=== PATIENT | male | born 1960 | race Caucasian/White ===

== ENCOUNTER → 2019-11-01 | Outpatient (REF) | payer BC ==
[2019-11-01 17:20] LABS: BLOOD UREA NITROGEN 23 MG/DL (7-18); CALCIUM LEVEL 8.6 MG/DL (8.5-10.1); CARBON DIOXIDE LEVEL 30 MEQ/L (21-32); CHLORIDE LEVEL 100 MEQ/L (98-107); CREATININE FOR GFR 1.07 MG/DL (0.70-1.30); GLOMERULAR FILTRATION RATE > 60.0 (>56); GLUCOSE, FASTING 103 MG/DL (70-100); POTASSIUM SERUM 4.4 MEQ/L (3.5-5.1); SODIUM LEVEL 137 MEQ/L (136-145)
== END ==
LOC: M SFHCCLAY 10:23
PROVIDERS: ATTEND Family Medicine
DX: N17.9 Acute kidney failure, unspecified (principal)

== ENCOUNTER → 2019-12-14 | Outpatient (CLI) | payer BC ==
--- NOTE | 2019-12-21 18:07 | SLEEPCENT ---
DATE OF PROCEDURE: 12/14/2019 ORDERED BY: Dr. Alec Franklin Nocturnal polysomnography was performed for evaluation of sleep physiology in this patient with a history of snoring and nonrestorative sleep who has comorbidities of coronary artery disease and cardiac dysrhythmia. 8 hours and 4 minutes of data were reviewed. There were 281.5 minutes of sleep identified. Sleep latency was prolonged at 72 minutes. Rapid eye movement (REM) latency was prolonged at greater than 100 minutes. Sleep architecture showed poor progression and improvement was seen later in the study. Overall sleep efficiency was 58.9%. The patient's electrocardiogram showed sinus rhythm with occasional PACs. Average heart rate 60 beats per minute. EEG showed normal waveforms for awake and sleep. There were 49 respiratory events identified of 10 seconds in duration or greater for an apnea-hypopnea index of 10.4. The events were associated with significant oxygen desaturation into the 70s triggering a cessation of testing for the application of pressure therapy. Shortly after 1:00 a.m. testing was stopped, and the patient was fit with a ResMed AirFit F20 full face mask of medium size. Throughout the remaining hours of testing, pressure titration was performed to an optimal pressure of +18. There was some limb activity. Limb movement arousal index, however, was only 1.5. IMPRESSION: Obstructive sleep apnea syndrome (G47.33). Apnea-hypopnea index 10.4. RECOMMENDATIONS: Nightly use of pressure therapy 18 of water. MTDD
== END ==
LOC: M SLEEP 20:00
PROVIDERS: ATTEND Internal Medicine Pulmonary Disease
DX: G47.33 Obstructive sleep apnea (adult) (pediatric) (principal)

== ENCOUNTER → 2020-02-19 | Outpatient (REF) | payer BC, OTHER | LOC: M SFHCCLAY 18:57 | PROVIDERS: ATTEND Family Medicine | DX: L02.01 Cutaneous abscess of face (principal) ==

== ENCOUNTER 2021-05-08 17:25 | Inpatient (IN) | payer OTHER, MEDICAID ==
[~2021-05-08] VITALS: Ht 182.9 cm; Wt 129.6 kg
[2021-05-08 18:40] LABS: CALCIUM LEVEL 9.1 MG/DL (8.5-10.1); CREATININE FOR GFR 2.06 MG/DL (0.70-1.30); GLOMERULAR FILTRATION RATE 35.4 (>56); POTASSIUM SERUM 5.5 MEQ/L (3.5-5.1)
[2021-05-08] MEDS ORDERED: NS 1,000 ML IV ONE (23:40)
[2021-05-09 00:20] LABS: BASO # 0.1 10^3/uL (0.0-0.2); BASO % 0.7 % (0.0-1.0); EOS # 0.6 10^3/uL (0.0-0.5); EOS % 7.5 % (0.0-3.0); HEMATOCRIT 34.1 % (42.0-52.0); HEMOGLOBIN 10.7 g/dl (13.5-17.5); LYMPH # 2.6 10^3/uL (1.5-5.0); LYMPH % 30.9 % (24.0-44.0); MEAN CORPUSCULAR HEMOGLOBIN 31.6 pg (27.0-33.0); MEAN CORPUSCULAR HGB CONC 31.4 g/dl (32.0-36.5); MEAN CORPUSCULAR VOLUME 100.6 fl (80.0-96.0); MONO # 0.4 10^3/uL (0.0-0.8); MONO % 5.1 % (2.0-8.0); NEUTROPHILS # 4.6 10^3/uL (1.5-8.5); NEUTROPHILS % 55.4 % (36.0-66.0); PLATELET COUNT, AUTOMATED 253 10^3/uL (150-450); RED BLOOD COUNT 3.39 10^6/uL (4.30-6.10); WHITE BLOOD COUNT 8.4 10^3/uL (4.0-10.0)
[2021-05-09 00:48] LABS: HEMOGLOBIN A1c 5.8 %
[2021-05-09 00:49] LABS: CK-MB VALUE MASS 1.1 NG/ML (<3.6); CPK CREATINE PHOSPHOKINASE 76 U/L (39-308); MB/CK RELATIVE INDEX 1.45 (< OR =4)
[2021-05-09 00:58] LABS: BILIRUBIN,DIRECT 0.1 MG/DL (0.0-0.2); BILIRUBIN,TOTAL 0.4 MG/DL (0.2-1.0); FREE T4 1.45 NG/DL (0.76-1.46); THYROID STIMULATING HORMONE 0.685 uIU/ML (0.358-3.740); TOTAL PROTEIN 8.2 GM/DL (6.4-8.2)
--- OUTSIDE RECORDS SUMMARY | 2021-05-09 01:41 | CCD ---
Author Author [facility] Organization [facility] Address Unknown Phone Unavailable Care Team Providers Care Learning Disabilities Resource Teacher Name Role Phone Jenny Rosario Unavailable PROBLEMS Type Condition ICD9-CM Code [id number] Code Onset Dates Condition S tatus W/U Status Risk SNOMED Code Notes Problem Bilateral tinnitus H93.13 Active confirmed 4 592077152260 Problem Arteriosclerotic heart disease I25.10 Active confir med 70006248 Problem Muscular deconditioning R29.898 Active confirmed 24763308 Problem Cigarette nicotine dependence in remission F17.211 Active confirmed 726573737 Problem Low back pain M54.5 Active confirmed 972398 009 Problem Chronic systolic (congestive) heart failure I50.22 Active confirmed 624244090 Problem Paroxysmal atrial fibrillation I48.0 Active confir med 869144345 Problem Non-seasonal allergic rhinitis, unspecified trigger J30.89 Active confirmed 64361757 Problem Chronic obstructive pulmonary disease, unspecified COPD ty pe J44.9 Active confirmed 78968690 Problem 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 Active confirmed 363350770 Problem Pulmonary nodule R91.1 Active confirmed 786 166097 Problem Other chronic pain G89.29 Active confirmed 8 3880193 Problem Obstructive sleep apnea (adult) (pediatric) G47.33 Active confirmed 39705455 Problem Nicotine dependence, cigarettes, uncomplicated F17 .210 Active confirmed 65892664 Problem Decreased appetite R63.0 Active confirmed 6 [id number] ALLERGIES No Known Allergies ENCOUNTERS from 1960 to 2021-05-06 Encounter Location Date Provider Diagnosis [facility] [place] [address] [phone] [place] [address] Apr, Jenny Rosario Low back pain M54.5 IMMUNIZATIONS No Information SOCIAL HISTORY Tobacco Use: Social History Observation Description Date Details (start date - stop date) Current Smoker Sex Assigned At : Social History Observation Description Sex Assigned At Unknown Education: Question Answer Notes Level of Education: Finished High School Audit Question Answer Notes Total Score: 5 Interpretation: Alcohol Education Sexual Hx: Question Answer Notes Had sex in the last 12 months (vaginal, oral, or anal)? No Have you ever had an STD? No Drug and Alcohol Question Answer Notes Total Score: 1 Interpretation: Low level Alcohol Screening: Question Answer Notes Did you have a drink containing alcohol in the past year? Ye s Points 3 Interpretation Negative How often did you have six or more drinks on one occas ion in the past year? Never (0 points) How many drinks did you have on a typica l day when you were drinking in the past year? 1 or 2 (0 points) How often did you have a drink containing alcohol in t he past year? Two to three times per week (3 points) Tobacco Use: Question Answer Notes Are you a: current smoker Smoking 0-5 cigarett es per day REASON FOR REFERRAL No Information VITAL SIGNS No information MEDICATIONS Medication SIG (Take, Route, Frequency, Duration) Notes Start Da te End Date Status ProAir HFA 108 (90 Base) mcg/act 2 puffs as needed Inh alation qid prn for 90 day(s) Active Lisinopril 40 MG TAKE ONE TABLET BY MOUTH EVERY DAY for 90 Active Metoprolol Tartrate 25 MG 1 tablet with food Orally Twice a day for 90 days Active Fluticasone Propionate 50 MCG/ACT 1 spray in each nostril Nasally bid Active Amiodarone HCl 200 MG 1/2 tablet Orally TUE,TUE,TUE everyother day Active Atorvastatin Calcium 40 MG TAKE ONE TABLET BY MOUTH EVERY DAY for 90 Active Umeclidinium-Vilanterol 62.5-25 MCG/INH 1 puff Inhalation Once a day Active Acetaminophen 325 MG 1 capsule as needed Orally every 6 hrs Active Furosemide 40 MG TAKE ONE TABLET BY MOUTH EVERY DAY for 90 Active Apixaban 5 MG as directed Orally bid Active Spironolactone 50 MG TAKE ONE TABLET BY MOUTH EVERY DAY for 90 Active Albuterol 90 MCG/ACT 1-2 puff Inhalation every 4 hours as needed for 30 days Active Levalbuterol HCl 1.25 MG/3ML 3 ml Inhalation every 8 hrs Active traMADol HCl 50 MG 1 tablet as needed Orally bid for 30 Days Apr, Active PROCEDURES No Information RESULTS No Results REASON FOR VISIT Refill - Tramadol MEDICAL (GENERAL) HISTORY Type Description Date Medical History Pulmonary embolism Medical History AFIB Medical History Infarctions x3 Medical History hypertension Medical History oxygen-dependent COPD: 3 L Medical History COVID-19 Surgical History No know Surgical history Hospitalization History [facility] 2019 Hospitalization History Heart attacks Goals Section No Information Health Concerns No Information MEDICAL EQUIPMENT No Information MENTAL STATUS No Information FUNCTIONAL STATUS No Information ASSESSMENTS Encounter Date Diagnosis Assessment Notes Treatment Notes Treatm ent Clinical Notes Apr, Low back pain (ICD-10 - M54.5) PLAN OF TREATMENT Medication Medication Name Sig Start Date Stop Date Atorvastatin Calcium 40 MG TAKE ONE TABLET BY MOUTH EVERY DAY fo r 90 Lisinopril 40 MG TAKE ONE TABLET BY MOUTH EVERY DAY for 90 Furosemide 40 MG TAKE ONE TABLET BY MOUTH EVERY DAY for 90 Spironolactone 50 MG TAKE ONE TABLET BY MOUTH EVERY DAY for 90 traMADol HCl 50 MG 1 tablet as needed Orally bid for 30 Days Apr, Next Appt Details Provider Name:Jenny Rosario, 2021-05 01:00:00 PM, [address] , , [place], [address], Insurance Providers Payer Name Payer Address Payer Phone Insured Name Patient Relati onship to Insured Coverage Start Date Coverage End Date [facility] [address] [facility] [address] [phone] DAYCHRISTIANO self MEDICAID [employer] [address] [facility] [address] [phone] DAY,CHRISTIANO Lr self
--- OUTSIDE RECORDS SUMMARY | 2021-05-09 01:41 | CCD ---
Author Author [facility] Organization [facility] Address Unknown Phone Unavailable Care Team Providers Care Manager Privacy Name Role Phone Jenny Rosario Unavailable PROBLEMS Type Condition ICD9-CM Code YQJ85-VA Code Onset Dates Condition S tatus W/U Status Risk SNOMED Code Notes Problem Bilateral tinnitus H93.13 Active confirmed 4 [id number] Problem Arteriosclerotic heart disease I25.10 Active confir med 25335686 Problem Muscular deconditioning R29.898 Active confirmed 89679458 Problem Cigarette nicotine dependence in remission F17.211 Active confirmed 959147178 Problem Low back pain M54.5 Active confirmed 835444 009 Problem Chronic systolic (congestive) heart failure I50.22 Active confirmed 394225735 Problem Paroxysmal atrial fibrillation I48.0 Active confir med 371009871 Problem Non-seasonal allergic rhinitis, unspecified trigger J30.89 Active confirmed 65532839 Problem Chronic obstructive pulmonary disease, unspecified COPD ty pe J44.9 Active confirmed 35478078 Problem 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 [place] [address] [phone] [place] [address] Feb, Jenny Rosario Low back pain M54.5 IMMUNIZATIONS [...] 1/2 tablet Orally TUE,TUE,TUE everyother day Active traMADol HCl 50 MG 1 tablet as needed Orally bid for 30 Days Feb, Active Umeclidinium-Vilanterol 62.5-25 MCG/INH 1 puff Inhalation Once a day Active Acetaminophen 325 MG 1 capsule as needed Orally every 6 hrs Active Spironolactone 50 MG TAKE ONE TABLET BY MOUTH EVERY DAY for 90 Active Apixaban 5 MG as directed Orally bid Active Atorvastatin Calcium 40 MG TAKE ONE TABLET BY MOUTH EVERY DAY for 90 Active Albuterol 90 MCG/ACT 1-2 puff Inhalation every 4 hours as needed for 30 days Active Levalbuterol HCl 1.25 MG/3ML 3 ml Inhalation every 8 hrs Active Furosemide 40 MG TAKE ONE TABLET BY MOUTH EVERY DAY for 90 Active PROCEDURES No Information RESULTS No Results REASON FOR VISIT Refill - Tramadol MEDICAL (GENERAL) HISTORY Type Description Date Medical History Pulmonary embolism Medical History AFIB Medical History Infarctions x3 Medical History hypertension Medical History oxygen-dependent COPD: 3 L Medical History COVID-19 Surgical History No know Surgical history Hospitalization History [facility] for [facility] 2019 Hospitalization History Heart attacks Goals Section No Information Health Concerns No Information MEDICAL EQUIPMENT No Information MENTAL STATUS No Information FUNCTIONAL STATUS No Information ASSESSMENTS Encounter Date Diagnosis Assessment Notes Treatment Notes Treatm ent Clinical Notes Feb, Low back pain (ICD-10 - M54.5) PLAN OF TREATMENT Medication Medication Name Sig Start Date Stop Date traMADol HCl 50 MG 1 tablet as needed Orally bid for 30 Days Feb, Lisinopril 40 MG TAKE ONE TABLET BY MOUTH EVERY DAY for 90 Spironolactone 50 MG TAKE ONE TABLET BY MOUTH EVERY DAY for 90 Atorvastatin Calcium 40 MG TAKE ONE TABLET BY MOUTH EVERY DAY fo r 90 Furosemide 40 MG TAKE ONE TABLET BY MOUTH EVERY DAY for 90 Next Appt Details Provider Name:Jenny Rosario, 2021-05 01:00:00 PM, [address] , , [place], [address], Insurance Providers Payer Name Payer Address Payer Phone Insured Name Patient Relati onship to Insured Coverage Start Date Coverage End Date MEDICAID [employer] [address] [facility] [id number] [place] [facility] [address] [facility] [address] CHRISTIANO BEASLEY self
--- OUTSIDE RECORDS SUMMARY | 2021-05-09 01:41 | CCD ---
Author Author [facility] Organization [facility] Address Unknown Phone Unavailable Care Team Providers Care Industrial Maintenance Instructor Name Role Phone Jenny Rosario Unavailable PROBLEMS Type Condition ICD9-CM Code SHU59-FA Code Onset Dates Condition S tatus W/U Status Risk SNOMED Code Notes Problem Bilateral tinnitus H93.13 Active confirmed 4 [id number] Problem Arteriosclerotic heart disease I25.10 Active confir med 48696028 Problem Muscular deconditioning R29.898 Active confirmed 37013327 Problem Cigarette nicotine dependence in remission F17.211 Active confirmed 361563999 Problem Low back pain M54.5 Active confirmed 082844 009 Problem Chronic systolic (congestive) heart failure I50.22 Active confirmed 770782326 Problem Paroxysmal atrial fibrillation I48.0 Active confir med 609929899 Problem Non-seasonal allergic rhinitis, unspecified trigger J30.89 Active confirmed 61742363 Problem Chronic obstructive pulmonary disease, unspecified COPD ty pe J44.9 Active confirmed 82723558 Problem 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 Active confirmed 819083751 Problem Pulmonary nodule R91.1 Active confirmed 786 175964 Problem Other chronic pain G89.29 Active confirmed 8 4561336 Problem Obstructive sleep apnea (adult) (pediatric) G47.33 Active confirmed 88318114 Problem Nicotine dependence, cigarettes, uncomplicated F17 .210 Active confirmed 56292183 Problem Decreased appetite R63.0 Active confirmed 6 3836446 ALLERGIES No Known Allergies ENCOUNTERS from 1960 to 2021-04-02 Encounter Location Date Provider Diagnosis [facility] [place] [address] [phone] [place] [address] Mar, Jenny Rosario Low back pain M54.5 IMMUNIZATIONS [...] Notes Start Da te End Date Status Apixaban 5 MG as directed Orally bid Active traMADol HCl 50 MG 1 tablet as needed Orally bid for 30 Days Mar, Active Metoprolol Tartrate 25 MG 1 tablet with food Orally Twice a day for 90 days Active Fluticasone Propionate 50 MCG/ACT 1 spray in each nostril Nasally bid Active Amiodarone HCl 200 MG 1/2 tablet Orally WED,FRI,SUN everyother day Active Umeclidinium-Vilanterol 62.5-25 MCG/INH 1 puff Inhalation Once a day Active ProAir HFA 108 (90 Base) mcg/act 2 puffs as needed Inh alation qid prn for 90 day(s) Active Lisinopril 40 MG TAKE ONE TABLET BY MOUTH EVERY DAY for 90 Active Spironolactone 50 MG TAKE ONE TABLET BY MOUTH EVERY DAY for 90 Active Levalbuterol HCl 1.25 MG/3ML 3 ml Inhalation every 8 hrs Active Atorvastatin Calcium 40 MG TAKE ONE TABLET BY MOUTH EVERY DAY for 90 Active Albuterol 90 MCG/ACT 1-2 puff Inhalation every 4 hours as needed for 30 days Active Acetaminophen 325 MG 1 capsule as [...] History No know Surgical history Hospitalization History [facility] [place] Hospitalization History Heart attacks Goals Section No Information Health Concerns No Information MEDICAL EQUIPMENT No Information MENTAL STATUS No Information FUNCTIONAL STATUS No Information ASSESSMENTS Encounter Date Diagnosis Assessment Notes Treatment Notes Treatm ent Clinical Notes Mar, Low back pain (ICD-10 - M54.5) PLAN OF TREATMENT Medication Medication Name Sig Start Date Stop Date Lisinopril 40 MG TAKE ONE TABLET BY MOUTH EVERY DAY for 90 traMADol HCl 50 MG 1 tablet as needed Orally bid for 30 Days Mar, Spironolactone 50 MG TAKE ONE TABLET BY MOUTH EVERY DAY for 90 Atorvastatin Calcium 40 MG TAKE ONE TABLET BY MOUTH EVERY DAY fo r 90 Furosemide 40 MG TAKE ONE TABLET BY MOUTH EVERY DAY for 90 Next Appt Details Provider Name:Jenny Rosario, 2021-05 01:00:00 PM, [address] , , [place], [address], Insurance Providers Payer Name Payer Address Payer Phone Insured Name Patient Relati onship to Insured Coverage Start Date Coverage End Date MEDICAID App[employer] [address] [facility] [id number] [place]RIST[place] [facility] [address] [facility] [phone] CHRISTIANO BEASLEY self
--- OUTSIDE RECORDS SUMMARY | 2021-05-09 01:42 | CCD ---
Author Author [facility] Organization [facility] Address Unknown Phone Unavailable Care Team Providers Care Terrazzo Polisher Name Role Phone Kocan, J Siomara CHAIN HOIST OPERATOR Unavailable Unavailable Kocan, J Siomara CHAIN HOIST OPERATOR Unavailable Unavailable Kocan, J Siomara CHAIN HOIST OPERATOR Unavailable Unavailable Kocan, J Siomara CHAIN HOIST OPERATOR Unavailable Unavailable Kocan, J Siomara CHAIN HOIST OPERATOR Unavailable Unavailable Kocan, J Siomara CHAIN HOIST OPERATOR Unavailable Unavailable Kocan, J Siomara CHAIN HOIST OPERATOR Unavailable Unavailable Kocan, J Siomara CHAIN HOIST OPERATOR Unavailable Unavailable Kocan, J Siomara CHAIN HOIST OPERATOR Unavailable Unavailable Kocan, J Siomara CHAIN HOIST OPERATOR Unavailable Unavailable Kocan, J Siomara CHAIN HOIST OPERATOR Unavailable Unavailable Kocan, J Siomara CHAIN HOIST OPERATOR Unavailable Unavailable Kocan, J Siomara CHAIN HOIST OPERATOR Unavailable Unavailable Sloane Neumann MD Unavailable Unavailable Sloane Neumann MD Unavailable Unavailable Sloane Neumann MD Unavailable Unavailable Sloane Neumann MD Unavailable Unavailable Sloane Neumann MD Unavailable Unavailable Sloane Neumann MD Unavailable Unavailable Sloane Neumann MD Unavailable Unavailable Sloane Neumann MD Unavailable Unavailable Sloane Neumann MD Unavailable Unavailable Sloane Neumann MD Unavailable Unavailable Sloane Neumann MD Unavailable Unavailable Sloane Neumann MD Unavailable Unavailable Sloane Neumann MD Unavailable Unavailable Sloane Neumann MD Unavailable Unavailable Sloane Neumann MD Unavailable Unavailable Sloane Neumann MD Unavailable Unavailable Sloane Neumann MD Unavailable Unavailable Sloane Neumann MD Unavailable Unavailable Sloane Neumann MD Unavailable Unavailable Sloane Neumann MD Unavailable Unavailable Sloane Neumann MD Unavailable Unavailable Sloane Neumann MD Unavailable Unavailable Sloane Neumann MD Unavailable Unavailable Sloane Neumann MD Unavailable Unavailable Sloane Neumann MD Unavailable Unavailable Sloane Neumann MD Unavailable Unavailable Sloane Neumann MD Unavailable Unavailable Sloane Neumann MD Unavailable Unavailable Sloane Neumann MD Unavailable Unavailable Sloane Neumann MD Unavailable Unavailable Sloane Neumann MD Unavailable Unavailable Sloane Neumann MD Unavailable Unavailable Sloane Neumann MD Unavailable Unavailable Sloane Neumann MD Unavailable Unavailable Sloane Neumann MD Unavailable Unavailable Sloane Neumann MD Unavailable Unavailable Sloane Neumann MD Unavailable Unavailable Sloane Neumann MD Unavailable Unavailable Sloane Neumann MD Unavailable Unavailable Sloane Neumann MD Unavailable Unavailable Sloane Neumann MD Unavailable Unavailable Sloane Neumann MD Unavailable Unavailable Sloane Neumann MD Unavailable Unavailable Sloane Neumann MD Unavailable Unavailable Sloane Neumann MD Unavailable Unavailable Sloane Neumann MD Unavailable Unavailable Sloane Neumann MD Unavailable Unavailable Sloane Neumann MD Unavailable Unavailable Sloane Neumann MD Unavailable Unavailable Sloane Neumann MD Unavailable Unavailable Sloane Neumann MD Unavailable Unavailable Sloane Neumann MD Unavailable Unavailable Sloane Neumann MD Unavailable Unavailable Sloane Neumann MD Unavailable Unavailable Sloane Neumann MD Unavailable Unavailable Sloane Neumann MD Unavailable Unavailable Sloane Neumann MD Unavailable Unavailable Sloane Neumann MD Unavailable Unavailable Sloane Neumann MD Unavailable Unavailable Sloane Neumann MD Unavailable Unavailable Sloane Neumann MD Unavailable Unavailable Sloane Neumann MD Unavailable Unavailable Sloane Neumann MD Unavailable Unavailable Sloane Neumann MD Unavailable Unavailable Sloane Neumann MD Unavailable Unavailable Sloane Neumann MD Unavailable Unavailable Sloane Neumann MD Unavailable Unavailable Sloane Neumann MD Unavailable Unavailable Sloane Neumann MD Unavailable Unavailable Sloane Neumann MD Unavailable Unavailable Sloane Neumann MD Unavailable Unavailable Sloane Neumann MD Unavailable Unavailable Sloane Neumann MD Unavailable Unavailable Sloane Neumann MD Unavailable Unavailable JULIA COFFMAN MD Unavailable Unavailable JULIA COFFMAN MD Unavailable Unavailable JULIA COFFMAN MD Unavailable Unavailable JULIA COFFMAN MD Unavailable Unavailable AUGUSTUS, DUMONT MD Unavailable Unavailable AUGUSTUS, DUMONT MD Unavailable Unavailable AUGUSTUS, DUMONT MD Unavailable Unavailable AUGUSTUS, DUMONT MD Unavailable Unavailable AUGUSTUS, DUMONT MD Unavailable Unavailable AUGUSTUS, DUMONT MD Unavailable Unavailable AUGUSTUS, DUMONT MD Unavailable Unavailable AUGUSTUS, DUMONT MD Unavailable Unavailable AUGUSTUS, DUMONT MD Unavailable Unavailable AUGUSTUS, DUMONT MD Unavailable Unavailable AUGUSTUS, DUMONT MD Unavailable Unavailable AUGUSTUS, DUMONT MD Unavailable Unavailable AUGUSTUS, DUMONT MD Unavailable Unavailable AUGUSTUS, DUMONT MD Unavailable Unavailable AUGUSTUS, DUMONT MD Unavailable Unavailable AUGUSTUS, DUMONT MD Unavailable Unavailable AUGUSTUS, DUMONT MD Unavailable Unavailable AUGUSTUS, DUMONT MD Unavailable Unavailable AUGUSTUS, DUMONT MD Unavailable Unavailable AUGUSTUS, DUMONT MD Unavailable Unavailable AUGUSTUS, DUMONT MD Unavailable Unavailable AUGUSTUS, DUMONT MD Unavailable Unavailable AUGUSTUS, DUMONT MD Unavailable Unavailable AUGUSTUS, DUMONT MD Unavailable Unavailable AUGUSTUS, DUMONT MD Unavailable Unavailable AUGUSTUS, DUMONT MD Unavailable Unavailable AUGUSTUS, DUMONT MD Unavailable Unavailable AUGUSTUS, DUMONT MD Unavailable Unavailable AUGUSTUS, DUMONT MD Unavailable Unavailable AUGUSTUS, DUMONT MD Unavailable Unavailable AUGUSTUS, DUMONT MD Unavailable Unavailable AUGUSTUS, DUMONT MD Unavailable Unavailable AUGUSTUS, DUMONT MD Unavailable Unavailable AUGSUTUS, DUMONT MD Unavailable Unavailable AUGUSTUS, DUMONT MD Unavailable Unavailable AUGUSTUS, DUMONT MD Unavailable Unavailable AUGUSTUS, DUMONT MD Unavailable Unavailable AUGUSTUS, DUMONT MD Unavailable Unavailable AUGUSTUS, DUMONT MD Unavailable Unavailable AUGUSTUS, DUMONT MD Unavailable Unavailable AUGUSTUS, DUMONT MD Unavailable Unavailable AUGUSTUS, DUMONT MD Unavailable Unavailable AUGUSTUS, DUMONT MD Unavailable Unavailable AUGUSTUS, DUMONT MD Unavailable Unavailable AUGUSTUS, JULIA BLOCK Unavailable Unavailable AUGUSTUS, DUMONT MD Unavailable Unavailable AUGUSTUS, DUMONT MD Unavailable Unavailable AUGUSTUS, DUMONT MD Unavailable Unavailable AUGUSTUS, DUMONT MD Unavailable Unavailable AUGUSTUS, DUMONT MD Unavailable Unavailable AUGUSTUS, DUMONT MD Unavailable Unavailable SEARS, A SANDIP DO Unavailable Unavailable SEARS, A SANDIP DO Unavailable Unavailable SEARS, A SANDIP DO Unavailable Unavailable SEARS, A SANDIP DO Unavailable Unavailable SEARS, A SANDIP DO Unavailable Unavailable SEARS, A SANDIP DO Unavailable Unavailable SEARS, A SANDIP DO Unavailable Unavailable SEARS, A SANDIP DO Unavailable Unavailable SEARS, A SANDIP DO Unavailable Unavailable SEARS, A SANDIP DO Unavailable Unavailable SEARS, A SANDIP DO Unavailable Unavailable SEARS, A SANDIP DO Unavailable Unavailable SEARS, A SANDIP DO Unavailable Unavailable SEARS, A SANDIP DO Unavailable Unavailable SEARS, A SANDIP DO Unavailable Unavailable SEARS, A SANDIP DO Unavailable Unavailable SEARS, A SANDIP DO Unavailable Unavailable SEARS, A SANDIP DO Unavailable Unavailable SEARS, A SANDIP DO Unavailable Unavailable SEARS, A SANDIP DO Unavailable Unavailable SEARS, A SANDIP DO Unavailable Unavailable SEARS, A SANDIP DO Unavailable Unavailable SEARS, A SANDIP DO Unavailable Unavailable SEARS, A SANDIP DO Unavailable Unavailable SEARS, A SANDIP DO Unavailable Unavailable SEARS, A SANDIP DO Unavailable Unavailable SEARS, A SANDIP DO Unavailable Unavailable SEARS, A SANDIP DO Unavailable Unavailable SEARS, A SANDIP DO Unavailable Unavailable SEARS, A SANDIP DO Unavailable Unavailable SEARS, A SANDIP DO Unavailable Unavailable SEARS, A SANDIP DO Unavailable Unavailable SEARS, A SANDIP DO Unavailable Unavailable SEARS, A SANDIP DO Unavailable Unavailable SEARS, A SANDIP DO Unavailable Unavailable SEARS, A SANDIP DO Unavailable Unavailable SEARS, A SANDIP DO Unavailable Unavailable SEARS, A SANDIP DO Unavailable Unavailable SEARS, A SANDIP DO Unavailable Unavailable SEARS, A SANDIP DO Unavailable Unavailable SEARS, A SANDIP DO Unavailable Unavailable SEARS, A SANDIP DO Unavailable Unavailable SEARS, A SANDIP DO Unavailable Unavailable SEARS, A SANDIP DO Unavailable Unavailable SEARS, A SANDIP DO Unavailable Unavailable SEARS, A SANDIP DO Unavailable Unavailable SEARS, A SANDIP DO Unavailable Unavailable SEARS, A SANDIP DO Unavailable Unavailable Re-disclosure Warning The records that you are about to access may contain information from federally-assisted alcohol or drug abuse programs. If such information is present, then the following federally mandated warning applies: This information has been disclosed to you from records protected by federal confidentiality rules (42 CFR part 2). The federal rules prohibit you from making any further disclosure of this information unless further disclosure is expressly permitted by the written consent of the person to whom it pertains or as otherwise permitted by 42 CFR part 2. A general authorization for the release of medical or other information is NOT sufficient for this purpose. The Federal rules restrict any use of the information to criminally investigate or prosecute any alcohol or drug abuse patient.The records that you are about to access may contain highly sensitive health information, the redisclosure of which is protected by Article 27-F of the [facility] Public Health law. If you continue you may have access to information: Regarding HIV / AIDS; Provided by facilities licensed or operated by the [facility] Office of Mental Health; or Provided by the [facility] Office for People With Developmental Disabilities. If such information is present, then the following [facility] mandated warning applies: This information has been disclosed to you from confidential records which are protected by state law. State law prohibits you from making any further disclosure of this information without the specific written consent of the person to whom it pertains, or as otherwise permitted by law. Any unauthorized further disclosure in violation of state law may result in a fine or residential sentence or both. A general authorization for the release of medical or other information is NOT sufficient authorization for further disc losure. Encounters Encounter Providers Location Date Indications Data Source(s ) Outpatient Attender: Siomara Teran RNPReferrer: Jayme [email or web address] 05/06/2021 12:00:00 AM EST - 05/06/2021 03:10:18 PM EST [facility] Unknown [address] [facility] [id number] 05/06/2021 12:00:00 AM EST eCW1 ([facility]) Unknown [address] [facility] [address] 04/01/2021 12:00:00 AM EDT eCW1 ([facility]) Outpatient Attender: Siomara Teran RNPReferrer: Siomara [email or web address] 03/20/2021 02:59:47 PM EDT - 03/20/2021 03:29:32 PM EDT [facility] Unknown [address] [facility] [place] [address] 03/03/2021 12:00:00 AM EDT eCW1 ([facility]) Unknown [address] [facility] [place] [address] 01/14/2021 12:00:00 AM EDT eCW1 ([facility]) Outpatient [address] [facility] [place] [address] 01/14/2021 12:00:00 AM EDT eCW1 ([facility]) Outpatient Attender: Siomara Teran RNPReferrer: Jayme [email or web address] 12/31/2020 12:00:00 AM EDT - 01/01/2021 08:39:50 AM EDT [facility] Outpatient Attender: SANDIP Quan/Macy/Garry/Rubin 12/02/2020 02:00:00 PM EDT [facility] ([facility]) [place] [address] [facility] [place] [address] 09/17/2020 12:00:00 AM EDT eCW1 ([facility]) [place] [address] [facility] [place] [address] 09/08/2020 12:00:00 AM EDT eCW1 ([facility]) [place] [address] [facility] [place] [address] 08/21/2020 12:00:00 AM EST eCW1 ([facility]) Outpatient Attender: JULIA COFFMAN MD [email or web address] 12:00:00 AM EST - 06/06/2020 02:46:59 PM EST [facility] [place] [address] [facility] [place] [address] 04/23/2020 12:00:00 AM EST eCW1 ([facility]) Immunizations Vaccine Date Status Description Data Source(s) COVID-19 VACCINE Mark Forged 02/05/2021 12:00:00 AM EDT completed [facility] Vaccine Series Complete: YESThis Data wa s Submitted to [facility] Via [email or web address]. COVID-19 VACCINE Mark Forged 01/15/2021 12:00:00 AM EDT completed [facility] Vaccine Series Complete: NOThis Data was Submitted to [facility] [email or web address] Medications Medication Brand Name Start Date Product Form Dose Route Admi nistrative Instructions Pharmacy Instructions Status Indications Reaction Description Data Source(s) tramadol hydrochloride 50 MG Oral Tablet traMADol HCl 50 MG traMADol HCl 50 MG 05/06/2021 12:00:00 AM EST 1.0 {tablet_as_needed} active traMADol HCl 50 MG eCW1 ([facility]) tramadol hydrochloride 50 MG Oral Tablet traMADol HCl 50 MG traMADol HCl 50 MG 04/02/2021 12:00:00 AM EDT 1.0 {tablet_as_needed} active traMADol HCl 50 MG eCW1 ([facility]) tramadol hydrochloride 50 MG Oral Tablet traMADol HCl 50 MG traMADol HCl 50 MG 03/03/2021 12:00:00 AM EDT 1.0 {tablet_as_needed} active traMADol HCl 50 MG eCW1 ([facility]) tramadol hydrochloride 50 MG Oral Tablet traMADol HCl 50 MG traMADol HCl 50 MG 01/27/2021 12:00:00 AM EDT 1.0 {tablet_as_needed} active traMADol HCl 50 MG eCW1 ([facility]) Amiodarone hydrochloride 200 MG Oral Tablet amiodarone (PACERONE) 200 MG tablet amiodarone (PACERONE) 200 MG tablet 12/31/2020 12:00:00 AM EDT active Cardiomyopathy, unspecified typeParoxysmal atrial fibrillation Take 1/2 tablet 3 times a week by mouth. [facility] Cardiomyopathy, unspecified type Paroxysmal atrial fibrillation Furosemide 40 MG Oral Tablet furosemide (LASIX) 40 MG tablet furosemide (LASIX) 40 MG tablet 12/31/2020 12:00:00 AM EDT 40 mg Oral active Cardiomyopathy, unspecified type Take 1 tablet (40 mg total) by mouth bridger ly [facility] Cardiomyopathy, unspecified type albuterol (PROVENTIL HFA;VENTOLIN HFA) 108 (90 Base) M CG/ACT inhaler 8118-3113-77 12/17/2020 12:00:00 AM EDT activ e INHALE TWO PUFFS BY MOUTH EVERY 4 HOURS NEEDED [facility] Fluticasone-Salmeterol 232-14 MCG/ACT AEPB 0477-0526-70 12/06/2020 12:00:00 AM EDT active INHALE ONE PUFF B Y MOUTH TWICE A DAY [facility] Metoprolol Tartrate 25 MG Oral Tablet me toprolol tartrate (LOPRESSOR) 25 MG tablet metoprolol tartrate (LOPRESSOR) 25 MG tablet 11/06/2020 12:0 0:00 AM EDT active TAKE ONE TABLET BY MOUTH TWICE A DAY [facility] apixaban 5 MG Oral Tablet Apixaban (ELIQUIS) 5 MG TABS tablet Apixaban (ELIQUIS) 5 MG TABS tablet 09/08/2020 12:00:00 AM EDT 5 mg Oral a ctive Take 1 tablet (5 mg total) by mouth 2 (two) times a day [facility] Spironolactone 50 MG Oral Tablet spironolactone (ALDAC TONE) 50 MG tablet spironolactone (ALDACTONE) 50 MG tablet 06/06/2020 12:00:00 AM EST 25 mg Oral active Take 0.5 tablets (25 mg t otal) by mouth daily [facility] Lisinopril 40 MG Oral Tablet lisinopril (PRINIVIL,ZEST RIL) 40 MG tablet lisinopril (PRINIVIL,ZESTRIL) 40 MG tablet 06/06/2020 12:00:00 AM EST 40 mg Oral active Take 1 tablet (40 mg total) by mouth daily [facility] Lisinopril 40 MG Oral Tablet lisinopril (PRINIVIL,ZEST RIL) 40 MG tablet lisinopril (PRINIVIL,ZESTRIL) 40 MG tablet 06/06/2020 12:00:00 AM EST 20 mg Oral aborted Take 0.5 tablets (20 mg total) by mouth daily [facility] 90 mcg/actuation 05/13/2020 12:00:00 AM EST HFA aerosol inha ler 8 INHALE TWO PUFFS BY MOUTH EVERY 4 HOURS NEEDED INHALE TWO PUFFS BY MOUTH EVERY 4 HOURS NEEDED SOLD: 06/24/2020 [facility] 90 mcg/actuation 05/13/2020 12:00:00 AM EST HFA aerosol inha ler 8 INHALE TWO PUFFS BY MOUTH EVERY 4 HOURS NEEDED INHALE TWO PUFFS BY MOUTH EVERY 4 HOURS NEEDED SOLD: 05/16/2020 [facility] 232-14 mcg/actuation 04/26/2020 12:00:00 AM EST aerosol powdr breath activated 1 INHALE ONE PUFF BY MOUTH TWICE A DAY INHA LE ONE PUFF BY MOUTH TWICE A DAY SOLD: 04/29/2020 [facility] 62.5 mcg/actuation 04/26/2020 12:00:00 AM EST blister with d evice 30 INHALE ONE PUFF BY MOUTH EVERY DAY INHALE ONE PUFF BY MOUTH EVERY DAY SOLD: 06/24/2020 [facility] 62.5 mcg/actuation 04/26/2020 12:00:00 AM EST blister with d evice 30 INHALE ONE PUFF BY MOUTH EVERY DAY INHALE ONE PUFF BY MOUTH EVERY DAY SOLD: 04/29/2020 [facility] 232-14 mcg/actuation 04/26/2020 12:00:00 AM EST aerosol powdr breath activated 1 INHALE ONE PUFF BY MOUTH TWICE A DAY INHA LE ONE PUFF BY MOUTH TWICE A DAY SOLD: 06/24/2020 [facility] 7 ACTUAT umeclidinium 0.0625 MG/ACTUAT D ry Powder Inhaler [Incruse] INCRUSE ELLIPTA 62.5 MCG/INH AEPB INCRUSE ELLIPTA 62.5 MCG/INH AEPB 04/26/2020 12:00:00 AM EST active INHALE ONE PUFF B Y MOUTH EVERY DAY [facility] 7 ACTUAT umeclidinium 0.0625 MG/ACTUAT Dry Powder Inha ler [Incruse] Incruse Ellipta 04/25/2020 12:00:00 AM EST RESPIRATORY active [facility] ([facility]) Airduo Respiclick 232/14 Airduo Respiclick 232/14 04/25/2020 12:00: 00 AM EST RESPIRATORY active MEDENT ([facility] 60 ACTUAT Fluticasone propionate 0.5 MG/ ACTUAT / salmeterol 0.05 MG/ACTUAT Dry Powder Inhaler [Advair] ADVAIR DISKUS 500-50 MCG/DOSE DISKUS ADVAIR DISKUS 500- 50 MCG/DOSE DISKUS 03/17/2020 12:00:00 AM EDT active INHALE ONE PUFF BY MOUTH TWICE A DAY [facility] 2.5 mcg/actuation 02/18/2020 12:00:00 AM EDT mist 4 INHALE TWO PUFFS BY MOUTH EVERY DAY INHALE TWO PUFFS BY MOUTH EVERY DAY SOLD: 03/10/2020 [facility] 500-50 mcg/dose 02/18/2020 12:00:00 AM EDT blister with minoo ce 60 INHALE ONE PUFF BY MOUTH TWICE A DAY INHALE ONE PUFF BY MOUTH TWICE A DAY SOLD: 03/19/2020 [facility] 2.5 mcg/actuation 02/18/2020 12:00:00 AM EDT mist 4 INHALE TWO PUFFS BY MOUTH EVERY DAY INHALE TWO PUFFS BY MOUTH EVERY DAY SOLD: 03/19/2020 [facility] 2.5 mg /3 mL (0.083 %) 02/14/2020 12:00:00 AM EDT solu tion for nebulization 300 USE 1 VIAL VIA NEBULIZER FOUR TIMES A DA Y AND NEEDED USE 1 VIAL VIA NEBULIZER FOUR TIMES A DAY AND NEEDED SOLD: 06/24/2020 [facility] 40 mg 02/14/2020 12:00:00 AM EDT tablet 180 TAKE ONE TABLET BY MOUTH TWICE A DAY TAKE ONE TABLET BY MOUTH TWICE A DAY SOLD: 05/16/2020 [facility] 40 mg 02/14/2020 12:00:00 AM EDT tablet 90 TAKE ONE TABLET BY MOUTH EVERY DAY TAKE ONE TABLET BY MOUTH EVERY DAY SOLD: 05/16/2020 [facility] atorvastatin 40 MG Oral Tablet ATORVASTATIN CALCIUM 02/14/2020 1 2:00:00 AM EDT tablet 90 TAKE ONE TABLET BY MOUTH EVERY D AY TAKE ONE TABLET BY MOUTH EVERY DAY SOLD: 05/16/2020 [facility] 25 mg 02/14/2020 12:00:00 AM EDT tablet 180 TAKE ONE TABLET BY MOUTH TWICE A DAY TAKE ONE TABLET BY MOUTH TWICE A DAY SOLD: 05/16/2020 [facility] 50 mg 02/14/2020 12:00:00 AM EDT tablet 90 TAKE ONE TABLET BY MOUTH EVERY DAY TAKE ONE TABLET BY MOUTH EVERY DAY SOLD: 05/16/2020 [facility] Amiodarone hydrochloride 200 MG Oral Tablet amiodarone (PACERONE) 200 MG tablet amiodarone (PACERONE) 200 MG tablet 02/13/2020 12:00:00 AM EDT 200 mg Oral aborted Take 1 tablet (200 mg total) by mouth daily [facility] Furosemide 40 MG Oral Tablet furosemide (LASIX) 40 MG tablet furosemide (LASIX) 40 MG tablet 02/13/2020 12:00:00 AM EDT 40 mg Oral abort ed Take 1 tablet (40 mg total) by mouth 2 (two) times a day [facility] Lisinopril 40 MG Oral Tablet lisinopril (PRINIVIL,ZEST RIL) 40 MG tablet lisinopril (PRINIVIL,ZESTRIL) 40 MG tablet 02/13/2020 12:00:00 AM EDT 40 mg Oral aborted Take 1 tablet (40 mg total) by mouth daily [facility] 90 mcg/actuation 02/13/2020 12:00:00 AM EDT HFA aerosol inha ler 8 INHALE TWO PUFFS BY MOUTH EVERY 4 HOURS NEEDED INHALE TWO PUFFS BY MOUTH EVERY 4 HOURS NEEDED SOLD: 04/17/2020 [facility] Spironolactone 50 MG Oral Tablet spironolactone (ALDAC TONE) 50 MG tablet spironolactone (ALDACTONE) 50 MG tablet 02/13/2020 12:00:00 AM EDT 50 mg Oral aborted Take 1 tablet (50 mg tota l) by mouth daily [facility] 90 mcg/actuation 02/13/2020 12:00:00 AM EDT HFA aerosol inha ler 8 INHALE TWO PUFFS BY MOUTH EVERY 4 HOURS NEEDED INHALE TWO PUFFS BY MOUTH EVERY 4 HOURS NEEDED SOLD: 03/19/2020 [facility] Spiriva Respimat Spiriva Respimat 02/13/2020 12:00:00 AM EDT RESPIRATORY completed [facility]ENT ([facility]) 60 ACTUAT Fluticasone propionate 0.5 MG/ ACTUAT / salmeterol 0.05 MG/ACTUAT Dry Powder Inhaler [Advair] Advair Diskus 02/13/2020 12:00:00 AM EDT RESPIRATORY completed [facility] ([facility]) 5 mg 01/03/2020 12:00:00 AM EDT tablet 180 TAKE ONE TABLET BY MOUTH TWICE A DAY TAKE ONE TABLET BY MOUTH TWICE A DAY SOLD: 04/03/2020 [facility] 5 mg 01/03/2020 12:00:00 AM EDT tablet 180 TAKE ONE TABLET BY MOUTH TWICE A DAY TAKE ONE TABLET BY MOUTH TWICE A DAY SOLD: 07/02/2020 [facility] 24 HR Bupropion Hydrochloride 150 MG Ext ended Release Oral Tablet buPROPion (WELLBUTRIN XL) 150 MG 24 hr tablet buPROPion (WELLBUTRIN XL) 150 MG 24 hr tablet 150 mg Oral aborted Take 150 mg by m outh daily [facility] fluticasone (FLONASE) 50 MCG/ACT nasal spray 5258-3116-34 1 {spray} Nasal aborted 1 spray into each nostril get sharp [facility] Insurance Providers Payer name Policy type / Coverage type Policy ID Covered constitution party ID Covered constitution party's relationship to nur Policy Nur Plan Information [employer] [id number] Spo [id number] [employer] [id number] Spo [id number] [id number] MEDICAID [id number] [place] [id number] MED[place]ID [id number] [id number] [facility] MED[facility]ID [id number] xxxxxxxxx [id number] [facility] MEDICAID [id number] [place] [id number] [facility] MEDICAID [id number] [place] [id number] SELF PAY ONLY [id number] SP QVM [id number] BC BS TRIGON [id number] SP [id number] [facility] [id number] SP [id number] [facility] MEDICAID [id number] SP [id number] D MEDICAID M [id number] MEDICAID M [id number] EMEDNY [id number] SP [id number] Problems, Conditions, and Diagnoses Code Display Name Description Problem Type Effective Dates Data Source(s) I42.9 Cardiomyopathy, unspecified Cardiomyopathy, unspecifie d Diagnosis 05/06/2021 01:46:27 PM EST [facility] I48.0 Paroxysmal atrial fibrillation Paroxysmal atrial fibri llation Diagnosis 05/06/2021 01:46:27 PM EST [facility] R06.02 Shortness of breath Shortness of breath Diagnosis 1 02:59:47 PM EDT [facility] G47.33 Obstructive sleep apnea (adult) (pediatr ic) Obstructive sleep apnea (adult) (pediatr Diagnosis 12/31/2020 02:54:33 PM EDT [facility] I25.2 Old myocardial infarction Old myocardial infarction Di agnosis 12/31/2020 02:54:33 PM EDT [facility] Z86.711 Personal history of pulmonary embolism P ersonal history of pulmonary embolism Diagnosis 12/31/2020 02:54:33 PM EDT [facility] F32.9 Major depressive disorder, single episod e, unspecified Major depressive disorder, single episod Diagnosis 12/31/2020 02:54:33 PM EDT [facility] F41.9 Anxiety disorder, unspecified Anxiety disorder, unspec ified Diagnosis 12/31/2020 02:54:33 PM EDT [facility] J44.9 Chronic obstructive pulmonary disease, u nspecified Chronic obstructive pulmonary disease, u Diagnosis 12/31/2020 02:54:33 PM EDT [facility] Z68.39 Body mass index (BMI) 39.0-39.9, adult B corie mass index (BMI) 39.0-39.9, adult Diagnosis 06/06/2020 02:21:02 PM EST [facility] E66.9 Obesity, unspecified Obesity, unspecified Diagnosis 06/06/2020 02:21:02 PM EST [facility] M89.49 [id number] Primary osteoarthritis involving multiple joints Problem 09/17/2020 12:00:00 AM EDT eCW1 ([facility]) R63.0 [id number] Decreased appetite Problem 04/23/2020 12:00: 00 AM EST eCW1 ([facility]) F17.210 [id number] Nicotine dependence, cigarettes, uncompli cated Problem 04/23/2020 12:00:00 AM EST eCW1 ([facility]) J30.89 [id number] Non-seasonal allergic rhinitis, unspecifi ed trigger Problem 04/23/2020 12:00:00 AM EST eCW1 ([facility]) Surgeries/Procedures Procedure Description Date Indications Data Source(s) Spirometry 12/02/2020 12:00:00 AM EDT Kali KNUTSON ([facility], ) Results ID Date Data Source [id number] 05/08/2021 12:16:00 PM EST [facility] FASTING: UNKNOWNReceived: 05/08/2021 at 12:15:00 QPT: [facility], [address], [address] [place], [phone], Maximo Hernandes MD Received: 05/08/2021 at 12:15:00 QPT : [facility], [address], [address] [place], [phone], Maximo Hernandes MD Received: 05/08/2021 at 12:15:00 QPT : [facility], [address], [address] [place], [phone], Maximo Hernandes MD Name Value Range Interpretation Code Description Data Mary rce(s) Supporting Document(s) Glucose [Mass/volume] in Serum or Plasma 125 mg/dL 65-99 Above high normal [facility] Fasting reference intervalFor someone without known diabetes, a glucose valuebetween 100 and 125 mg/dL is consistent withprediabetes and should be confirmed with afollow-up test. Urea nitrogen [Mass/volume] in Serum or Plasma 47 mg/dL 7-25 Above high normal [facility] Creatinine [Mass/volume] in Serum or Plasma 2.37 mg/dL 0.70 -1.33 Above high normal [facility] For patients >49 years of age, the refer ence limitfor Creatinine is approximately 13% higher for peopleidentified as -Canadian. eGFR NON-AFR. ANGOLAN 29 mL/min/1.73m2 > OR = 60 Below low normal [facility] eGFR 33 mL/min/1.73m2 > OR = 60 Below low normal [facility] Urea nitrogen/Creatinine [Mass Ratio] in Serum or Plasma 20 (xochitl c) 6-22 Normal (applies to non-numeric results) [facility] Sodium [Moles/volume] in Serum or Plasma 137 mmol/L 135-146 Normal (applies to non-numeric results) [facility] Potassium [Moles/volume] in Serum or Plasma 6.1 mmol/L 3.5- 5.3 Above high normal [facility] Chloride [Moles/volume] in Serum or Plasma 105 mmol/L 98-11 0 Normal (applies to non-numeric results) [facility] Carbon dioxide, total [Moles/volume] in Serum or Plasma 25 mmol/ L 20-32 Normal (applies to non-numeric results) [facility] Calcium [Mass/volume] in Serum or Plasma 9.0 mg/dL 8.6-10. 3 Normal (applies to non-numeric results) [facility] Protein [Mass/volume] in Serum or Plasma 7.3 g/dL 6.1-8.1 Normal (applies to non-numeric results) [facility] Albumin [Mass/volume] in Serum or Plasma 4.2 g/dL 3.6-5.1 Normal (applies to non-numeric results) [facility] Globulin [Mass/volume] in Serum by calculation 3.1 g/dL (calc) 1 .9-3.7 Normal (applies to non-numeric results) [facility] Albumin/Globulin [Mass Ratio] in Serum or Plasma 1.4 (calc) 1.0-2.5 Normal (applies to non-numeric results) [facility] Bilirubin.total [Mass/volume] in Serum or Plasma 0.5 mg/dL 0.2-1.2 Normal (applies to non-numeric results) [facility] Alkaline phosphatase [Enzymatic activity/volume] in Serum or Plasma 99 U/L 35-144 Normal (applies to non-numeric results) [facility] Aspartate aminotransferase [Enzymatic activity/volume] in Serum or Plasma 10 U/L 10-35 Normal (applies to non-numeric results) [facility] Alanine aminotransferase [Enzymatic activity/volume] in Seru m or Plasma 5 U/L 9-46 Below low normal [facility] ID Date Data Source [id number] 05/08/2021 12:16:00 PM EST [facility] FASTING: UNKNOWNReceived: 05/08/2021 at 12:15:00 QPT: [facility], [address], [address] [place] [address], [phone], Maximo Hernandes MD Received: 05/08/2021 at 12:15:00 QPT : [facility], [address], [address] [place] [address], [phone], Maximo Hernandes MD Received: 05/08/2021 at 12:15:00 QPT : [facility], [address], [address] [place] [address], [phone], Maximo Hernandes MD Name Value Range Interpretation Code Description Data Mary rce(s) Supporting Document(s) Leukocytes [#/volume] in Blood by Automated count 7.7 Thousand/u L 3.8-10.8 Normal (applies to non-numeric results) [facility] Erythrocytes [#/volume] in Blood by Automated count 3.04 Million /uL 4.20-5.80 Below low normal [facility] Hemoglobin [Mass/volume] in Blood 9.5 g/dL 13.2-17.1 Below low nor mal [facility] Hematocrit [Volume Fraction] of Blood by Automated count 29.5 % 38.5-50.0 Below low normal [facility] Erythrocyte mean corpuscular volume [Entitic volume] by Auto mated count 97.0 fL 80.0-100.0 Normal (applies to non-numeric results) [facility] Erythrocyte mean corpuscular hemoglobin [Entitic mass] by Automated count 31.3 pg 27.0-33.0 Normal (applies to non-numeric results) [facility] Erythrocyte mean corpuscular hemoglobin concentration [Mass/volume] by Automated count 32.2 g/dL 32.0-36.0 Normal (applies to non-numeric results) [facility] Erythrocyte distribution width [Ratio] by Automated count 11.7 % 11.0-15.0 Normal (applies to non-numeric results) [facility] Platelets [#/volume] in Blood by Automated count 230 Thousand/uL 140-400 Normal (applies to non-numeric results) [facility] Platelet mean volume [Entitic volume] in Blood by Kai-Shyann 9.8 fL 7.5-12.5 Normal (applies to non-numeric results) [facility] ID Date Data Source [id number] 05/08/2021 12:16:00 PM EST [facility] FASTING: UNKNOWNReceived: 05/08/2021 at 12:15:00 QPT: [facility], [address], [address] [place] [address], [phone], Maximo Hernandes MD Received: 05/08/2021 at 12:15:00 QPT : [facility], [address], [address] [place] [address], [phone], Maximo Hernandes MD Received: 05/08/2021 at 12:15:00 QPT : [facility], [address], [address] [facility], [place], [phone], Maximo Hernandes MD Name Value Range Interpretation Code Description Data Mary rce(s) Supporting Document(s) Thyrotropin [Units/volume] in Serum or Plasma 0.43 mIU/L 0. 40-4.50 Normal (applies to non-numeric results) [facility] Your request to have a duplicate copy faxed has been acknowledged. Queued to: [id number] ID Date Data Source [id number] 03/22/2021 03:03:01 PM EDT [facility] Name Value Range Interpretation Code Description Data Mary rce(s) Supporting Document(s) &PDF [facility] HNJPRv3oAuYVVcWj42/MXLvaOVQgv8NhWMhfAUu0LNqvTIVzF4BqvYjjMRMNHDtYNW3XZKOlLZMyDhBt gU3 [file] AgICAgICAgICAgICAgICAgICAgICAgICAgICAgICAgICAgICAgICAgICAgICANCiAgICAgICAgICAgIC AgICAgICAgICAgICAgICAgICAgICAgICAgICAgICAg ICAgICAgICAgICAgICAgICAgICAgICAgICAgICAgICAgICAgICAgICAgICAgICAgICAgICAgICANCiAg ICAgICAgICAgICAgICAgICAgICAgICAgICAgICAgICAgICAgICAgICAgICAgICAgICAgICAgICAgICAg ICAgICAgICAgICAgICAgICAgICAgICAgICAgICAgIC AgICAgICANCiAgICAgICAgICAgICAgICAgICAgICAgICAgICAgICAgICAgICAgICAgICAgICAgICAgIC AgICAgICAgICAgICAgICAgICAgICAgICAgICAgICAgICAgICAgICAgICAgICAgICANCiAgICAgICAgIC AgICAgICAgICAgICAgICAgICAgICAgICAgICAgICAg ICAgICAgICAgICAgICAgICAgICAgICAgICAgICAgICAgICAgICAgICAgICAgICAgICAgICAgICAgICAN CiAgICAgICAgICAgICAgICAgICAgICAgICAgICAgICAgICAgICAgICAgICAgICAgICAgICAgICAgICAg ICAgICAgICAgICAgICAgICAgICAgICAgICAgICAgIC AgICAgICAgICANCiAgICAgICAgICAgICAgICAgICAgICAgICAgICAgICAgICAgICAgICAgICAgICAgIC AgICAgICAgICAgICAgICAgICAgICAgICAgICAgICAgICAgICAgICAgICAgICAgICAgICANCiAgICAgIC AgICAgICAgICAgICAgICAgICAgICAgICAgICAgICAg ICAgICAgICAgICAgICAgICAgICAgICAgICAgICAgICAgICAgICAgICAgICAgICAgICAgICAgICAgICAg ICANCiAgICAgICAgICAgICAgICAgICAgICAgICAgICAgICAgICAgICAgICAgICAgICAgICAgICAgICAg ICAgICAgICAgICAgICAgICAgICAgICAgICAgICAgIC AgICAgICAgICAgICANCiAgICAgICAgICAgICAgICAgICAgICAgICAgICAgICAgICAgICAgICAgICAgIC AgICAgICAgICAgICAgICAgICAgICAgICAgICAgICAgICAgICAgICAgICAgICAgICAgICAgICANCjw/eH IhK7cfpCFgdkV2I7moTa0LTw7FMV9hr8BxWADyZQei apMfHhrXLdTyTBRiLakOVqr5TXqjLW8JlKQpX3WkG4MzMIpyIL4XQFViHEXhbSDsUBZdBUHwOlC8DPYv KUnjMG8QaDDhEZxoBILyTJWnNxNhTQLcAA0QTWDvT385soPaIa1ECk9MQaNcJQ8bft3LDxCzIBTsCvoX Eww1BRvoXR5NqXTwA7PhiTDcp4nCXhIuU3HNQXPnWV KkHt0CFNIwTcTsTOAuXXrmKC1sSGGsFWZRlQcwziL8RU9PCY0muiUmMN7ENkFuZb9pLj6ZFoXaM3BxK4 PeSYWzRVCOHZjiCZ2VUUPzMTL6EVWaOfLwLCESTgAiJ37nKS0KY2Eww16mKvF5UEVwQjIfYRuiPN56yI uzsfMqaOTrcJafGG2QIa8+DQplbmRvYmoNCnhyZWYN SdJfIsDSWxIdUHZaADLyPOCbOzU4XjEkUh4FRERvSYLoZCDlUiUkOKZuPWAlILuySAOhDKT3ZMqoNUQb UPQiBY8MJkArLRCwCkA1KfQxXZOtVKQtkf5XTMInATQyKBT6UlPpQMYxQDFpSMmnOZRvHBPsVVN2CYEu KLCoLN8PLjMqVFFlQBPgBnWjKXJtRGRyqa9BNEHwLW NeOna1ICPgBXUlPUIkLFunLKMkRDK7MAO3GXZvBJCzWU9EYlBiBWHlQAfaPPhfIOOkNNSmfg4XCFIlVH EuTSHjMbJjZCCiYRLvYHplJMAgTDE7JVa6ZXQjKJWuUG8PVvRsXIDfQIv5QZMkSTEsGVSmek4TDUUiCZ QlKVY0ZCXoJWOmVWRhCKeoYTEiESB7OCVmVXJbHIIs NJ8HNqNlDLHlZOO5NAmqVYGlIDQmdb3FDAUeYPDhKRLsAqMnCERoFJKxJZpqZUQfDBC5BzC0WHMhNKNc TK9XWqEfLZPnGAS4FUtrBOSrDWObik7LJMXrYBBcHAEqVDYkWUOtSDHaRSsjSQLuXDR4MOT6OAYuDHCg BX5FTlDuEJXzDHW8HeWtOCYrYUOxch6LREXsGYVeIg mcQXQxMMZmLAMfJQvcIGOnBNT1BBY8FNIzENBcFW3NHdHvZHHkFUsdLdGbOUEmLGEwxm3CSOJeKFCvQU FuJDDbICKtHSVmHZqgTIEbZUQ7SRM5KOFqQEViVN7GFgTbTVMuZZu5FYsjXLLaLBJcli8XNXPbRHLlHO ZwOnSlQMUnNCSsTSnlWMXrRTP8TZD1EMIqMCFmDK3D DfBnLDGkMIf5PFNtMKBpBVYnrg5KAAQyBJWcTTs5JXGmAYReIOUlKDujTHUaTLFsSCjoLSLwTIXoEE4D RaAsRQAmTgA2OjviEVIhCGMesr1VdSUnzDblra8QZLmPJi7IcAewZRN3JShlRz7ilOWaOtQxYQMWDb9J rtXtYRDlHKOCMUmjLDKvVYY1EVZ2SCquIPCmFWOcOP AhQkmyYWCfAAMvUTF5IpacYcG6HRE7LRlmJYW0MqW4MGMqCGJ7UXS7TRO0HLD1JpMqRrL+YM9tKXd+Pg 8Ir6ScxtK2nxNeWSpxUvVpRK2QPYENS1FFZk== ID Date Data Source [id number] 12/02/2020 01:46:00 PM EDT MEDENT ([facility], ) Name Value Range Interpretation Code Description Data Mary rce(s) Supporting Document(s) PDFReport Laboratory test result MEDENT ([facility], ) FVC-Pre 2.99 L MEDENT ([facility], ) FVC-Pred 4.83 L MEDENT ([facility], ) FVC-%Pred-Pre 61 L MEDENT ([facility], ) Fev1-Pred 3.68 L MEDENT ([facility], ) FVC-LLN 3.90 L MEDENT ([facility]) Fev1-%Pred-Pre 36 L MEDENT ([facility], ) Fev1-Pre 1.34 L MEDENT ([facility], ) Fev6-Pre 2.99 L MEDENT ([facility]) Fev6-Pred 4.62 L MEDENT ([facility]) Fev1-LLN 2.89 L MEDENT ([facility]) Fev6-LLN 3.71 L MEDENT ([facility]) Fev6-%Pred-Pre 64 L MEDENT ([facility], ) Mim5syq-Oxxm 76 % MEDENT ([facility]) Pil8mwb-Htb 45 % MEDENT ([facility]) Fqj5hox-%Pred-Pre 59 % MEDENT ([facility]) Rzm3glj-GUP 66 % MEDENT ([facility]) Ise0saj-Mfbl 96 % MEDENT ([facility]) Kgq9yqw-%Pred-Pre 104 % MEDENT ([facility]) Frz5nch-Uxv 100 % MEDENT ([facility]) FEFMax-Pre 3.62 L/E/sec MEDENT ([facility]) FEFMax-%Pred-Pre 38 L/E/sec MEDENT ([facility]) FEFMax-Pred 9.36 L/E/sec MEDENT ([facility]) FEFMax-LLN 7.04 L/E/sec MEDENT ([facility]) Pgd4908-Xtwi 3.07 L/E/sec MEDENT ([facility]) Tjv0717-Wtx 0.64 L/E/sec MEDENT ([facility]) Kkw8970-XXB 1.47 L/E/sec MEDENT ([facility]) Rpf4308-%Pred-Pre 20 L/E/sec MEDENT ([facility]) Gup9rmi5-Ohy 45 % MEDENT ([facility]) Eso1eew6-Xwxq 79 % MEDENT ([facility]) ExpTime-Pre 6.01 sec MEDENT ([facility]) Bhz3lsx8-%Pred-Pre 56 % MEDENT ([facility]) Ouy7eeh5-WXY 70 % MEDENT ([facility]) ID Date Data Source [id number] 06/03/2020 01:02:00 PM EST MEDENT ([facility]) Name Value Range Interpretation Code Description Data Mary rce(s) Supporting Document(s) PDFReport Laboratory test result MEDENT ([facility]) FVC-%Pred-Pre 66 L MEDENT ([facility]) FVC-Pre 3.23 L MEDENT ([facility]) FVC-Pred 4.83 L MEDENT ([facility]) Fev1-Pred 3.68 L MEDENT ([facility]) FVC-LLN 3.90 L MEDENT ([facility]) Fev1-Pre 1.55 L MEDENT ([facility]) Fev1-%Pred-Pre 42 L MEDENT ([facility]) Fev1-LLN 2.89 L MEDENT ([facility]) Fev6-Pred 4.62 L MEDENT ([facility]) Fev6-%Pred-Pre 69 L MEDENT ([facility]) Fev6-LLN 3.71 L MEDENT ([facility]) Fev6-Pre 3.23 L MEDENT ([facility]) Eqa7mxr-Digd 76 % MEDENT ([facility]) Mob2kol-%Pred-Pre 63 % MEDENT ([facility]) Avo0ahk-Xps 48 % MEDENT ([facility]) Crt5gjy-XHI 66 % MED[facility] ([facility]) Xmc5qkw-Udxw 96 % MED[facility] ([facility]) Aix0ars-Wxi 100 % MEDENT ([facility]) FEFMax-Pred 9.36 L/E/sec MEDENT ([facility]) Mcb1zdr-%Pred-Pre 104 % MEDENT ([facility]) FEFMax-Pre 4.38 L/E/sec MEDENT ([facility]) FEFMax-%Pred-Pre 46 L/E/sec MEDENT ([facility]) FEFMax-LLN 7.04 L/E/sec MEDENT ([facility]) Fwj3518-Nfft 3.07 L/E/sec MED[facility] ([facility]) Qpq5682-Uyt 0.71 L/E/sec [facility] ([facility]) Fqq5194-%Pred-Pre 23 L/E/sec MEDENT ([facility]) Zki6836-VWJ 1.47 L/E/sec MED[facility] ([facility]) ExpTime-Pre 6.03 sec MEDENT ([facility]) Kft7pra4-Mcxn 79 % [facility] ([facility]) Rfi0xuu0-Tmw 48 % [facility] ([facility]) Yie6llx6-%Pred-Pre 60 % MEDENT ([facility]) Bkx8fng2-RBM 70 % MEDENT ([facility]) Procedure Social History Code Duration Value Status Description Data Source(s ) Smoking 01/14/2021 12:00:00 AM EDT Current Smoker completed Curre nt Smoker eCW1 ([facility]) Smoking 01/14/2021 12:00:00 AM EDT Current Smoker completed Curre nt Smoker eCW1 ([facility]) Smoking 01/14/2021 12:00:00 AM EDT Current Smoker completed Curre nt Smoker eCW1 ([facility]) Smoking 01/14/2021 12:00:00 AM EDT Current Smoker completed Curre nt Smoker eCW1 ([facility]) Smoking 01/14/2021 12:00:00 AM EDT Current Smoker completed Curre nt Smoker eCW1 ([facility]) Alcohol intake 01/12/2021 12:00:00 AM EDT Current drinker of al cohol (finding) completed Current drinker of alcohol (finding) [facility] Tobacco use and exposure 01/12/2021 12:00:00 AM EDT Never used co mpleted Never used [facility] Smoking 01/12/2021 12:00:00 AM EDT Current every day smoker co mpleted Current every day smoker [facility] Smoking 09/17/2020 12:00:00 AM EDT Current Smoker completed Curre nt Smoker eCW1 ([facility]) Alcohol intake 06/06/2020 12:00:00 AM EST Yes completed [facility] Smoking 06/06/2020 12:00:00 AM EST Light tobacco smoker comple farnaz Light tobacco smoker [facility] Smoking 04/23/2020 12:00:00 AM EST Current Smoker completed Curre nt Smoker eCW1 ([facility]) Smoking 04/23/2020 12:00:00 AM EST Current Smoker completed Curre nt Smoker eCW1 ([facility]) Smoking 04/23/2020 12:00:00 AM EST Current Smoker completed Curre nt Smoker eCW1 ([facility]) Vital Signs ID Date Data Source [id number] Name Value Range Interpretation Code Description Data Source(s) Heart rate 62 /min 62 /min eCW1 ([facility]) Respiratory rate 22 /min 22 /min eCW1 ([facility]) Body temperature 99.1 [degF] 99.1 [degF] eCW1 ( [facility]) Systolic blood pressure 153 mm[Hg] 153 mm[Hg] e CW1 ([facility]) Diastolic blood pressure 89 mm[Hg] 89 mm[Hg] eCW1 ([facility]) Body weight 297 [lb_av] 297 [lb_av] eCW1 ([facility]) Body height 72 [in_i] 72 [in_i] eCW1 ([facility]) Body mass index (BMI) [Ratio] 40.28 kg/m2 40.28 kg/m2 eCW1 ([facility]) Systolic blood pressure 118 mm[Hg] 118 mm[Hg] [facility] Diastolic blood pressure 64 mm[Hg] 64 mm[Hg] [facility] Heart rate 76 /min 76 /min [facility] Body height 182.9 cm 182.9 cm [facility] Body weight 134.265 kg 134.265 kg [facility] Body mass index (BMI) [Ratio] 40.14 kg/m2 40.14 kg/m2 [facility] Oxygen saturation in Arterial blood by Pulse oximetry 95 % 95 % [facility] Systolic blood pressure 132 mm[Hg] 132 mm[Hg] M EDENT ([facility], ) Diastolic blood pressure 82 mm[Hg] 82 mm[Hg] MEDENT ([facility], ) Heart rate 64 /min 64 /min [facility] ([facility], ) Oxygen saturation in Arterial blood by Pulse oximetry 94 % 94 % [facility] ([facility], ) Body temperature 97.1 [degF] 97.1 [degF] [facility] Body height 70 [in_i] 70 [in_i] MEDENT ([facility], ) 5'10" Body weight 301.00 [lb_av] 301.00 [lb_av] MEDEN T ([facility], ) Body mass index (BMI) [Ratio] 43.2 kg/m2 43.2 k g/m2 MED[facility] ([facility], ) Boaz body weight 166 [lb_av] 166 [lb_av] MEDEN T ([facility], ) Body weight 136.534 kg 136.534 kg [facility] ([facility], ) Body surface area Derived from formula 2.48 m2 2.48 m2 [facility] ([facility], ) Body weight 286 [lb_av] 286 [lb_av] eCW1 ([facility]) Body height 72 [in_i] 72 [in_i] eCW1 ([facility]) Body mass index (BMI) [Ratio] 38.78 kg/m2 38.78 kg/m2 eCW1 ([facility]) Heart rate 64 /min 64 /min eCW1 ([facility]) Respiratory rate 22 /min 22 /min eCW1 ([facility]) Body temperature 97.4 [degF] 97.4 [degF] eCW1 ( [facility]) Systolic blood pressure 134 mm[Hg] 134 mm[Hg] e CW1 ([facility]) Diastolic blood pressure 80 mm[Hg] 80 mm[Hg] eCW1 ([facility]) Systolic blood pressure 110 mm[Hg] 110 mm[Hg] [facility] Diastolic blood pressure 70 mm[Hg] 70 mm[Hg] [facility] Body mass index (BMI) [Ratio] 36.48 kg/m2 36.48 kg/m2 [facility] Oxygen saturation in Arterial blood by Pulse oximetry 98 % 98 % [facility] Heart rate 78 /min 78 /min [facility] Body height 182.9 cm 182.9 cm [facility] Body weight 122.018 kg 122.018 kg [facility] Diastolic blood pressure 72 mm[Hg] 72 mm[Hg] MED[facility] ([facility], ) Body mass index (BMI) [Ratio] 38.7 kg/m2 38.7 k g/m2 [facility] ([facility]) Body temperature 96.8 [degF] 96.8 [degF] [facility] ([facility], ) Body height 70 [in_i] 70 [in_i] [facility] ([facility], ) 5'10" Body weight 270.00 [lb_av] 270.00 [lb_av] MEDEN T ([facility]) Boaz body weight 166 [lb_av] 166 [lb_av] MEDEN T ([facility]) Body weight 122.472 kg 122.472 kg MEDENT ([facility]) Body surface area Derived from formula 2.37 m2 2.37 m2 [facility] ([facility]) Systolic blood pressure 110 mm[Hg] 110 mm[Hg] M EDENT ([facility]) Heart rate 69 /min 69 /min [facility] ([facility]) Oxygen saturation in Arterial blood by Pulse oximetry 933 % 933 % [facility] ([facility]) Body weight [lb_av] eCW1 ([facility]) Body height 72 [in_i] 72 [in_i] eCW1 ([facility]) Body mass index (BMI) [Ratio] 36.89 kg/m2 36.89 kg/m2 eCW1 ([facility]) Heart rate 69 /min 69 /min eCW1 ([facility]) Respiratory rate 22 /min 22 /min eCW1 ([facility]) Body temperature 98.1 [degF] 98.1 [degF] eCW1 ( [facility]) Systolic blood pressure 127 mm[Hg] 127 mm[Hg] e CW1 ([facility]) Diastolic blood pressure 65 mm[Hg] 65 mm[Hg] eCW1 ([facility]) Patient Treatment Plan of Care Planned Activity Planned Date Details Description Data Source (s) tramadol hydrochloride 50 MG Oral Tablet 05/06/2021 12:00:00 AM EST eCW1 ([facility]) tramadol hydrochloride 50 MG Oral Tablet 04/02/2021 12:00:00 AM EDT eCW1 ([facility]) tramadol hydrochloride 50 MG Oral Tablet 03/03/2021 12:00:00 AM EDT eCW1 ([facility]) tramadol hydrochloride 50 MG Oral Tablet 01/27/2021 12:00:00 AM EDT eCW1 ([facility]) Furosemide 40 MG Oral Tablet 12/31/2020 12:00:00 AM EDT [facility] Amiodarone hydrochloride 200 MG Oral Tablet 12/31/2020 12:00:00 AM EDT [facility] albuterol (PROVENTIL HFA;VENTOLIN HFA) 108 (90 Base) M CG/ACT inhaler 12/17/2020 12:00:00 AM EDT [facility] Fluticasone-Salmeterol 232-14 MCG/ACT AEPB 12/06/2020 12:00:00 AM E DT [facility] Metoprolol Tartrate 25 MG Oral Tablet 11/06/2020 12:00:00 AM EDT [facility] apixaban 5 MG Oral Tablet 09/08/2020 12:00:00 AM EDT [facility] Spironolactone 50 MG Oral Tablet 06/06/2020 12:00:00 AM EST [facility] Lisinopril 40 MG Oral Tablet 06/06/2020 12:00:00 AM EST [facility] Lisinopril 40 MG Oral Tablet 06/06/2020 12:00:00 AM EST [facility] 7 ACTUAT umeclidinium 0.0625 MG/ACTUAT Dry Powder Inha ler [Incruse] 04/26/2020 12:00:00 AM EST [facility] 60 ACTUAT Fluticasone propionate 0.5 MG/ ACTUAT / salmeterol 0.05 MG/ACTUAT Dry Powder Inhaler [Advair] 03/17/2020 12:00:00 AM EDT [facility] Furosemide 40 MG Oral Tablet 02/13/2020 12:00:00 AM EDT [facility] Amiodarone hydrochloride 200 MG Oral Tablet 02/13/2020 12:00:00 AM EDT [facility] Spironolactone 50 MG Oral Tablet 02/13/2020 12:00:00 AM EDT [facility] Lisinopril 40 MG Oral Tablet 02/13/2020 12:00:00 AM EDT [facility] fluticasone (FLONASE) 50 MCG/ACT nasal spray [facility] 24 HR Bupropion Hydrochloride 150 MG Extended Release Oral Tablet [facility]
[2021-05-09 02:15] LABS: TROPONIN I < 0.02 NG/ML (< 0.10)
--- OUTSIDE RECORDS SUMMARY | 2021-05-09 02:22 | CCD ---
Author Author [facility] Organization [facility] Address Unknown Phone Unavailable Care Team Providers Care Blindstitch Lapel Padder Name Role Phone Kocan, J Siomara PODIATRIC AIDE Unavailable Unavailable Kocan, J Siomara PODIATRIC AIDE Unavailable Unavailable Kocan, J Siomara PODIATRIC AIDE Unavailable Unavailable Kocan, J Siomara PODIATRIC AIDE Unavailable Unavailable Kocan, J Siomara PODIATRIC AIDE Unavailable Unavailable Kocan, J Siomara PODIATRIC AIDE Unavailable Unavailable Kocan, J Siomara PODIATRIC AIDE Unavailable Unavailable Kocan, J Siomara PODIATRIC AIDE Unavailable Unavailable Kocan, J Siomara PODIATRIC AIDE Unavailable Unavailable Kocan, J Siomara PODIATRIC AIDE Unavailable Unavailable Kocan, J Siomara PODIATRIC AIDE Unavailable Unavailable Kocan, J Siomara PODIATRIC AIDE Unavailable Unavailable Kocan, J Siomara PODIATRIC AIDE Unavailable Unavailable Sloane Neumann MD Unavailable Unavailable [...] Unavailable Sloane Neumann MD Unavailable Unavailable Sloane Nemuann MD Unavailable Unavailable Sloane Neumann MD Unavailable [...] is protected by Article 27-F of the [facility] Public Health law. If you continue you may have access to information: Regarding HIV / AIDS; Provided by facilities licensed or operated by the [facility] Office of Mental Health; or Provided by the [facility] Office for People With Developmental Disabilities. If such information is present, then the following [facility] mandated warning applies: This information has been [...] law may result in a fine or mcc sentence or both. A general authorization for the release of medical or other information is NOT sufficient authorization for further disc losure. Encounters Encounter Providers Location Date Indications Data Source(s ) Outpatient Attender: Siomara Teran RNPReferrer: Jayme YUSUF-SJP.LEDY 05/06/2021 12:00:00 AM EST - 05/06/2021 03:10:18 PM EST [facility] Unknown [address] [facility] [address] 05/06/2021 12:00:00 AM EST eCW1 ([facility]) Unknown [address] [facility] [address] 04/01/2021 12:00:00 AM EDT eCW1 ([facility]) Outpatient Attender: Siomara Teran RNPReferrer: Siomara LEELEDY-SJP.LEDY 03/20/2021 02:59:47 PM EDT - 03/20/2021 03:29:32 PM EDT [facility] Unknown [address] [facility] [place] [address] 03/03/2021 12:00:00 AM EDT eCW1 ([facility]) Unknown [address] [facility] [place] [address] 01/14/2021 12:00:00 AM EDT eCW1 ([facility]) Outpatient [address] [facility] [place] [address] 01/14/2021 12:00:00 AM EDT eCW1 ([facility]) Outpatient Attender: Siomara Teran RNPReferrer: Jayme YUSUF-SJP.LEDY 12/31/2020 12:00:00 AM EDT - 01/01/2021 08:39:50 AM EDT [facility] Outpatient Attender: SANDIP Quan/Macy/Garry/Rubin 12/02/2020 02:00:00 PM EDT [facility] ([facility] [place] [address] [facility] [address] 09/17/2020 12:00:00 AM EDT eCW1 ([facility]) [place] [address] [facility] [place] [address] 09/08/2020 12:00:00 AM EDT eCW1 ([facility]) [place] [address] [facility] [address] 08/21/2020 12:00:00 AM EST eCW1 ([facility]) Outpatient Attender: JULIA COFFMAN MD SJP.LEDY-[email or web address] 12:00:00 AM EST - 06/06/2020 02:46:59 PM EST [facility] [place] [address] [facility] [address] 04/23/2020 12:00:00 AM EST eCW1 ([facility]) Immunizations Vaccine Date Status Description Data Source(s) COVID-19 VACCINE [facility] 28 02/05/2021 12:00:00 AM EDT completed [facility] Vaccine Series Complete: YESThis Data wa s Submitted to [facility] Via [employer]. COVID-19 VACCINE [employer] 28 01/15/2021 12:00:00 AM EDT completed [facility] Vaccine Series Complete: NOThis Data was Submitted to [facility] Via [employer]. Medications Medication Brand Name Start Date Product Form Dose Route Admi nistrative Instructions Pharmacy Instructions Status Indications Reaction Description Data Source(s) tramadol hydrochloride 50 MG Oral Tablet traMADol HCl 50 MG traMADol HCl 50 MG 05/06/2021 12:00:00 AM EST 1.0 {tablet_as_needed} active traMADol HCl 50 MG eCW1 ([facility]) tramadol hydrochloride 50 MG Oral Tablet traMADol HCl 50 MG traMADol HCl 50 MG 04/02/2021 12:00:00 AM EDT 1.0 {tablet_as_needed} active traMADol HCl 50 MG eCW1 ([facility]) tramadol hydrochloride 50 MG Oral Tablet traMADol HCl 50 MG traMADol HCl 50 MG 03/03/2021 12:00:00 AM EDT 1.0 {tablet_as_needed} active traMADol HCl 50 MG eCW1 ([facility]) tramadol hydrochloride 50 MG Oral Tablet traMADol HCl 50 MG traMADol HCl 50 MG 01/27/2021 12:00:00 AM EDT 1.0 {tablet_as_needed} active traMADol HCl 50 MG eCW1 ([facility]) Amiodarone hydrochloride 200 MG Oral Tablet amiodarone (PACERONE) 200 MG tablet amiodarone (PACERONE) 200 MG tablet 12/31/2020 12:00:00 AM EDT active Cardiomyopathy, unspecified typeParoxysmal atrial fibrillation Take 1/2 tablet 3 times a week by mouth. [facility] Cardiomyopathy, unspecified type Paroxysmal atrial fibrillation Furosemide 40 MG Oral Tablet furosemide (LASIX) 40 MG tablet furosemide (LASIX) 40 MG tablet 12/31/2020 12:00:00 AM EDT 40 mg Oral active Cardiomyopathy, unspecified type Take 1 tablet (40 mg total) by mouth bridger ly [facility] Cardiomyopathy, unspecified type albuterol (PROVENTIL HFA;VENTOLIN HFA) 108 (90 Base) M CG/ACT inhaler 9696-4478-21 12/17/2020 12:00:00 AM EDT activ e INHALE TWO PUFFS BY MOUTH EVERY 4 HOURS NEEDED [facility] Fluticasone-Salmeterol 232-14 MCG/ACT AEPB 6550-7838-85 12/06/2020 12:00:00 AM EDT active INHALE ONE PUFF B Y MOUTH TWICE A DAY [facility] Metoprolol Tartrate 25 MG Oral Tablet me toprolol tartrate (LOPRESSOR) 25 MG tablet metoprolol tartrate (LOPRESSOR) 25 MG tablet 11/06/2020 12:0 0:00 AM EDT active TAKE ONE TABLET BY MOUTH TWICE A DAY [facility] apixaban 5 MG Oral Tablet Apixaban (ELIQUIS) 5 MG TABS tablet Apixaban (ELIQUIS) 5 MG TABS tablet 09/08/2020 12:00:00 AM EDT 5 mg Oral a ctive Take 1 tablet (5 mg total) by mouth 2 (two) times a day [facility] Spironolactone 50 MG Oral Tablet spironolactone (ALDAC TONE) 50 MG tablet spironolactone (ALDACTONE) 50 MG tablet 06/06/2020 12:00:00 AM EST 25 mg Oral active Take 0.5 tablets (25 mg t otal) by mouth daily [facility] Lisinopril 40 MG Oral Tablet lisinopril (PRINIVIL,ZEST RIL) 40 MG tablet lisinopril (PRINIVIL,ZESTRIL) 40 MG tablet 06/06/2020 12:00:00 AM EST 40 mg Oral active Take 1 tablet (40 mg total) by mouth daily [facility] Lisinopril 40 MG Oral Tablet lisinopril (PRINIVIL,ZEST RIL) 40 MG tablet lisinopril (PRINIVIL,ZESTRIL) 40 MG tablet 06/06/2020 12:00:00 AM EST 20 mg Oral aborted Take 0.5 tablets (20 mg total) by mouth daily [facility] 90 mcg/actuation 05/13/2020 12:00:00 AM EST [...] ONE PUFF B Y MOUTH EVERY DAY [facility] 7 ACTUAT umeclidinium 0.0625 MG/ACTUAT Dry Powder Inha ler [Incruse] Incruse Ellipta 04/25/2020 12:00:00 AM EST RESPIRATORY active MEDENT ([facility]) Airduo Respiclick 232/14 Airduo Respiclick 232/14 04/25/2020 12:00: 00 AM EST RESPIRATORY active MEDENT ([facility] ) 60 ACTUAT Fluticasone propionate 0.5 MG/ ACTUAT / salmeterol 0.05 MG/ACTUAT Dry Powder Inhaler [Advair] ADVAIR DISKUS 500-50 MCG/DOSE DISKUS ADVAIR DISKUS 500- 50 MCG/DOSE DISKUS 03/17/2020 12:00:00 AM EDT active INHALE ONE PUFF BY MOUTH TWICE A DAY [facility] 2.5 mcg/actuation 02/18/2020 12:00:00 AM EDT [...] tablet (200 mg total) by mouth daily [facility] Furosemide 40 MG Oral Tablet furosemide (LASIX) 40 MG tablet furosemide (LASIX) 40 MG tablet 02/13/2020 12:00:00 AM EDT 40 mg Oral abort ed Take 1 tablet (40 mg total) by mouth 2 (two) times a day [facility] Lisinopril 40 MG Oral Tablet lisinopril (PRINIVIL,ZEST RIL) 40 MG tablet lisinopril (PRINIVIL,ZESTRIL) 40 MG tablet 02/13/2020 12:00:00 AM EDT 40 mg Oral aborted Take 1 tablet (40 mg total) by mouth daily [facility] 90 mcg/actuation 02/13/2020 12:00:00 AM EDT [...] (50 mg tota l) by mouth daily [facility] 90 mcg/actuation 02/13/2020 12:00:00 AM EDT HFA aerosol inha ler 8 INHALE TWO PUFFS BY MOUTH EVERY 4 HOURS NEEDED INHALE TWO PUFFS BY MOUTH EVERY 4 HOURS NEEDED SOLD: 03/19/2020 [facility] Spiriva Respimat Spiriva Respimat 02/13/2020 12:00:00 AM EDT RESPIRATORY completed MEDENT ([facility]) 60 ACTUAT Fluticasone propionate 0.5 MG/ ACTUAT / salmeterol 0.05 MG/ACTUAT Dry Powder Inhaler [Advair] Advair Diskus 02/13/2020 12:00:00 AM EDT RESPIRATORY completed MEDENT ([facility]) 5 mg 01/03/2020 12:00:00 [...] Take 150 mg by m outh daily [facility] fluticasone (FLONASE) 50 MCG/ACT nasal spray 7404-5787-30 1 {spray} Nasal aborted 1 spray into each nostril get sharp [facility] Insurance Providers Payer name Policy type / Coverage type Policy ID Covered alliance party ID Covered alliance party's relationship to nur Policy Nur Plan Information [employer] [id number] Spo QVM [id number] [employer] [id number] Spo QVM [id number] MEDICAID [id number] [place] [id number] MEDICAID [id number] xxxxxxxx [id number] [facility] MEDICAID [id number] xxxxxxxxx [id number] [facility] MEDICAID [id number] Imani [id number] [facility] MEDICAID [id number] [place]mani [id number] SELF PAY ONLY [id number] SP QVM [id number] BC BS TRIGON [id number] SP [id number] [facility] [place] [id number] SP [id number] [facility] MEDICAID [id number] SP [id number] D MEDICAID M [id number] S [id number] MEDICAID M [id number] EMEDNY [id number] SP [id number] Problems, Conditions, and Diagnoses Code Display Name Description Problem Type Effective Dates Data Source(s) I42.9 Cardiomyopathy, unspecified Cardiomyopathy, unspecifie d Diagnosis 05/06/2021 01:46:27 PM EST [facility] I48.0 Paroxysmal atrial fibrillation Paroxysmal atrial fibri llation Diagnosis 05/06/2021 01:46:27 PM EST [facility] R06.02 Shortness of breath Shortness of breath Diagnosis 1 02:59:47 PM EDT [facility] G47.33 Obstructive sleep apnea (adult) (pediatr ic) Obstructive sleep apnea (adult) (pediatr Diagnosis 12/31/2020 02:54:33 PM EDT [facility] I25.2 Old myocardial infarction Old myocardial infarction Di agnosis 12/31/2020 02:54:33 PM EDT [facility] Z86.711 Personal history of pulmonary embolism P ersonal history of pulmonary embolism Diagnosis 12/31/2020 02:54:33 PM EDT [facility] F32.9 Major depressive disorder, single episod e, unspecified Major depressive disorder, single episod Diagnosis 12/31/2020 02:54:33 PM EDT [facility] F41.9 Anxiety disorder, unspecified Anxiety disorder, unspec ified Diagnosis 12/31/2020 02:54:33 PM EDT [facility] J44.9 Chronic obstructive pulmonary disease, u nspecified Chronic obstructive pulmonary disease, u Diagnosis 12/31/2020 02:54:33 PM EDT [facility] Z68.39 Body mass index (BMI) 39.0-39.9, adult B corie mass index (BMI) 39.0-39.9, adult Diagnosis 06/06/2020 02:21:02 PM EST [facility] E66.9 Obesity, unspecified Obesity, unspecified Diagnosis 06/06/2020 02:21:02 PM EST [facility] M89.49 [id number] Primary osteoarthritis involving multiple joints Problem 09/17/2020 12:00:00 AM EDT eCW1 ([facility]) R63.0 [id number] Decreased appetite Problem 04/23/2020 12:00: 00 AM EST eCW1 ([facility]) F17.210 [id number] Nicotine dependence, cigarettes, uncompli cated Problem 04/23/2020 12:00:00 AM EST eCW1 ([facility]) J30.89 [id number] Non-seasonal allergic rhinitis, unspecifi ed trigger Problem 04/23/2020 12:00:00 AM EST eCW1 ([facility]) Surgeries/Procedures Procedure Description Date Indications Data Source(s) Spirometry 12/02/2020 12:00:00 AM EDT Kali KNUTSON ([facility] ) Results ID Date Data Source [id number] 05/08/2021 12:16:00 PM EST [facility] FASTING: UNKNOWNReceived: 05/08/2021 at 12:15:00 QPT: [facility], [address], [address] [place], [address], Maximo Hernandes MD Received: 05/08/2021 at 12:15:00 QPT : [facility], [address], [address] [place], [address], Maximo Hernandes MD Received: 05/08/2021 at 12:15:00 QPT : [facility], [address], [address] [place], [address], Maximo Hernandes MD Name Value Range Interpretation [...] is approximately 13% higher for peopleidentified as -[place]izen [place]. eGFR NON-AFR. [place] 29 mL/min/1.73m2 > OR = 60 Below [...] normal [facility] ID Date Data Source [id number] 05/08/2021 12:16:00 PM EST [facility] FASTING: UNKNOWNReceived: 05/08/2021 at 12:15:00 QPT: [facility], [address], [address] [place] [address], [phone], Maximo Hernandes MD Received: 05/08/2021 at 12:15:00 QPT : [facility], [address], [address] [place] [address], [phone], Maximo Hernandes MD Received: 05/08/2021 at 12:15:00 QPT : [facility], [address], [address] [place] [address], [phone], Maximo Hernandes MD Name Value Range Interpretation [...] results) [facility] ID Date Data Source [id number] 05/08/2021 12:16:00 PM EST [facility] FASTING: UNKNOWNReceived: 05/08/2021 at 12:15:00 QPT: [facility], [address], [address] [place] [address], [phone], Maximo Hernandes MD Received: 05/08/2021 at 12:15:00 QPT : [facility], [address], [address] [place] [address], [phone], Maximo Hernandes MD Received: 05/08/2021 at 12:15:00 QPT : [facility], [address], [address] [facility], [place], [address], Maximo Hernandes MD Name Value Range Interpretation Code Description Data Mary rce(s) Supporting Document(s) Thyrotropin [Units/volume] in Serum or Plasma 0.43 mIU/L 0. 40-4.50 Normal (applies to non-numeric results) [facility] Your request to have a duplicate copy faxed has been acknowledged. Queued to: [id number] ID Date Data Source [id number] 03/22/2021 03:03:01 PM EDT [facility] Name Value Range Interpretation Code Description Data Mary rce(s) Supporting Document(s) &PDF [facility] KYSEPc6zTnXCLwDv37/OUWnwXZLzi5HfPJseOOm2LVwnMBQlQ6JnlEuiCTEYJQpUBO6UPKEpJSKbNaAx gU3 [file] AgICAgICAgICAgICAgICAgICAgICAgICAgICAgICAgICAgICAgICAgICAgICANCiAgICAgICAgICAgIC AgICAgICAgICAgICAgICAgICAgICAgICAgICAgICAg ICAgICAgICAgICAgICAgICAgICAgICAgICAgICAgICAgICAgICAgICAgICAgICAgICAgICAgICANCiAg ICAgICAgICAgICAgICAgICAgICAgICAgICAgICAgICAgICAgICAgICAgICAgICAgICAgICAgICAgICAg ICAgICAgICAgICAgICAgICAgICAgICAgICAgICAgIC AgICAgICANCiAgICAgICAgICAgICAgICAgICAgICAgICAgICAgICAgICAgICAgICAgICAgICAgICAgIC AgICAgICAgICAgICAgICAgICAgICAgICAgICAgICAgICAgICAgICAgICAgICAgICANCiAgICAgICAgIC AgICAgICAgICAgICAgICAgICAgICAgICAgICAgICAg ICAgICAgICAgICAgICAgICAgICAgICAgICAgICAgICAgICAgICAgICAgICAgICAgICAgICAgICAgICAN CiAgICAgICAgICAgICAgICAgICAgICAgICAgICAgICAgICAgICAgICAgICAgICAgICAgICAgICAgICAg ICAgICAgICAgICAgICAgICAgICAgICAgICAgICAgIC AgICAgICAgICANCiAgICAgICAgICAgICAgICAgICAgICAgICAgICAgICAgICAgICAgICAgICAgICAgIC AgICAgICAgICAgICAgICAgICAgICAgICAgICAgICAgICAgICAgICAgICAgICAgICAgICANCiAgICAgIC AgICAgICAgICAgICAgICAgICAgICAgICAgICAgICAg ICAgICAgICAgICAgICAgICAgICAgICAgICAgICAgICAgICAgICAgICAgICAgICAgICAgICAgICAgICAg ICANCiAgICAgICAgICAgICAgICAgICAgICAgICAgICAgICAgICAgICAgICAgICAgICAgICAgICAgICAg ICAgICAgICAgICAgICAgICAgICAgICAgICAgICAgIC AgICAgICAgICAgICANCiAgICAgICAgICAgICAgICAgICAgICAgICAgICAgICAgICAgICAgICAgICAgIC AgICAgICAgICAgICAgICAgICAgICAgICAgICAgICAgICAgICAgICAgICAgICAgICAgICAgICANCjw/eH XsU7ymoQBhciM4R8leKl6OTg9UNV8ls6FvQHIdIXer bsQwRwiXTsRyKMXcIdxCRoy9MJkzVU3SjSJhF4EjC8IaABycTO2AFLPdOKSkeOGqOZHzEZWpYkB3KIIo TRefSV8SgTNrBDzlXKYiGMZaArKqLDQjKO0OVJDoW836afMeDm3IMo2ZFwEuRK6duc7ODbTmXBEfUqaM Tuk9QSgbRU6LoUNjD4EkpRGsm2yJLbWpU9OJNWUpTU YsHo3KGOVrLfHtWDEvOHriUL6yWHWvLSOHiBnqkaL5IW2PZE4ownPaNP2PMeInTa2wEu8DUmReZ3LdX0 VbKHAjIYSMPGppIC1ZIQRoGXS6SNXuLhFoKKSKEjFzV80nHV9JQ7Ooz22yBiF3LFDuAwLdKIjtVT79mQ chyzYjhTQekDgeDO6RIf4+DQplbmRvYmoNCnhyZWYN RfEsWwZTAoVbVFDdJEVgBJPaXzO0ViQwXk5GKFPeCVXeBCDqJrZfYVDnZFJvIVvfOQSwESK0JZuoWLOv VUOsKY5YQfSgOGCvYpV2SwYtHBNoBVUznn9YMQQmOJNzYVB8BkEhSNXrZRJaCPrjPUHxJFTnSOM4UQFw OYZpGK1DLyGbDBQyGYSeNxCcPKKpSSJjkq2JCGKpLM MzEms3TXJwVXXwEEPrXRerTCBrYIS5NWM3JHAtSHGkXA1VBkZwFDSvEFhkMXutKUYpJNKvnx4JFKNyFQ WoOHNmQoDzKXNwJIDvCKvcYOByRLO1NDh6CGZmLFXmZT6PMvRqQSBnJZc1GGJvMNPcYOGoit6YUQVdYM SzKNV0NTRnNLZcRQXjAWoxKFWdRDI2JCFlFNJdUEIm VT8MZkHdEIRoMDP2CLmaYRYcMKDidm5EBXJvWZXtBXQyRqFkEOXuBXTfQTrlAVMsYVI3GfM6XGInNECo BQ5YNjTtKBOmTDN2CDfpLLYkJZNmqv6BWCCqYTIaVYYcQYTwAWMvRRAtNCxcSUChCWO8KCQ5REHjJFHr XP8IYvDgDRKbZSP2EbTtKVVvONKeaf5LVOUwNOQjDf mrTCSwFKOlGVOrCMveRMRwNNK1CIM4EDJyUCCnKJ8TDpQnLLOuWXkzEgDlNMFnYYLxiq8VLSRtTHGhFU IsIFDhLMNpFSPwSVmrVJUqDIT7IGQ1ORPaZZIaRT5XPzLwUFPjVOf0PQusJDQeKLNsos6MXWDbILJlNE CtDiNwCFFaFHGiPVbmUFYmTEP0XRQ7XWEiSTWxZQ2E DeItSQVkSAw8GSIwXTQrUZYzew3HXJLxUDSbFLq1SWPyFLBxDGCeYRrnWBXcAPDaWBbuEAGfMYMvXE0P EwMzNTXpCaC1RdjoMKGcNUDmwl6UfJYreKgtca7KBGbIWh5ScWghVBP3ZRasJl2rlGDhRbQkJKIIVv1C bdZcZBLfGROKDUxwDCKbIUB4AMX2TRacTDRzRAHsNF NrPjftZHUjCECbYLX8RoyjEwR8LVQ5XGplTPE2HmR0BQMmDLN5CAT2FJC9PRL2LoFtGwI+YN5pTRs+Pg 1Lq8FexcG2qaNfIIayKkQfOM1PBNKQV5RCGe== ID Date Data Source [id number] 12/02/2020 01:46:00 PM EDT MEDENT ([facility], ) Name Value Range Interpretation Code Description Data Mary rce(s) Supporting Document(s) PDFReport Laboratory test result MEDENT ([facility], ) FVC-Pre 2.99 L MEDENT ([facility], ) FVC-Pred 4.83 L [facility]ENT ([facility], ) FVC-%Pred-Pre 61 L MEDENT ([facility], ) Fev1-Pred 3.68 L MEDENT ([facility], ) FVC-LLN 3.90 L MEDENT ([facility]) Fev1-%Pred-Pre 36 L MEDENT ([facility], ) Fev1-Pre 1.34 L MEDENT ([facility], ) Fev6-Pre 2.99 L MEDENT ([facility]) Fev6-Pred 4.62 L [facility] ([facility]) Fev1-LLN 2.89 L [facility] ([facility]) Fev6-LLN 3.71 L [facility] ([facility]) Fev6-%Pred-Pre 64 L MEDENT ([facility], ) Pxc9zmg-Hmmz 76 % [facility] ([facility]) Mvp1sff-Obj 45 % [facility] ([facility]) Rxy5bji-%Pred-Pre 59 % [facility] ([facility]) Eol5fin-LFD 66 % [facility] ([facility]) Lhj3mrq-Oeiy 96 % [facility] ([facility]) Ugy4rna-%Pred-Pre 104 % [facility] ([facility]) Nra1qea-Bnj 100 % [facility] ([facility]) FEFMax-Pre 3.62 L/E/sec MEDENT ([facility]) FEFMax-%Pred-Pre 38 L/E/sec MED[facility] ([facility]) FEFMax-Pred 9.36 L/E/sec MEDENT ([facility]) FEFMax-LLN 7.04 L/E/sec MED[facility] ([facility]) Iys5475-Eowh 3.07 L/E/sec MEDENT ([facility]) Lqu6365-Wpw 0.64 L/E/sec [facility] ([facility]) Cil3521-HGD 1.47 L/E/sec [facility] ([facility]) Bls7652-%Pred-Pre 20 L/E/sec MEDENT ([facility]) Cyo0cik0-Wgq 45 % [facility] ([facility]) Vly1blf1-Vgzk 79 % [facility] ([facility]) ExpTime-Pre 6.01 sec [facility] ([facility]) Wdy3ygf4-%Pred-Pre 56 % [facility] ([facility]) Khh9tjj8-SGT 70 % [facility] ([facility]) ID Date Data Source [id number] 06/03/2020 01:02:00 PM EST MED[facility] ([facility]) Name Value Range Interpretation Code Description Data Mary rce(s) Supporting Document(s) PDFReport Laboratory test result MEDENT ([facility]) FVC-%Pred-Pre 66 L [facility] ([facility]) FVC-Pre 3.23 L [facility] ([facility]) FVC-Pred 4.83 L [facility] ([facility]) Fev1-Pred 3.68 L [facility] ([facility]) FVC-LLN 3.90 L [facility] ([facility]) Fev1-Pre 1.55 L [facility] ([facility]) Fev1-%Pred-Pre 42 L [facility] ([facility]) Fev1-LLN 2.89 L [facility] ([facility]) Fev6-Pred 4.62 L [facility] ([facility]) Fev6-%Pred-Pre 69 L [facility] ([facility]) Fev6-LLN 3.71 L [facility] ([facility]) Fev6-Pre 3.23 L [facility] ([facility]) Mep7oqj-Ybfh 76 % [facility] ([facility]) Wig3bon-%Pred-Pre 63 % [facility] ([facility]) Nef1jnr-Mzv 48 % [facility] ([facility]) Auz6cin-MAJ 66 % [facility] ([facility]) Gwz9equ-Ujzm 96 % [facility] ([facility]) Bae7zzp-Onv 100 % [facility] ([facility]) FEFMax-Pred 9.36 L/E/sec MED[facility] ([facility]) Tyn4nue-%Pred-Pre 104 % [facility] ([facility]) FEFMax-Pre 4.38 L/E/sec [facility] ([facility]) FEFMax-%Pred-Pre 46 L/E/sec [facility] ([facility]) FEFMax-LLN 7.04 L/E/sec [facility] ([facility]) Qbi3212-Wfef 3.07 L/E/sec [facility] ([facility]) Twx9872-Zxi 0.71 L/E/sec [facility] ([facility]) Utt7319-%Pred-Pre 23 L/E/sec [facility] ([facility]) Jyi5188-FGA 1.47 L/E/sec [facility] ([facility]) ExpTime-Pre 6.03 sec [facility] ([facility]) Gue7sev4-Vpkg 79 % [facility] ([facility]) Yfx9yjp0-Tzi 48 % [facility] ([facility]) Gus0dpc7-%Pred-Pre 60 % [facility] ([facility]) Bwu5max1-QDI 70 % [facility] ([facility]) Procedure Social History Code Duration Value Status Description Data Source(s ) Smoking 01/14/2021 12:00:00 AM EDT Current Smoker completed Curre nt Smoker eCW1 ([facility]) Smoking 01/14/2021 12:00:00 AM EDT Current Smoker completed Curre nt Smoker eCW1 ([facility]) Smoking 01/14/2021 12:00:00 AM EDT Current Smoker completed Curre nt Smoker eCW1 ([facility]) Smoking 01/14/2021 12:00:00 AM EDT Current Smoker completed Curre nt Smoker eCW1 ([facility]) Smoking 01/14/2021 12:00:00 AM EDT Current Smoker completed Curre nt Smoker eCW1 ([facility]) Alcohol intake 01/12/2021 12:00:00 AM EDT Current drinker of al cohol (finding) completed Current drinker of alcohol (finding) [facility] Tobacco use and exposure 01/12/2021 12:00:00 AM EDT Never used co mpleted Never used [facility] Smoking 01/12/2021 12:00:00 AM EDT Current every day smoker co mpleted Current every day smoker [facility] Smoking 09/17/2020 12:00:00 AM EDT Current Smoker completed Curre nt Smoker eCW1 ([facility]) Alcohol intake 06/06/2020 12:00:00 AM EST Yes completed [facility] Smoking 06/06/2020 12:00:00 AM EST Light tobacco smoker comple farnaz Light tobacco smoker [facility] Smoking 04/23/2020 12:00:00 AM EST Current Smoker completed Curre nt Smoker eCW1 ([facility]) Smoking 04/23/2020 12:00:00 AM EST Current Smoker completed Curre nt Smoker eCW1 ([facility]) Smoking 04/23/2020 12:00:00 AM EST Current Smoker completed Curre nt Smoker eCW1 ([facility]) Vital Signs ID Date Data Source UNK Name Value Range Interpretation Code Description Data Source(s) Heart rate 62 /min 62 /min eCW1 ([facility]) Body weight 297 [lb_av] 297 [lb_av] eCW1 ([facility]) Body height 72 [in_i] 72 [in_i] eCW1 ([facility]) Body mass index (BMI) [Ratio] 40.28 kg/m2 40.28 kg/m2 W1 ([facility]) Respiratory rate 22 /min 22 /min eCW1 ([facility]) Body temperature 99.1 [degF] 99.1 [degF] eCW1 ( [facility]) Systolic blood pressure 153 mm[Hg] 153 mm[Hg] e CW1 ([facility]) Diastolic blood pressure 89 mm[Hg] 89 mm[Hg] eCW1 ([facility]) Systolic blood pressure 118 mm[Hg] 118 mm[Hg] [facility] Diastolic blood pressure 64 mm[Hg] 64 mm[Hg] [facility] Heart rate 76 /min 76 /min [facility] Body height 182.9 cm 182.9 cm [facility] Body weight 134.265 kg 134.265 kg [facility] Body mass index (BMI) [Ratio] 40.14 kg/m2 40.14 kg/m2 [facility] Oxygen saturation in Arterial blood by Pulse oximetry 95 % 95 % [facility] Systolic blood pressure 132 mm[Hg] 132 mm[Hg] M EDENT ([facility], ) Diastolic blood pressure 82 mm[Hg] 82 mm[Hg] MEDENT ([facility], ) Heart rate 64 /min 64 /min [facility], ) Oxygen saturation in Arterial blood by Pulse oximetry 94 % 94 % [facility] ([facility], ) Body temperature 97.1 [degF] 97.1 [degF] MEDENT ([facility], ) Body height 70 [in_i] 70 [in_i] MEDENT ([facility], ) 5'10" Body weight 301.00 [lb_av] 301.00 [lb_av] MEDEN T ([facility], ) Body mass index (BMI) [Ratio] 43.2 kg/m2 43.2 k g/m[facility] [place] body weight 166 [lb_av] 166 [lb_av] MEDEN T ([facility], ) Body weight 136.534 kg 136.534 kg MEDENT ([facility], ) Body surface area Derived from formula 2.48 m2 2.48 m2 MEDENT ([facility], ) Body weight 286 [lb_av] 286 [lb_av] eCW1 ([facility]) Body height 72 [in_i] 72 [in_i] eCW1 ([facility]) Body mass index (BMI) [Ratio] 38.78 kg/m2 38.78 kg/m2 eCW1 ([facility]) Heart rate 64 /min 64 /min eCW1 ([facility]) Respiratory rate 22 /min 22 /min eCW1 ([facility]) Body temperature 97.4 [degF] 97.4 [degF] eCW1 ( [facility]) Systolic blood pressure 134 mm[Hg] 134 mm[Hg] e CW1 ([facility]) Diastolic blood pressure 80 mm[Hg] 80 mm[Hg] eCW1 ([facility]) Systolic blood pressure 110 mm[Hg] 110 mm[Hg] [facility] Diastolic blood pressure 70 mm[Hg] 70 mm[Hg] [facility] Body mass index (BMI) [Ratio] 36.48 kg/m2 36.48 kg/m2 [facility] Oxygen saturation in Arterial blood by Pulse oximetry 98 % 98 % [facility] Heart rate 78 /min 78 /min [facility] Body height 182.9 cm 182.9 cm [facility] Body weight 122.018 kg 122.018 kg [facility] Body mass index (BMI) [Ratio] 38.7 kg/m2 38.7 k g/m2 MEDENT ([facility], ) Diastolic blood pressure 72 mm[Hg] 72 mm[Hg] MEDENT ([facility], ) Systolic blood pressure 110 mm[Hg] 110 mm[Hg] M EDENT ([facility], ) Heart rate 69 /min 69 /min MEDENT ([facility], ) Oxygen saturation in Arterial blood by Pulse oximetry 933 % 933 % MEDENT ([facility]) Body temperature 96.8 [degF] 96.8 [degF] [facility] ([facility]) Body height 70 [in_i] 70 [in_i] [facility] ([facility]) 5'10" Body weight 270.00 [lb_av] 270.00 [lb_av] MEDEN T ([facility]) [place] body weight 166 [lb_av] 166 [lb_av] MEDEN T ([facility]) Body weight 122.472 kg 122.472 kg [facility] ([facility]) Body surface area Derived from formula 2.37 m2 2.37 m2 [facility] ([facility]) Body weight [lb_av] eCW1 ([facility]) Body height 72 [in_i] 72 [in_i] eCW1 ([facility]) Body mass index (BMI) [Ratio] 36.89 kg/m2 36.89 kg/m2 eCW1 ([facility]) Heart rate 69 /min 69 /min eCW1 ([facility]) Respiratory rate 22 /min 22 /min eCW1 ([facility]) Body temperature 98.1 [degF] 98.1 [degF] eCW1 ( [facility]) Systolic blood pressure 127 mm[Hg] 127 mm[Hg] e CW1 ([facility]) Diastolic blood pressure 65 mm[Hg] 65 mm[Hg] eCW1 ([facility]) Patient Treatment Plan of Care Planned Activity Planned Date Details Description Data Source (s) tramadol hydrochloride 50 MG Oral Tablet 05/06/2021 12:00:00 AM EST eCW1 ([facility]) tramadol hydrochloride 50 MG Oral Tablet 04/02/2021 12:00:00 AM EDT eCW1 ([facility]) tramadol hydrochloride 50 MG Oral Tablet 03/03/2021 12:00:00 AM EDT eCW1 ([facility]) tramadol hydrochloride 50 MG Oral Tablet 01/27/2021 12:00:00 AM EDT eCW1 ([facility]) Furosemide 40 MG Oral Tablet 12/31/2020 12:00:00 AM EDT [facility] Amiodarone hydrochloride 200 MG Oral Tablet 12/31/2020 12:00:00 AM EDT [facility] albuterol (PROVENTIL HFA;VENTOLIN HFA) 108 (90 Base) M CG/ACT inhaler 12/17/2020 12:00:00 AM EDT [facility] Fluticasone-Salmeterol 232-14 MCG/ACT AEPB 12/06/2020 12:00:00 AM E DT [facility] Metoprolol Tartrate 25 MG Oral Tablet 11/06/2020 12:00:00 AM EDT [facility] apixaban 5 MG Oral Tablet 09/08/2020 12:00:00 AM EDT [facility] Spironolactone 50 MG Oral Tablet 06/06/2020 12:00:00 AM EST [facility] Lisinopril 40 MG Oral Tablet 06/06/2020 12:00:00 AM EST [facility] Lisinopril 40 MG Oral Tablet 06/06/2020 12:00:00 AM EST [facility] 7 ACTUAT umeclidinium 0.0625 MG/ACTUAT Dry Powder Inha ler [Incruse] 04/26/2020 12:00:00 AM EST [facility] 60 ACTUAT Fluticasone propionate 0.5 MG/ ACTUAT / salmeterol 0.05 MG/ACTUAT Dry Powder Inhaler [Advair] 03/17/2020 12:00:00 AM EDT [facility] Furosemide 40 MG Oral Tablet 02/13/2020 12:00:00 AM EDT [facility] Amiodarone hydrochloride 200 MG Oral Tablet 02/13/2020 12:00:00 AM EDT [facility] Spironolactone 50 MG Oral Tablet 02/13/2020 12:00:00 AM EDT [facility] Lisinopril 40 MG Oral Tablet 02/13/2020 12:00:00 AM EDT [facility] fluticasone (FLONASE) 50 MCG/ACT nasal spray [facility] 24 HR Bupropion Hydrochloride 150 MG Extended Release Oral Tablet [facility]
[2021-05-09] MEDS ORDERED: INCR1INH INH (02:26)
[2021-05-09] MEDS ORDERED: ATOR40TA75 PO (02:26)
[2021-05-09] MEDS ORDERED: LISI40TA4 PO (02:26)
[2021-05-09] MEDS ORDERED: ELIQ5TAB PO (02:26)
[2021-05-09] MEDS ORDERED: METO1TAB87 PO (02:26)
[2021-05-09] MEDS ORDERED: ALBU8.5H INH (02:26)
[2021-05-09] MEDS ORDERED: SPIR50TA4 PO (02:26)
[2021-05-09] MEDS ORDERED: FURO40TA2 PO ×2 (02:26→16:39)
--- NOTE | 2021-05-09 02:29 | REPVR ---
PROCEDURE INFORMATION: Exam: US Retroperitoneal Limited, Kidneys Exam date and time: 05/09/21 (1:06am) Age: 61 years old Clinical indication: WILSON. Abnormal lab tests. TECHNIQUE: Imaging protocol: Real-time ultrasound of the retroperitoneum with image documentation. Examination was focused on the kidneys. COMPARISON: CT CHEST of 11/21/18 FINDINGS: Right kidney: No stones. No hydronephrosis. Measures 11.4 cm in length. Left kidney: No stones. No hydronephrosis. Measures 13.1 cm in length. Left lower pole cyst (2.3 x 2.4 x 2.2 cm size). Urinary bladder: Not optimally distended. No obvious pathology. IMPRESSION: No acute findings. Each kidney is normal in size. No hydronephrosis. Left lower renal pole cyst (2.3 cm size). Electronically signed by: Lori Oscar On 05/09/2021 02:28:58 AM
[2021-05-09] MEDS ORDERED: TRAM50TA2 PO (02:30)
[2021-05-09] MEDS ORDERED: FLUT1INH3 PO (02:30)
[2021-05-09] MEDS ORDERED: ALBU83IN NEB (02:30)
[2021-05-09] MEDS ORDERED: HOME MED LIST COMPLETE! XX SCH (02:35)
[2021-05-09] MEDS ORDERED: ACETAMINOPHEN TAB 650MG DOSE (2X325MG) PO PRN (02:50)
[2021-05-09 02:57] LABS: PHOSPHORUS LEVEL 3.3 MG/DL (2.5-4.9)
[2021-05-09] MEDS ORDERED: ALBUTEROL 90 MCG/ACT 8GM HFA INHALER INH PRN (03:15)
[2021-05-09] MEDS ORDERED: ALBUTEROL SULFATE 2.5 MG/0.5 ML INH NEB SOLN NEB PRN (03:15)
[2021-05-09] MEDS ORDERED: NS 1,000 ML IV SCH ×2 (03:50→10:50)
--- NOTE | 2021-05-09 03:50 | HPEPDOC ---
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 Patient reports that he is doing well at this time. He denies any fevers, chills, night sweats. Patient reports that he has myalgias at baseline from "normal wear and tear." Patient reports that he has been having trouble initiating urine stream for the past year. He associates the beginning of this symptom since his COVID-19 hospitalization. He reports that he was given an experimental drug during his COVID-19 hospitalization that broke up multiple clots. He reported that he went into renal failure during that hospitalization which was attributed to the use of the experimental drug. Patient cannot recall what drug was administered, however, he does report that he was hospitalized at the [facility] in [facility]. Patient reports that his renal function returned to baseline after hospitalization. Patient denies any sick contacts at this time. However, he does report that approximately 3 weeks ago he and everyone in his family developed flulike symptoms including cough and runny nose. Patient reports some heart palpitations after he took medication for his cough. Patient denies any runny nose at this time. Patient states that he has a little bit of a cough but no fevers, nausea, vomiting, diarrhea, constipation at this time. REVIEW OF SYSTEMS: General: Patient denies fevers, chills, night sweats. Reports unintentional 15 pound weight loss in the past couple months. HEENT: Patient denies headaches Cardiovascular: Patient denies chest pain Respiratory: Patient denies shortness of breath, reports slight cough GI: Patient denies abdominal pain, nausea, vomiting, diarrhea. Denies melena/hematochezia. : Patient denies increased frequency or pain with urination. Denies hematuria Extremities: Patient denies swelling or pain in extremities Neurological: Patient denies numbness or tingling in legs Skin: Patient denies any new rashes or lesions. Hematologic: Patient denies any easy bruising. Lymphatic: Patient denies any lumps or bumps in neck, axilla, or groin PAST MEDICAL/SURGICAL HISTORY: Atrial fibrillation History of PE History of 4 MIs, catheterization done, but no stent or CABG placement needed COPD dependent on 3 L oxygen at home VIOLET compliant with CPAP History of severe hospitalization secondary to COVID-19 SOCIAL HISTORY:He is & resides with , ganesh, ganesh's fianc, and grandson. Tobacco use: Current smoker: 5 to 7 cigarettes/day for the past year, 45-pack- year history ETOH: Occasionally, last drink January 2021 Drug use: Patient reports marijuana use daily in the form of edibles. Patient reports he eats 1-2 cookies per day that he makes himself. His Marie is his healthcare proxy.[phone]. He would not like to be resuscitated and/or intubated. FAMILY HISTORY: Patient reports that heart disease runs in his family. Fatherdeceased at 70 years, diagnosed with unspecified heart disease. Mother: , in her 72shypertension diagnosed with unspecified heart disease ALLERGIES: Please see below. HOME MEDICATIONS: Please see below. PHYSICAL EXAMINATION: Vital Signs Date Time Temp Pulse Resp B/P (MAP) Pulse Ox O2 Delivery O2 Flow Rate FiO2 05/08/21 17:27 98.2 80 18 126/67 (86) 96 Room Air 05/09/21 02:31 3.0 GENERAL APPEARANCE: Patient is sitting up in his gurney with his legs off the bed. Patient is in no acute distress. Patient is alert and oriented x4. HEENT: Normocephalic atraumatic, PERRLA, EOMI, no rhinorrhea, no tonsillar erythema, mucous membranes moist. CARDIOVASCULAR: Distant heart sounds, no murmurs rubs or gallops appreciated. LUNGS: Clear to auscultation bilaterally. ABDOMEN: Soft, nontender, nondistended, no hepatosplenomegaly appreciated. MUSCULOSKELETAL: Upper and lower extremity strength plus 5 out of 5. EXTREMITIES: No clubbing, no edema, radial and pedal pulses intact +2. NEUROLOGICAL: No focal deficits, cranial nerves II to XII intact. PSYCHIATRIC: Affect full and open, alert and oriented x4. LABORATORY DATA: 05/08/21 17:57 05/08/21 23:55 IMAGING: Renal ultrasound, 05/09/2021No acute findings. Each kidney is normal in size. No hydronephrosis. Left lower renal pole cyst (2.3 cm size). MICROBIOLOGY: Please see below. ASSESSMENT/PLAN: #Acute Renal Failure, likely due to dehydration Patient's baseline creatinine is approximately one, creatinine on presentation was approximately 2.07, creatinine is thus more than 1.5 times baseline 1 L saline bolus was administered in the ED Continue maintenance fluid with normal saline Continue to monitor daily BMP for creatinine level No acute findings on renal ultrasound Squamous epithelial cells and hyaline casts present in urine Hold renally toxic medications, including patient's home furosemide, spironolactone, tramadol, and lisinopril at this time #Hyperkalemia Patient had potassium level of 5.5 on presentation to ED Patient's EKG shows no acute abnormalities and patient denies any heart palpitations, shortness of breath, chest pain at this time Continue to monitor BMP for K level #Anemia Patient's hemoglobin level is 10.7 in the ED Patient denies a history of anemia, and there is currently no source of bleed Occult stool specimen has been ordered In setting of dehydration, hematocrit should be elevated, patient's new onset anemia needs to be investigated further, so please follow-up on occult stool #History of COPD Continue home albuterol inhaler 2 puffs as needed every 4 hours Continue home albuterol nebulizer 4 times daily as needed for shortness of breath Patient uses Incruse Ellipta at home, this has been substituted by Spiriva in the hospital Continue patient on oxygen therapy 3 L (patient's home oxygen therapy) #Coronary artery disease Continue home atorvastatin 40 mg every night Hold home furosemide 40 mg due to WILSON Hold lisinopril 40 mg due to WILSON Stop home spironolactone daily #Atrial fibrillation Continue home metoprolol 25 mg daily Continue home apixaban 5 mg twice daily #Hypertension Hold home spironolactone 50 mg daily Continue home metoprolol 25 mg daily If patient becomes hypertensive, consider amlodipine administration. #VIOLET compliant on CPAP Patient may use own CPAP machine, please call in the a.m. so she can bring it in. #Chronic pain Hold home tramadol Administer acetaminophen for pain as needed VTE prophylaxis: Continue home apixaban 5 mg twice daily. Teds and sequentials. Consider holding apixaban if patient's hemoglobin level continues to drop and/or in the setting of finding source of bleed. Disposition: Admit patient to [facility], expect at least 2 midnight stay. Home Medications Scheduled Apixaban (Eliquis) 5 Mg Tablet, 5 MG PO BID Atorvastatin Calcium (Atorvastatin Calcium) 40 Mg Tablet, 40 MG PO QHS Fluticasone Propion/Salmeterol (Fluticasone-Salmeterol 232-14) 1 Each Ae r.pow.ba, 1 PUFF PO BID Furosemide (Furosemide) 40 Mg Tablet, 40 MG PO DAILY Lisinopril (Lisinopril) 40 Mg Tablet, 40 MG PO QHS Metoprolol Tartrate (Metoprolol Tartrate) 25 Mg Tablet, 25 MG PO BID Spironolactone (Spironolactone) 50 Mg Tablet, 50 MG PO DAILY Umeclidinium [place] (Incruse Ellipta) 62.5 Mcg Blst.w.dev, 1 PUFF INH DAILY Scheduled PRN Albuterol Sulf (Albuterol Sulfate) 2.5 Mg/3 Ml Vial.neb, 1 VIAL NEB QID PRN for SHORTNESS OF BREATH Albuterol Sulfate (Albuterol Sulfate Hfa) 8.5 Gm Hfa.aer.ad, 2 PUFFS INH Q4H PRN for SHORTNESS OF BREATH Tramadol HCl (Tramadol HCl) 50 Mg Tablet, 50 MG PO BID PRN for MODERATE-SEVERE PAIN Allergies Coded Allergies: No Known Drug Allergies (Verified Allergy, Unknown, 05/08/21) A-FIB/CHADSVASC A-FIB History Current/History of A-Fib/PAF?: Yes Current PO Anticoag Therapy: Yes GME ATTESTATION GME ATTESTATION My faculty preceptor for this patient encounter was physically present during the encounter and was fully available. All aspects of the patient interview, examination, medical decision making process, and medical care plan development were reviewed and approved by the faculty preceptor. The faculty preceptor is aware and concurs with the plan as stated in the body of this note and will attest to such by his/her cosignature. ATTENDING NOTE Time of service 445AM I examined the patient, discussed the case with and agree with the findings as documented. Chinmay Salomon DO May 09, 2021 03:50 JAVAD DE LOS SANTOS MD May 09, 2021 06:52
[2021-05-09 04:46] LABS: CALCIUM LEVEL 8.2 MG/DL (8.5-10.1); CREATININE FOR GFR 1.65 MG/DL (0.70-1.30); GLOMERULAR FILTRATION RATE 45.7 (>56); POTASSIUM SERUM 5.4 MEQ/L (3.5-5.1)
[2021-05-09 04:56] LABS: RSV AMPLIFICATION NEGATIVE (NEGATIVE)
[2021-05-09] MEDS ORDERED: PATIROMER SORBITEX CALCIUM 8.4 GM POWDER PACKET (VELTASSA) PO ONE (07:10)
[2021-05-09 07:18] LABS: BASO % 0.6 % (0.0-1.0); EOS # 0.4 10^3/uL (0.0-0.5); EOS % 7.1 % (0.0-3.0); HEMATOCRIT 28.7 % (42.0-52.0); HEMOGLOBIN 8.8 g/dl (13.5-17.5); LYMPH # 1.8 10^3/uL (1.5-5.0); LYMPH % 28.9 % (24.0-44.0); MEAN CORPUSCULAR HEMOGLOBIN 31.2 pg (27.0-33.0); MEAN CORPUSCULAR HGB CONC 30.7 g/dl (32.0-36.5); MEAN CORPUSCULAR VOLUME 101.8 fl (80.0-96.0); MONO # 0.4 10^3/uL (0.0-0.8); NEUTROPHILS # 3.5 10^3/uL (1.5-8.5); NEUTROPHILS % 56.9 % (36.0-66.0); PLATELET COUNT, AUTOMATED 186 10^3/uL (150-450); RED BLOOD COUNT 2.82 10^6/uL (4.30-6.10); WHITE BLOOD COUNT 6.2 10^3/uL (4.0-10.0)
[2021-05-09 07:38] LABS: CALCIUM LEVEL 8.3 MG/DL (8.5-10.1); CREATININE FOR GFR 1.54 MG/DL (0.70-1.30); GLOMERULAR FILTRATION RATE 49.5 (>56); POTASSIUM SERUM 5.4 MEQ/L (3.5-5.1)
[2021-05-09 07:42] LABS: PERCENT SATURATION 22.9 % (19.7-50.0)
[2021-05-09 08:00] VITALS: BP 127/77
[2021-05-09] MEDS ORDERED: TIOTROPIUM INHALER/CAPSULE (SPIRIVA) INH SCH (08:00)
[2021-05-09] MEDS ORDERED: ADVAIR HFA 230/21MCG INHALER INH SCH (08:00)
--- NOTE | 2021-05-09 08:12 | ECGEPIP ---
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
[2021-05-09] MEDS ORDERED: SPIRONOLACTONE 50 MG TAB PO SCH (09:00)
[2021-05-09] MEDS ORDERED: FUROSEMIDE 40 MG TAB PO SCH (09:00)
[2021-05-09] MEDS ORDERED: APIXABAN 5 MG TAB (ELIQUIS) PO SCH (09:00)
[2021-05-09] MEDS ORDERED: ENTER DRUG NAME HERE (PATIENT'S OWN MED) INH SCH (09:00)
[2021-05-09] MEDS ORDERED: METOPROLOL TART 25 MG TABLET PO SCH (09:00)
[2021-05-09 09:12] VITALS: BP 127/77
--- NOTE | 2021-05-09 10:29 | IPNPDOC ---
Text Note Date of Service The patient was seen on 05/09/21. VS,Mahsa, I+O VS, Kvngbone, I+O Laboratory Tests 05/08/21 17:57 05/08/21 23:55 05/09/21 03:28 05/09/21 07:01 Vital Signs Date Time Temp Pulse Resp B/P (MAP) Pulse Ox O2 Delivery O2 Flow Rate FiO2 05/09/21 09:12 72 127/77 05/09/21 08:00 98.1 18 95 Room Air 05/09/21 07:37 3.0 RAMY HOLBROOK M.D. May 09, 2021 10:29
[2021-05-09] MEDS ORDERED: FUROSEMIDE 40MG/4ML VIAL (J1940) IV ONE (10:45)
[2021-05-09 14:58] LABS: HEMATOCRIT 30.8 % (42.0-52.0); HEMOGLOBIN 9.7 g/dl (13.5-17.5); MEAN CORPUSCULAR HEMOGLOBIN 31.7 pg (27.0-33.0); MEAN CORPUSCULAR HGB CONC 31.5 g/dl (32.0-36.5); MEAN CORPUSCULAR VOLUME 100.7 fl (80.0-96.0); PLATELET COUNT, AUTOMATED 215 10^3/uL (150-450); RED BLOOD COUNT 3.06 10^6/uL (4.30-6.10); WHITE BLOOD COUNT 7.5 10^3/uL (4.0-10.0)
[2021-05-09 15:33] LABS: CALCIUM LEVEL 8.9 MG/DL (8.5-10.1); CREATININE FOR GFR 1.65 MG/DL (0.70-1.30); GLOMERULAR FILTRATION RATE 45.7 (>56); MAGNESIUM LEVEL 1.8 MG/DL (1.8-2.4); PHOSPHORUS LEVEL 2.6 MG/DL (2.5-4.9)
--- NOTE | 2021-05-09 16:38 | DS.PDOC ---
Discharge Summary General Date of Admission May 09, 2021 at 02:00 Date of Discharge 05/09/21 Discharge Summary DISCHARGE DIAGNOSES: 1. Electrolyte abnormality 2. Chronic kidney disease 3. Macrocytic anemia COMPLICATIONS/CHIEF COMPLAINT: WILSON. HOSPITAL COURSE Mr. 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 He had no acute complaints. He was noted to be hypokalemic and have elevated creatinine. He reported he was drinking a lot of orange juice due to his recent cold-like symptoms. He tested negative for COVID-19. He was evaluated by the nephrology team and received Veltassa as well as furosemide which helped lower his potassium. At the time of discharge his creatinine was 1.65. It is suspected that he has underlying ch ronic kidney disease and he was asked to have repeat blood work done within a week to renal function as well as electrolytes are acceptable. He was asked to follow-up with the nephrology team within 5 days of discharge. At the time of discharge patient was hemodynamically stable and had no complaints. As per nephrology recommendations his furosemide was increased from 40 mg daily to 40 mg twice daily; and to resume his lisinopril and Aldactone. It was noted that he has macrocytic anemia at the time of discharge vitamin B12 levels were pending. He he was instructed to follow this up with his primary care physician. Patient encouraged to obtain all imaging results for his reference and for appropriate follow-up that may be required. DISCHARGE MEDICATIONS: Please see below. ALLERGIES: Please see below. PHYSICAL EXAMINATION ON DISCHARGE: VITAL SIGNS: Please see below. General: Lying in bed, no acute distress Head/Neck/Throat: Trachea midline, mucous membranes moist Eyes: Sclera anicteric, PERRLA Thorax: Normal respiratory effort on room air, lungs clear to auscultation bilaterally, no wheezes/rales/rhonchi Cardiovascular: Normal rate, regular rhythm, normal S1, S2; no S3, S4, rubs/ gallops/murmurs Abdomen: Bowel sounds present, soft/nontender/nondistended Genitourinary: No CVA tenderness, no Cadet in place Musculoskeletal: Moving all extremities, no edema Skin: Warm, dry Neurologic: AAOx3, speech fluent and goal-directed, no focal deficits, grossly intact LABORATORY DATA: Please see below. IMAGING: RENAL US FINDINGS: Right kidney: No stones. No hydronephrosis. Measures 11.4 cm in length. Left kidney: No stones. No hydronephrosis. Measures 13.1 cm in length. Left lower pole cyst (2.3 x 2.4 x 2.2 cm size). Urinary bladder: Not optimally distended. No obvious pathology. IMPRESSION: No acute findings. Each kidney is normal in size. No hydronephrosis. Left lower renal pole cyst (2.3 cm size). PROGNOSIS: Good ACTIVITY: As tolerated DIET: Renal diet DISCHARGE INSTRUCTIONS: 1. Follow-up with nephrology DISCHARGE CONDITION: Stable. TIME SPENT ON DISCHARGE: 25 minutes. Vital Signs/I&Os Vital Signs Date Time Temp Pulse Resp B/P (MAP) Pulse Ox O2 Delivery O2 Flow Rate FiO2 05/09/21 09:12 72 127/77 05/09/21 08:00 98.1 18 95 Room Air 05/09/21 07:37 3.0 Laboratory Data Labs 24H Laboratory Tests 2 05/08/21 17:57: Anion Gap 4L, Glomerular Filtration Rate 35.4L, Calcium Level 9.1 05/08/21 23:55: Immature Granulocyte % (Auto) 0.4, Neutrophils (%) (Auto) 55.4, Lymphocytes (%) (Auto) 30.9, Monocytes (%) (Auto) 5.1, Eosinophils (%) (Auto) 7.5H, Basophils (%) (Auto) 0.7, Neutrophils # (Auto) 4.6, Lymphocytes # (Auto) 2.6, Monocytes # (Auto) 0.4, Eosinophils # (Auto) 0.6H, Basophils # (Auto) 0.1, Nucleated Red Blood Cells % (auto) 0.0, Estimated Mean Plasma Glucose 120H, Hemoglobin A1c 5.8, Phosphorus Level 3.3, Magnesium Level 2.0, Total Bilirubin 0.4, Direct Bilirubin 0.1, Aspartate Amino Transf (AST/SGOT) 10, Alanine Aminotransferase (ALT/SGPT) 12, Alkaline Phosphatase 116, Total Creatine Kinase 76, Creatine Kinase MB 1.1, Creatine Kinase MB Relative Index 1.45, Troponin I < 0.02, RM-Qvd-Q-Type Natriuretic Peptide 117, Total Protein 8.2, Albumin 4.0, Albumin/Globulin Ratio 1.0, Lipase 118, Thyroid Stimulating Hormone (TSH) 0.685, Free Thyroxine 1.45 05/09/21 02:07: Urine Color AJ, Urine Appearance CLEAR, Urine pH 5.0, Urine Specific [place] 1.016, Urine Protein NEGATIVE, Urine Glucose (UA) NEGATIVE, Urine Ketones NE GATIVE, Urine Blood NEGATIVE, Urine Nitrite NEGATIVE, Urine Bilirubin NEGATIVE, Urine Urobilinogen 0.2, Urine Leukocyte Esterase NEGATIVE, Urine WBC (Auto) 2, Urine RBC (Auto) 1, Urine Hyaline Casts (Auto) 4, Urine Bacteria (Auto) NEGATIVE, Urine Squamous Epithelial Cells 7, Urine Sperm (Auto) 05/09/21 03:28: Anion Gap 5L, Glomerular Filtration Rate 45.7L, Calcium Level 8.2L 05/09/21 03:45: Coronavirus (COVID-19)(PCR) NEGATIVE, Influenza Type A (RT-PCR) NEGATIVE, Influenza Type B (RT-PCR) NEGATIVE, Respiratory Syncytial Virus (PCR) NEGATIVE 05/09/21 07:01: Immature Granulocyte % (Auto) 0.5, Neutrophils (%) (Auto) 56.9, Lymphocytes (%) (Auto) 28.9, Monocytes (%) (Auto) 6.0, Eosinophils (%) (Auto) 7.1H, Basophils (%) (Auto) 0.6, Neutrophils # (Auto) 3.5, Lymphocytes # (Auto) 1.8, Monocytes # (Auto) 0.4, Eosinophils # (Auto) 0.4, Basophils # (Auto) 0.0, Nucleated Red Blood Cells % (auto) 0.0, Anion Gap 2L, Glomerular Filtration Rate 49.5L, Calcium Level 8.3L, Iron Level 56L, Total Iron Binding Capacity 245L, Transferrin % Saturation 22.9, Ferritin 127 05/09/21 14:47: Nucleated Red Blood Cells % (auto) 0.0, Anion Gap 5L, Glomerular Filtration Rate 45.7L, Calcium Level 8.9, Phosphorus Level 2.6#, Magnesium Level 1.8 CBC/BMP Laboratory Tests 05/08/21 17:57 05/08/21 23:55 05/09/21 03:28 05/09/21 07:01 05/09/21 14:47 Discharge Medications Scheduled Apixaban (Eliquis) 5 Mg Tablet, 5 MG PO BID, (Reported) Atorvastatin Calcium (Atorvastatin Calcium) 40 Mg Tablet, 40 MG PO QHS, (Reported) Fluticasone Propion/Salmeterol (Fluticasone-Salmeterol 232-14) 1 Each Aer.pow.ba , 1 PUFF PO BID, (Reported) Furosemide (Furosemide) 40 Mg Tablet, 40 MG PO BID Lisinopril (Lisinopril) 40 Mg Tablet, 40 MG PO QHS, (Reported) Metoprolol Tartrate (Metoprolol Tartrate) 25 Mg Tablet, 25 MG PO BID, (Reported) Spironolactone (Spironolactone) 50 Mg Tablet, 50 MG PO DAILY, (Reported) Umeclidinium [place] (Incruse Ellipta) 62.5 Mcg Blst.w.dev, 1 PUFF INH DAILY, (Reported) Scheduled PRN Albuterol Sulf (Albuterol Sulfate) 2.5 Mg/3 Ml Vial.neb, 1 VIAL NEB QID PRN for SHORTNESS OF BREATH, (Reported) Albuterol Sulfate (Albuterol Sulfate Hfa) 8.5 Gm Hfa.aer.ad, 2 PUFFS INH Q4H PRN for SHORTNESS OF BREATH, (Reported) Tramadol HCl (Tramadol HCl) 50 Mg Tablet, 50 MG PO BID PRN for MODERATE-SEVERE PAIN, (Reported) Allergies Coded Allergies: No Known Drug Allergies (Verified Allergy, Unknown, 05/08/21) RAMY HOLBROOK M.D. May 09, 2021 16:38
--- NOTE | 2021-05-09 16:40 | CR ---
NEPHROLOGY CONSULTATION DATE: 05/09/2021 REQUESTING PHYSICIAN: Cherelle Hall M.D. REASON FOR CONSULTATION: Hyperkalemia and acute kidney injury in this gentleman with multiple chronic medical problems. HISTORY OF PRESENT ILLNESS: Mr. Oro is a 61-year-old gentleman with known history of atrial fibrillation, history of coronary artery disease with prior myocardial infarction (HI) status post angioplasty with stents and coronary artery bypass graft (CABG), history of hypertension, chronic obstructive pulmonary disease (COPD), history of COVID pneumonia requiring hospitalization last year. 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 Apparently, he was noticed to have hyperkalemia and worsening kidney function. Patient is being treated with intravenous (IV) normal saline and also received one dose of Veltassa. His hyperkalemia persists, though slightly improved. Nephrology consultation was requested and patient is seen this morning. PAST MEDICAL AND SURGICAL HISTORY: Significant for: 1. History of hypertension. 2. Coronary artery disease with prior myocardial infarction (HI), history of angioplasties and coronary artery bypass graft (CABG). 3. History of chronic obstructive pulmonary disease (COPD). 4. History of obstructive sleep apnea. 5. History of pulmonary embolism. 6. History of atrial fibrillation on chronic anticoagulation. 7. History of congestive heart failure. 8. History of COVID-19 pneumonia. 9. Active smoking. MEDICATIONS: His home medications include: - Eliquis 5 mg twice a day - atorvastatin 40 mg daily - furosemide 40 mg daily - lisinopril 40 mg daily - metoprolol 25 mg twice a day - spironolactone 50 mg daily - Incruse Ellipta inhaler daily - albuterol as needed - tramadol as needed ALLERGIES: Patient has no known drug allergies. PERSONAL AND SOCIAL HISTORY: Patient is and lives with his . He is a current smoker of 5-7 cigarettes per day. He has a 45 pack year history of smoking. He occasionally drinks alcohol. He has marijuana use and denies any intravenous recreational drug use. FAMILY HISTORY: Significant for heart problems and chronic obstructive pulmonary disease (COPD). REVIEW OF SYSTEMS: CONSTITUTIONAL: Patient denies any headache. He denies any dizziness or lightheadedness. EARS, NOSE AND THROAT: Unremarkable. CARDIOVASCULAR SYSTEM: Significant for congestive heart failure, coronary artery disease and atrial fibrillation. He denies any chest pain at present. He mostly has shortness of breath on exertion due to a combination of his chronic obstructive pulmonary disease (COPD) and cardiac problems. RESPIRATORY SYSTEM: Significant for COPD with active smoking. He denies any hemoptysis or pleuritic type of chest pain. GASTROINTESTINAL SYSTEM: Negative for nausea, vomiting or diarrhea. GENITOURIARY SYSTEM: Negative for dysuria or hematuria. MUSCULOSKELETAL SYSTEM: Significant for mild, chronic lower extremity edema. He denies any arthritis. SKIN: Negative for rash or ulcers. ENDOCRINE SYSTEM: Negative for diabetes or thyroid problems. HEMATOLOGICAL SYSTEM: Significant for prior history of pulmonary embolism and chronic anticoagulation. PSYCHOSOCIAL SYSTEM: Negative for depression/anxiety. NEUROLGOCIAL SYSTEM: Negative for seizures or stroke. PHYSICAL EXAMINATION: GENERAL: Well-built gentleman without any acute distress. VITAL SIGNS: Temperature 98 degrees Fahrenheit, heart rate 70 per minute, respiratory rate 18 per minute, blood pressure 127/77 mmHg, oxygen saturation 95% on room air. HEAD: Atraumatic. NECK: Supple and jugular venous distention (JVD) is about 5 cm above sternal angle. HEART SOUNDS: Irregular. LUNGS: Clear to auscultation. ABDOMEN: Soft and nontender. Bowel sounds are normal. EXTREMITIES: Without any cyanosis or clubbing. There is trace edema on his legs. NEUROLOGIC: He is awake, alert and oriented times three. LABORATORY DATA: On admission, his hemoglobin was 8.4, 10.6, hematocrit 34. On admission, his BUN 42 and creatinine 2.0, sodium 140, potassium 5.5. Today hemoglobin is 8.8 and hematocrit 28.7. Most recent sodium is 141, potassium 5.4, CO2 27, BUN 32, creatinine 1.54. Iron level is 56 and saturation 22.9%. IMAGING: He had a renal ultrasound, which showed no hydronephrosis or stone. Right kidney is 11.4 cm and left kidney 13.1 cm. Small cyst in the left lower pole noted. PROBLEMS: 1. Acute kidney injury superimposed on chronic kidney disease. Patient denies any diarrhea or vomiting prior to admission. I am not sure what his baseline kidney function is. He is not following with nephrology. His kidney function did improve with IV hydration. At this point, a baseline kidney function will need to be determined. At least there is improvement in kidney function with IV fluid, so we will continue with IV fluid hydration for now. He was on diuretics at home, which have been seen and unchanged for at least a year. 2. Persistent hyperkalemia. Patient reports that he had cold symptoms and he has been drinking plenty of orange juice, which may have contributed to his hyperkalemia, as patient was also on potassium-sparing diuretic and angiotensin converting enzyme (GUERITA) inhibitor. I recommend to use higher dose of loop diuretic along with potassium-sparing diuretic to maintain his euvolemia. At present, we will continue with IV fluids and give him a dose of intravenous Lasix 40 mg. He has already received one dose of Veltassa and his renal profile and electrolytes should be repeated in a few hours. 3. Anemia. Patient does seem to have significant anemia without any active bleeding. His iron studies seem to be appropriate. This will also need to be followed up as an outpatient. 4. Congestive heart failure. Volume status seems to be reasonable at present. He has received IV fluids since admission. I am not sure if he was dehydrated at the time of admission. He needs to continue with diuretic as an outpatient and I recommend using furosemide twice a day as well as once a day spironolactone. 5. Atrial fibrillation. At present, his ventricular rate is well controlled with current medications. He has been chronically anticoagulated with Eliquis and low dose beta aydee. He should continue with the same. DISPOSITION: From a renal standpoint, patient can be discharged to home once his hyperkalemia improves. He will need to have followup in the clinic as an outpatient for adjustment in his medications. Thank you for involving me in the care of Mr. Oro. Patient will need followup as an outpatient.
[2021-05-09] MEDS ORDERED: ATORVASTATIN 20 MG TAB PO SCH (21:00)
[2021-05-09] MEDS ORDERED: lisinopriL 40 MG TAB PO SCH (21:00)
[2021-05-11 10:28] LABS: FOLATE 6.3 NG/ML (>5.4)
== END 2021-05-09 17:40 | disposition home or self-care (01) | DRG 422 ==
LOC: M ED 17:25 → M ED INP 05-09 02:00 → ENRESERV 05-09 06:26 → M MS5PR 05-09 07:54
PROVIDERS: ADMIT Internal Medicine; ATTEND Internal Medicine
DX: E87.5 Hyperkalemia (principal); Z99.81 Dependence on supplemental oxygen; I48.91 Unspecified atrial fibrillation; E86.0 Dehydration; J44.9 Chronic obstructive pulmonary disease, unspecified; I10 Essential (primary) hypertension; N18.9 Chronic kidney disease, unspecified; D53.9 Nutritional anemia, unspecified; I25.10 Atherosclerotic heart disease of native coronary artery without angina pectoris; Z66 Do not resuscitate; G89.29 Other chronic pain; I25.2 Old myocardial infarction; G47.33 Obstructive sleep apnea (adult) (pediatric); Z86.16 Personal history of COVID-19; Z79.01 Long term (current) use of anticoagulants; Z79.899 Other long term (current) drug therapy; Z20.822 Contact with and (suspected) exposure to COVID-19; F17.210 Nicotine dependence, cigarettes, uncomplicated; Z86.711 Personal history of pulmonary embolism

== ENCOUNTER → 2021-05-20 | Outpatient (REF) | payer MEDICARE, MEDICAID ==
[~2021-05-20] MED LIST: ALBU8.5H INH; ALBU83IN NEB; ATOR40TA75 PO; ELIQ5TAB PO; FLUT1INH3 PO; FURO40TA2 PO; INCR1INH INH; LISI40TA4 PO; METO1TAB87 PO; SPIR50TA4 PO; TRAM50TA2 PO
[2021-05-21 11:20] LABS: HEMOGLOBIN 10.1 g/dl (13.5-17.5); MEAN CORPUSCULAR HEMOGLOBIN 31.5 pg (27.0-33.0); MEAN CORPUSCULAR HGB CONC 31.6 g/dl (32.0-36.5); MEAN CORPUSCULAR VOLUME 99.7 fl (80.0-96.0); PLATELET COUNT, AUTOMATED 249 10^3/uL (150-450); RED BLOOD COUNT 3.21 10^6/uL (4.30-6.10); WHITE BLOOD COUNT 10.1 10^3/uL (4.0-10.0)
== END ==
LOC: M SFHCCLAY 13:47
PROVIDERS: ATTEND Family Medicine
DX: D53.9 Nutritional anemia, unspecified (principal)
CPT/HCPCS: 85027; G0463

== ENCOUNTER → 2022-06-04 | Outpatient (CLI) | payer MEDICARE, MEDICAID ==
[~2022-06-04] MED LIST changes: +ALBU2.5V10 NEB; -ALBU83IN NEB
== END ==
LOC: M CLY 14:59
PROVIDERS: ATTEND Physician Assistant
DX: R05.9 Cough, unspecified (principal)

== ENCOUNTER → 2022-06-04 | Outpatient (REF) | payer MEDICARE, MEDICAID ==
[2022-06-04 17:37] LABS: BASO % 0.4 % (0.0-1.0); EOS # 0.1 10^3/uL (0.0-0.5); EOS % 1.3 % (0.0-3.0); HEMATOCRIT 42.8 % (42.0-52.0); HEMOGLOBIN 13.3 g/dl (13.5-17.5); LYMPH # 2.2 10^3/uL (1.5-5.0); LYMPH % 24.8 % (24.0-44.0); MEAN CORPUSCULAR HEMOGLOBIN 29.3 pg (27.0-33.0); MEAN CORPUSCULAR HGB CONC 31.1 g/dl (32.0-36.5); MEAN CORPUSCULAR VOLUME 94.3 fl (80.0-96.0); MONO # 0.7 10^3/uL (0.0-0.8); MONO % 7.4 % (2.0-8.0); NEUTROPHILS % 65.8 % (36.0-66.0); PLATELET COUNT, AUTOMATED 252 10^3/uL (150-450); RED BLOOD COUNT 4.54 10^6/uL (4.30-6.10); WHITE BLOOD COUNT 9.1 10^3/uL (4.0-10.0)
[2022-06-04 18:00] LABS: ALBUMIN 3.3 G/DL (3.2-5.2); ALKALINE PHOSPHATASE 102 U/L (46-116); ALT/SGPT 9 U/L (7.0-40); AST/SGOT 15 U/L (<34); BILIRUBIN,TOTAL 0.9 MG/DL (0.3-1.2); BLOOD UREA NITROGEN 16 MG/DL (9-23); CALCIUM LEVEL 8.7 MG/DL (8.3-10.6); CARBON DIOXIDE LEVEL 29 MMOL/L (20-31); CHLORIDE LEVEL 102 MMOL/L (98-107); CREATININE FOR GFR 0.95 MG/DL (0.70-1.30); GLOMERULAR FILTRATION RATE > 60.0 (>49); GLUCOSE, FASTING 104 MG/DL (74-106); POTASSIUM SERUM 4.6 MMOL/L (3.5-5.1); SODIUM LEVEL 143 MMOL/L (136-145); TOTAL PROTEIN 6.9 G/DL (5.7-8.2)
== END ==
LOC: M SFHCCLAY 14:51
PROVIDERS: ATTEND Physician Assistant
DX: J96.01 Acute respiratory failure with hypoxia (principal)

== ENCOUNTER → 2022-06-22 | Outpatient (CLI) | payer MEDICARE, OTHER | LOC: M RAD 14:31 | PROVIDERS: ATTEND Physician Assistant | DX: J98.4 Other disorders of lung (principal) ==

== ENCOUNTER → 2022-08-02 | Outpatient (CLI) | payer MEDICARE, OTHER | LOC: M PLARAD 13:33 | PROVIDERS: ATTEND Internal Medicine Pulmonary Disease | DX: R91.8 Other nonspecific abnormal finding of lung field (principal) | CPT/HCPCS: 78815; A9552 ==

== ENCOUNTER → 2022-08-03 | Outpatient (CLI) | payer MEDICARE, OTHER ==
[~2022-08-03] MED LIST changes: +ACET1TAB55 PO; +ASPI81TA26 PO; +BISO10TA14 PO; +BREO1INH INH; +DIGO0.123 PO; +ENTR1TAB PO; +ENTR1TAB7 PO; +JARD1TAB PO; +PANT40TA29 PO
[2022-08-03 16:07] LABS: BLOOD UREA NITROGEN 18 MG/DL (9-23); CALCIUM LEVEL 8.8 MG/DL (8.3-10.6); CARBON DIOXIDE LEVEL 34 MMOL/L (20-31); CHLORIDE LEVEL 105 MMOL/L (98-107); CREATININE FOR GFR 0.85 MG/DL (0.70-1.30); GLOMERULAR FILTRATION RATE > 60.0 (>49); GLUCOSE, FASTING 96 MG/DL (74-106); POTASSIUM SERUM 3.7 MMOL/L (3.5-5.1); SODIUM LEVEL 141 MMOL/L (136-145)
== END ==
LOC: M LAB 14:57
PROVIDERS: ATTEND Internal Medicine Cardiovascular Disease
DX: I50.32 Chronic diastolic (congestive) heart failure (principal)

== ENCOUNTER → 2022-08-04 | Outpatient (CLI) | payer MEDICARE, OTHER ==
[~2022-08-04] MED LIST changes: +HOME MED LIST COMPLETE! XX SCH; +LIDOCAINE 1% MDV 20ML VIAL As Ordered ONE
[2022-08-04 08:44] LABS: HEMATOCRIT 42.1 % (42.0-52.0); MEAN CORPUSCULAR HEMOGLOBIN 28.2 pg (27.0-33.0); MEAN CORPUSCULAR HGB CONC 30.9 g/dl (32.0-36.5); MEAN CORPUSCULAR VOLUME 91.3 fl (80.0-96.0); PLATELET COUNT, AUTOMATED 196 10^3/uL (150-450); RED BLOOD COUNT 4.61 10^6/uL (4.30-6.10); WHITE BLOOD COUNT 6.3 10^3/uL (4.0-10.0)
[2022-08-04 09:19] LABS: INR 0.96
[2022-08-04 11:30] VITALS: BP 130/90
== END ==
LOC: M IRPRO 08:07
PROVIDERS: ATTEND Internal Medicine Pulmonary Disease
DX: R91.8 Other nonspecific abnormal finding of lung field (principal); Z79.01 Long term (current) use of anticoagulants

== ENCOUNTER → 2022-08-16 | Outpatient (REF) | payer MEDICARE, OTHER ==
[~2022-08-16] MED LIST changes: -HOME MED LIST COMPLETE! XX SCH; -LIDOCAINE 1% MDV 20ML VIAL As Ordered ONE
[2022-08-20 18:07] LABS: ASPERGILLUS FLAVUS ABY Negative (Neg:<1:1); ASPERGILLUS FUMIGATUS ABY Negative (Neg:<1:1); ASPERGILLUS NIGER ABY Negative (Neg:<1:1); BLASTOMYCES ABY Negative (Neg:<1:1)
== END ==
LOC: M LAB REF 17:47
PROVIDERS: ATTEND Internal Medicine Pulmonary Disease
DX: R91.8 Other nonspecific abnormal finding of lung field (principal)

== ENCOUNTER 2022-09-17 05:27 | Inpatient (IN) | payer MEDICARE, OTHER ==
[~2022-09-17] VITALS: Ht 188 cm; Wt 108.5 kg
[2022-09-17] VITALS (12 sets, daily range): BP systolic 124–132; BP diastolic 88–98; O2SAT 91–95
[2022-09-17] MEDS ORDERED: IPRATROPIUM 0.5MG/ALBUTEROL 2.5MG INH SOL UD 3ML (DUONEB) NEB ONE ×2 (05:40)
[2022-09-17] MEDS: METOPROLOL 5 MG/5 ML VIAL IV SCH ×3 (05:55→06:27)
[2022-09-17 05:59] LABS: ABG HCO3 30.4 MEQ/L (22.0-26.0); ABG PARTIAL PRESSURE O2 90.8 mmHg (75.0-100.0); ABG STANDARD HCO3 26.2 MEQ/L (22.0-26.0); ABG TOTAL CO2 32.3 MEQ/L (23.0-31.0); ABG pH (ARTERIAL) 7.295 UNITS (7.350-7.450)
[2022-09-17 06:07] LABS: ABG PARTIAL PRESSURE CO2 63.9 mmHg (35.0-45.0)
[2022-09-17 06:15] LABS: INR 1.15; PROTHROMBIN TIME 14.9 SECONDS (12.5-14.5)
[2022-09-17 06:42] LABS: BASO % 0.4 % (0.0-1.0); EOS # 0.1 10^3/uL (0.0-0.5); EOS % 0.9 % (0.0-3.0); HEMATOCRIT 45.2 % (42.0-52.0); HEMOGLOBIN 13.7 g/dl (13.5-17.5); LYMPH # 0.7 10^3/uL (1.5-5.0); LYMPH % 6.9 % (24.0-44.0); MEAN CORPUSCULAR HEMOGLOBIN 27.7 pg (27.0-33.0); MEAN CORPUSCULAR HGB CONC 30.3 g/dl (32.0-36.5); MEAN CORPUSCULAR VOLUME 91.5 fl (80.0-96.0); MONO # 0.5 10^3/uL (0.0-0.8); MONO % 4.9 % (2.0-8.0); NEUTROPHILS # 8.3 10^3/uL (1.5-8.5); NEUTROPHILS % 85.6 % (36.0-66.0); PLATELET COUNT, AUTOMATED 233 10^3/uL (150-450); RED BLOOD COUNT 4.94 10^6/uL (4.30-6.10); WHITE BLOOD COUNT 9.7 10^3/uL (4.0-10.0)
[2022-09-17] MEDS ORDERED: HOME MED LIST COMPLETE! XX SCH (07:10)
[2022-09-17 07:23] LABS: CK-MB VALUE MASS 1.4 NG/ML (<3.6)
[2022-09-17 07:27] LABS: THYROXINE (T4) 11.9 UG/DL (4.5-10.9)
[2022-09-17 07:29] LABS: ALKALINE PHOSPHATASE 298 U/L (46-116); ALT/SGPT 21 U/L (7.0-40); AST/SGOT 65 U/L (<34); BILIRUBIN,DIRECT 0.2 MG/DL (<0.4); BILIRUBIN,TOTAL 0.4 MG/DL (0.3-1.2); BLOOD UREA NITROGEN 20 MG/DL (9-23); CARBON DIOXIDE LEVEL 28 MMOL/L (20-31); CHLORIDE LEVEL 102 MMOL/L (98-107); CK-MB VALUE MASS 1.4 NG/ML (<3.6); CPK CREATINE PHOSPHOKINASE 77 U/L (46-171); CREATININE FOR GFR 0.82 MG/DL (0.70-1.30); GLOMERULAR FILTRATION RATE > 60.0 (>49); GLUCOSE, FASTING 164 MG/DL (74-106); MB/CK RELATIVE INDEX 1.81 (< OR =4); POTASSIUM SERUM 4.3 MMOL/L (3.5-5.1); SODIUM LEVEL 139 MMOL/L (136-145); THYROID STIMULATING HORMONE 0.287 uIU/ML (0.55-4.78); TOTAL PROTEIN 6.9 G/DL (5.7-8.2)
[2022-09-17 07:30] LABS: MB/CK RELATIVE INDEX 2.08 (< OR =4)
[2022-09-17] MEDS ORDERED: ALBUTEROL 90 MCG/ACT 8GM HFA INHALER INH PRN (08:45)
[2022-09-17] MEDS ORDERED: bisoproloL fumarate 5 MG TAB PO ONE (09:15)
[2022-09-17 09:57] LABS: FREE T4 1.32 NG/DL (0.89-1.76)
[2022-09-17] MEDS ORDERED: AZITHROMYCIN INJ 500 MG, VIAL MATE ADAPTER 1 EACH in NS 250 ML IV SCH (10:00)
[2022-09-17 10:40] LABS: INR 1.15; PROTHROMBIN TIME 14.9 SECONDS (12.5-14.5)
[2022-09-17] MEDS: DAPAGLIFLOZIN PROPANEDIOL 10MG TABLET (FARXIGA) PO SCH (12:13)
[2022-09-17] MEDS: NICOTINE 21MG/24HR 1 EA TRANSDERMAL TD SCH (12:13)
[2022-09-17] MEDS: ASPIRIN 81MG ENTERIC TABLET PO SCH (12:14)
[2022-09-17] MEDS: APIXABAN 5 MG TAB (ELIQUIS) PO SCH ×2 (12:14→20:08)
[2022-09-17] MEDS: SPIRONOLACTONE 12.5MG PER 1/2 TABLET PO SCH (12:15)
[2022-09-17] MEDS: PANTOPRAZOLE 40MG TAB (PROTONIX) PO SCH (12:15)
[2022-09-17] MEDS: DIGOXIN 0.125 MG TAB PO SCH (12:15)
[2022-09-17] MEDS: methylPREDNISolone 125MG 2ML VIAL IV SCH ×2 (12:27→18:26)
[2022-09-17] MEDS: IPRATROPIUM 0.5MG/ALBUTEROL 2.5MG INH SOL UD 3ML (DUONEB) NEB SCH ×2 (13:40→19:49)
[2022-09-17] MEDS: ENTRESTO 49-51MG TABLET (SACUBITRIL/VALSARTAN) PO SCH ×2 (16:13→20:08)
[2022-09-17] MEDS: cefTRIAXone SOD 1 GM in D5W MINI-BAG PLUS 50 ML IV SCH (18:25)
[2022-09-17] MEDS: ADVAIR HFA 115/21MCG INHALER INH SCH (19:49)
[2022-09-18] VITALS (22 sets, daily range): BP systolic 120–142; BP diastolic 79–101; O2SAT 88–96
[2022-09-18] MEDS: IPRATROPIUM 0.5MG/ALBUTEROL 2.5MG INH SOL UD 3ML (DUONEB) NEB SCH ×4 (01:29→20:38)
[2022-09-18] MEDS: methylPREDNISolone 125MG 2ML VIAL IV SCH ×3 (02:58→17:54)
[2022-09-18] MEDS: ACETAMINOPHEN TAB 650MG DOSE (2X325MG) PO PRN ×2 (03:53→21:15)
[2022-09-18 05:43] LABS: BASO % 0.1 % (0.0-1.0); HEMATOCRIT 44.8 % (42.0-52.0); HEMOGLOBIN 13.4 g/dl (13.5-17.5); LYMPH # 0.5 10^3/uL (1.5-5.0); LYMPH % 6.7 % (24.0-44.0); MEAN CORPUSCULAR HEMOGLOBIN 28.2 pg (27.0-33.0); MEAN CORPUSCULAR HGB CONC 29.9 g/dl (32.0-36.5); MEAN CORPUSCULAR VOLUME 94.1 fl (80.0-96.0); MONO # 0.1 10^3/uL (0.0-0.8); MONO % 1.1 % (2.0-8.0); NEUTROPHILS # 6.4 10^3/uL (1.5-8.5); NEUTROPHILS % 91.2 % (36.0-66.0); PLATELET COUNT, AUTOMATED 228 10^3/uL (150-450); RED BLOOD COUNT 4.76 10^6/uL (4.30-6.10)
[2022-09-18 06:03] LABS: ABG BASE EXCESS 0.4 (-2.0-2.0); ABG HCO3 29.3 MEQ/L (22.0-26.0); ABG PARTIAL PRESSURE O2 109.4 mmHg (75.0-100.0); ABG STANDARD HCO3 24.9 MEQ/L (22.0-26.0); ABG TOTAL CO2 31.3 MEQ/L (23.0-31.0); ABG pH (ARTERIAL) 7.255 UNITS (7.350-7.450)
[2022-09-18 06:04] LABS: BLOOD UREA NITROGEN 28 MG/DL (9-23); CALCIUM LEVEL 8.3 MG/DL (8.3-10.6); CARBON DIOXIDE LEVEL 33 MMOL/L (20-31); CHLORIDE LEVEL 102 MMOL/L (98-107); CREATININE FOR GFR 0.89 MG/DL (0.70-1.30); GLOMERULAR FILTRATION RATE > 60.0 (>49); GLUCOSE, FASTING 154 MG/DL (74-106); MAGNESIUM LEVEL 2.1 MG/DL (1.8-2.4); SODIUM LEVEL 142 MMOL/L (136-145)
[2022-09-18 06:08] LABS: ABG PARTIAL PRESSURE CO2 67.5 mmHg (35.0-45.0)
[2022-09-18] MEDS: ADVAIR HFA 115/21MCG INHALER INH SCH ×2 (07:08→20:39)
[2022-09-18] MEDS ORDERED: ACETYLCYSTEINE 10% 30ML VIAL INH SCH (08:00)
[2022-09-18 08:07] LABS: ALBUMIN 2.8 G/DL (3.2-5.2); ALKALINE PHOSPHATASE 230 U/L (46-116); ALT/SGPT 15 U/L (7.0-40); AST/SGOT 14 U/L (<34); BILIRUBIN,DIRECT 0.1 MG/DL (<0.4); BILIRUBIN,TOTAL 0.3 MG/DL (0.3-1.2); TOTAL PROTEIN 6.7 G/DL (5.7-8.2)
[2022-09-18] MEDS ORDERED: bisoproloL fumarate 10 MG TAB PO SCH (09:00)
[2022-09-18] MEDS: NICOTINE 21MG/24HR 1 EA TRANSDERMAL TD SCH (09:56)
[2022-09-18] MEDS: SPIRONOLACTONE 12.5MG PER 1/2 TABLET PO SCH (09:56)
[2022-09-18] MEDS: DAPAGLIFLOZIN PROPANEDIOL 10MG TABLET (FARXIGA) PO SCH (09:57)
[2022-09-18] MEDS: APIXABAN 5 MG TAB (ELIQUIS) PO SCH ×2 (09:57→21:15)
[2022-09-18] MEDS: ENTRESTO 49-51MG TABLET (SACUBITRIL/VALSARTAN) PO SCH ×2 (09:57→21:16)
[2022-09-18] MEDS: AZITHROMYCIN 250MG TABLET PO SCH (09:57)
[2022-09-18] MEDS: ASPIRIN 81MG ENTERIC TABLET PO SCH (09:57)
[2022-09-18] MEDS: PANTOPRAZOLE 40MG TAB (PROTONIX) PO SCH (09:57)
[2022-09-18] MEDS: DIGOXIN 0.125 MG TAB PO SCH (10:03)
[2022-09-18] MEDS: bisoproloL fumarate 10 MG TAB PO SCH (10:30)
[2022-09-18 11:44] LABS: FREE T3 1.9 PG/ML (2.3-4.2); TOTAL T3 80.8 NG/DL (60.0-181.0)
[2022-09-18 12:50] LABS: ABG pH (ARTERIAL) 7.312 UNITS (7.350-7.450)
[2022-09-18 12:51] LABS: ABG BASE EXCESS 3.9 (-2.0-2.0); ABG HCO3 32.2 MEQ/L (22.0-26.0); ABG O2 SATURATION 95.5 % (95.0-99.0); ABG PARTIAL PRESSURE O2 76.2 mmHg (75.0-100.0); ABG STANDARD HCO3 27.9 MEQ/L (22.0-26.0); ABG TOTAL CO2 34.2 MEQ/L (23.0-31.0)
[2022-09-18 12:57] LABS: ABG PARTIAL PRESSURE CO2 65.1 mmHg (35.0-45.0)
[2022-09-18] MEDS: guaiFENesin ER 600 MG TAB PO SCH ×2 (13:40→21:15)
[2022-09-18] MEDS: ACETYLCYSTEINE 20% 4 ML VIAL (200MG/ML) INH SCH ×2 (17:22→20:38)
[2022-09-18] MEDS: cefTRIAXone SOD 1 GM in D5W MINI-BAG PLUS 50 ML IV SCH (17:55)
[2022-09-19] VITALS (27 sets, daily range): BP systolic 110–144; BP diastolic 70–89; O2SAT 88–98
[2022-09-19] MEDS: IPRATROPIUM 0.5MG/ALBUTEROL 2.5MG INH SOL UD 3ML (DUONEB) NEB SCH ×4 (01:38→19:46)
[2022-09-19] MEDS: methylPREDNISolone 125MG 2ML VIAL IV SCH ×3 (02:32→17:30)
[2022-09-19 05:46] LABS: BASO % 0.1 % (0.0-1.0); HEMATOCRIT 44.9 % (42.0-52.0); HEMOGLOBIN 13.5 g/dl (13.5-17.5); LYMPH # 0.5 10^3/uL (1.5-5.0); MEAN CORPUSCULAR HEMOGLOBIN 28.1 pg (27.0-33.0); MEAN CORPUSCULAR HGB CONC 30.1 g/dl (32.0-36.5); MEAN CORPUSCULAR VOLUME 93.3 fl (80.0-96.0); MONO # 0.1 10^3/uL (0.0-0.8); MONO % 1.2 % (2.0-8.0); NEUTROPHILS # 8.5 10^3/uL (1.5-8.5); NEUTROPHILS % 92.8 % (36.0-66.0); PLATELET COUNT, AUTOMATED 258 10^3/uL (150-450); RED BLOOD COUNT 4.81 10^6/uL (4.30-6.10); WHITE BLOOD COUNT 9.1 10^3/uL (4.0-10.0)
[2022-09-19 06:05] LABS: BLOOD UREA NITROGEN 32 MG/DL (9-23); CALCIUM LEVEL 8.6 MG/DL (8.3-10.6); CARBON DIOXIDE LEVEL 33 MMOL/L (20-31); CHLORIDE LEVEL 104 MMOL/L (98-107); CREATININE FOR GFR 0.78 MG/DL (0.70-1.30); GLOMERULAR FILTRATION RATE > 60.0 (>49); GLUCOSE, FASTING 142 MG/DL (74-106); MAGNESIUM LEVEL 2.2 MG/DL (1.8-2.4); POTASSIUM SERUM 4.2 MMOL/L (3.5-5.1); SODIUM LEVEL 142 MMOL/L (136-145)
[2022-09-19] MEDS: ADVAIR HFA 115/21MCG INHALER INH SCH ×2 (07:19→19:46)
[2022-09-19] MEDS: ACETYLCYSTEINE 20% 4 ML VIAL (200MG/ML) INH SCH ×2 (07:19→19:45)
[2022-09-19] MEDS: NICOTINE 21MG/24HR 1 EA TRANSDERMAL TD SCH (09:00)
[2022-09-19] MEDS: ASPIRIN 81MG ENTERIC TABLET PO SCH (09:13)
[2022-09-19] MEDS: bisoproloL fumarate 10 MG TAB PO SCH (09:14)
[2022-09-19] MEDS: AZITHROMYCIN 250MG TABLET PO SCH (09:14)
[2022-09-19] MEDS: PANTOPRAZOLE 40MG TAB (PROTONIX) PO SCH (09:14)
[2022-09-19] MEDS: APIXABAN 5 MG TAB (ELIQUIS) PO SCH ×2 (09:14→21:00)
[2022-09-19] MEDS: DAPAGLIFLOZIN PROPANEDIOL 10MG TABLET (FARXIGA) PO SCH (09:15)
[2022-09-19] MEDS: ENTRESTO 49-51MG TABLET (SACUBITRIL/VALSARTAN) PO SCH ×2 (09:15→21:00)
[2022-09-19] MEDS: guaiFENesin ER 600 MG TAB PO SCH ×2 (09:15→21:01)
[2022-09-19] MEDS: SPIRONOLACTONE 12.5MG PER 1/2 TABLET PO SCH (09:15)
[2022-09-19] MEDS: DIGOXIN 0.125 MG TAB PO SCH (09:17)
[2022-09-19] MEDS: cefTRIAXone SOD 1 GM in D5W MINI-BAG PLUS 50 ML IV SCH (17:30)
[2022-09-19] MEDS: ACETAMINOPHEN TAB 650MG DOSE (2X325MG) PO PRN (21:00)
[2022-09-20] VITALS (20 sets, daily range): BP systolic 112–137; BP diastolic 57–88; O2SAT 90–95
[2022-09-20] MEDS: IPRATROPIUM 0.5MG/ALBUTEROL 2.5MG INH SOL UD 3ML (DUONEB) NEB SCH ×3 (02:43→13:35)
[2022-09-20] MEDS: methylPREDNISolone 125MG 2ML VIAL IV SCH ×3 (05:14→16:58)
[2022-09-20] MEDS: ACETAMINOPHEN TAB 650MG DOSE (2X325MG) PO PRN (05:34)
[2022-09-20] MEDS ORDERED: LIDOCAINE 5% (LIDODERM) PATCH TD PRN (05:45)
[2022-09-20] MEDS ORDERED: traMADol 50 MG TAB PO ONE (05:45)
[2022-09-20 07:00] LABS: BASO % 0.2 % (0.0-1.0); HEMATOCRIT 43.8 % (42.0-52.0); LYMPH # 0.7 10^3/uL (1.5-5.0); LYMPH % 6.6 % (24.0-44.0); MEAN CORPUSCULAR HEMOGLOBIN 27.8 pg (27.0-33.0); MEAN CORPUSCULAR HGB CONC 29.7 g/dl (32.0-36.5); MEAN CORPUSCULAR VOLUME 93.6 fl (80.0-96.0); MONO # 0.2 10^3/uL (0.0-0.8); MONO % 2.3 % (2.0-8.0); NEUTROPHILS % 89.6 % (36.0-66.0); PLATELET COUNT, AUTOMATED 261 10^3/uL (150-450); RED BLOOD COUNT 4.68 10^6/uL (4.30-6.10); WHITE BLOOD COUNT 10.1 10^3/uL (4.0-10.0)
[2022-09-20 07:29] LABS: BLOOD UREA NITROGEN 32 MG/DL (9-23); CALCIUM LEVEL 7.9 MG/DL (8.3-10.6); CARBON DIOXIDE LEVEL 36 MMOL/L (20-31); CHLORIDE LEVEL 103 MMOL/L (98-107); CREATININE FOR GFR 0.76 MG/DL (0.70-1.30); GLOMERULAR FILTRATION RATE > 60.0 (>49); GLUCOSE, FASTING 155 MG/DL (74-106); MAGNESIUM LEVEL 2.2 MG/DL (1.8-2.4); POTASSIUM SERUM 3.8 MMOL/L (3.5-5.1); SODIUM LEVEL 142 MMOL/L (136-145)
[2022-09-20] MEDS: ACETYLCYSTEINE 20% 4 ML VIAL (200MG/ML) INH SCH (07:55)
[2022-09-20] MEDS: ADVAIR HFA 115/21MCG INHALER INH SCH (07:55)
[2022-09-20] MEDS: PANTOPRAZOLE 40MG TAB (PROTONIX) PO SCH (08:56)
[2022-09-20] MEDS: bisoproloL fumarate 10 MG TAB PO SCH (08:56)
[2022-09-20] MEDS: DAPAGLIFLOZIN PROPANEDIOL 10MG TABLET (FARXIGA) PO SCH (08:57)
[2022-09-20] MEDS: ENTRESTO 49-51MG TABLET (SACUBITRIL/VALSARTAN) PO SCH (08:57)
[2022-09-20] MEDS: SPIRONOLACTONE 12.5MG PER 1/2 TABLET PO SCH (08:57)
[2022-09-20] MEDS: APIXABAN 5 MG TAB (ELIQUIS) PO SCH (08:57)
[2022-09-20] MEDS: ASPIRIN 81MG ENTERIC TABLET PO SCH (08:57)
[2022-09-20] MEDS: guaiFENesin ER 600 MG TAB PO SCH (08:57)
[2022-09-20] MEDS: NICOTINE 21MG/24HR 1 EA TRANSDERMAL TD SCH (08:59)
[2022-09-20] MEDS ORDERED: AUGMENTIN 875 MG TAB PO SCH (09:00)
[2022-09-20] MEDS: DIGOXIN INJ 0.5 MG/2 ML AMP IV SCH ×2 (09:00→15:18)
[2022-09-20] MEDS ORDERED: NICO21PAT TD (14:26)
[2022-09-20] MEDS ORDERED: DIGO0.123 PO ×2 (14:26→14:31)
[2022-09-20] MEDS ORDERED: PRED10TA2 PO (14:26)
[2022-09-20] MEDS ORDERED: MUCI600T31 PO (14:26)
[2022-09-20] MEDS ORDERED: BISO10TA14 PO ×2 (14:26→14:31)
[2022-09-20] MEDS ORDERED: ALDA25TA2 PO (14:26)
[2022-09-20] MEDS ORDERED: LIDO5TD TD (14:26)
[2022-09-20] MEDS ORDERED: AMOX875T2 PO (14:31)
[2022-09-20] MEDS ORDERED: METO25TA PO (15:29)
[2022-09-20] MEDS ORDERED: AZIT-12 PO (15:29)
[2022-09-20] MEDS ORDERED: IPRA0.00 INH (15:29)
[2022-09-20] MEDS ORDERED: PRED20TA PO (15:29)
[2022-09-20] MEDS ORDERED: FURO20TA2 PO (15:31)
[2022-09-21] MEDS ORDERED: predniSONE 10MG TAB PO SCH (09:00)
== END 2022-09-20 17:40 | disposition home health service (06) | DRG 177 ==
LOC: EDBD 05:27 → M ED 05:27 → M ED INP 08:42 → ENRESERV 09:50 → M PCU 12:05
PROVIDERS: ADMIT Student in an Organized Health Care Education/Training Program; ATTEND Student in an Organized Health Care Education/Training Program
PROC: B246ZZZ Ultrasonography of Right and Left Heart (ICD-10-PCS; principal; 2022-09-17)
DX: J15.6 Pneumonia due to other Gram-negative bacteria (principal); J96.21 Acute and chronic respiratory failure with hypoxia; J96.22 Acute and chronic respiratory failure with hypercapnia; J44.0 Chronic obstructive pulmonary disease with (acute) lower respiratory infection; I50.22 Chronic systolic (congestive) heart failure; J44.1 Chronic obstructive pulmonary disease with (acute) exacerbation; E87.29 Other acidosis; I48.91 Unspecified atrial fibrillation; F17.210 Nicotine dependence, cigarettes, uncomplicated; I25.10 Atherosclerotic heart disease of native coronary artery without angina pectoris; I25.2 Old myocardial infarction; I11.0 Hypertensive heart disease with heart failure; J12.89 Other viral pneumonia; G47.33 Obstructive sleep apnea (adult) (pediatric); E05.90 Thyrotoxicosis, unspecified without thyrotoxic crisis or storm; K21.9 Gastro-esophageal reflux disease without esophagitis; Z86.16 Personal history of COVID-19; Z86.711 Personal history of pulmonary embolism; Z95.5 Presence of coronary angioplasty implant and graft; Z79.01 Long term (current) use of anticoagulants; Z79.82 Long term (current) use of aspirin; Z79.899 Other long term (current) drug therapy; Z91.018 Allergy to other foods; Z99.81 Dependence on supplemental oxygen

== ENCOUNTER → 2022-09-29 | Outpatient (REF) | payer MEDICARE, MEDICAID ==
[~2022-09-29] MED LIST changes: +ALDA25TA2 PO; +AMOX875T2 PO; +AZIT-12 PO; +FURO20TA2 PO; +IPRA0.00 INH; +LIDO5TD TD; +METO25TA PO; +MUCI600T31 PO; +NICO21PAT TD; +PRED10TA2 PO; +PRED20TA PO
[2022-09-29 17:55] LABS: ALBUMIN 3.1 G/DL (3.2-5.2); ALKALINE PHOSPHATASE 84 U/L (46-116); ALT/SGPT 10 U/L (7.0-40); AST/SGOT 9 U/L (<34); BILIRUBIN,TOTAL 0.5 MG/DL (0.3-1.2); BLOOD UREA NITROGEN 24 MG/DL (9-23); CALCIUM LEVEL 7.8 MG/DL (8.3-10.6); CARBON DIOXIDE LEVEL 36 MMOL/L (20-31); CHLORIDE LEVEL 104 MMOL/L (98-107); CREATININE FOR GFR 0.93 MG/DL (0.70-1.30); GLOMERULAR FILTRATION RATE > 60.0 (>49); GLUCOSE, FASTING 104 MG/DL (74-106); POTASSIUM SERUM 3.4 MMOL/L (3.5-5.1); SODIUM LEVEL 143 MMOL/L (136-145); TOTAL PROTEIN 5.8 G/DL (5.7-8.2)
[2022-09-29 17:56] LABS: FREE T4 1.39 NG/DL (0.89-1.76); TOTAL T3 70.4 NG/DL (60.0-181.0)
[2022-09-29 17:57] LABS: THYROID STIMULATING HORMONE 0.683 uIU/ML (0.55-4.78)
== END ==
LOC: M SFHCCLAY 14:31
PROVIDERS: ATTEND Nurse Practitioner Family
DX: E05.90 Thyrotoxicosis, unspecified without thyrotoxic crisis or storm (principal)

== ENCOUNTER → 2022-11-01 | Outpatient (CLI) | payer MEDICARE, OTHER | LOC: M PLAIMG 12:30 | PROVIDERS: ATTEND Internal Medicine Pulmonary Disease | DX: R91.8 Other nonspecific abnormal finding of lung field (principal) ==

== ENCOUNTER 2022-11-15 13:16 | Inpatient (IN) | payer MEDICARE, OTHER ==
[2022-11-15] VITALS (7 sets, daily range): BP systolic 124–131; BP diastolic 85–93
[~2022-11-15 13:16] MED LIST changes: +NALOXONE 2MG/2ML SYRINGE IV STA
[2022-11-15] MEDS ORDERED: NALOXONE 2MG/2ML SYRINGE As Ordered ONE (13:18)
[2022-11-15] MEDS ORDERED: PROPOFOL 1,000 MG/100 ML VIAL As Ordered ONE (13:32)
[2022-11-15] MEDS ORDERED: SUCCINYLCHOLINE INJ 200MG/10ML VIAL IV ONE (13:40)
[2022-11-15] MEDS ORDERED: propofoL 1,000 MG in IV 1 EA IV SCH (13:40)
[2022-11-15] MEDS ORDERED: ROCURONIUM BROMIDE 50MG/5ML VIAL IV ONE (13:40)
[2022-11-15] MEDS ORDERED: FUROSEMIDE 100MG/10ML VIAL IV ONE (13:40)
[2022-11-15] MEDS ORDERED: ETOMIDATE INJ 20MG/10ML VIAL IV ONE (13:40)
[2022-11-15 13:54] LABS: HEMATOCRIT 48.5 % (42.0-52.0); HEMOGLOBIN 14.5 g/dl (13.5-17.5); MEAN CORPUSCULAR HEMOGLOBIN 29.1 pg (27.0-33.0); MEAN CORPUSCULAR HGB CONC 29.9 g/dl (32.0-36.5); MEAN CORPUSCULAR VOLUME 97.2 fl (80.0-96.0); PLATELET COUNT, AUTOMATED 273 10^3/uL (150-450); RED BLOOD COUNT 4.99 10^6/uL (4.30-6.10); WHITE BLOOD COUNT 12.3 10^3/uL (4.0-10.0)
[2022-11-15 14:05] LABS: INR 1.24; PROTHROMBIN TIME 15.9 SECONDS (12.5-14.5)
[2022-11-15 14:06] LABS: ATYPICAL LYMPH 5 % (0-5); LYMPHOCYTES 14 % (16-44); MONOCYTES 10 % (0-5); NEUTROPHILS 69 % (28-66); PLATELET ESTIMATE NORMAL (NORMAL)
[2022-11-15 14:07] LABS: ANISOCYTOSIS 1+; HYPOCHROMASIA 2+; POIKILOCYTOSIS 1+; POLYCHROMASIA 1+
[2022-11-15 14:26] LABS: ALBUMIN 2.1 G/DL (3.2-5.2); ALKALINE PHOSPHATASE 136 U/L (46-116); ALT/SGPT 23 U/L (7.0-40); AST/SGOT 18 U/L (<34); BILIRUBIN,DIRECT 0.2 MG/DL (<0.4); BILIRUBIN,TOTAL 0.4 MG/DL (0.3-1.2); BLOOD UREA NITROGEN 35 MG/DL (9-23); CARBON DIOXIDE LEVEL 26 MMOL/L (20-31); CHLORIDE LEVEL 114 MMOL/L (98-107); GLOMERULAR FILTRATION RATE > 60.0 (>49); GLUCOSE, FASTING 144 MG/DL (74-106); POTASSIUM SERUM 3.6 MMOL/L (3.5-5.1); SODIUM LEVEL 147 MMOL/L (136-145); TOTAL PROTEIN 5.2 G/DL (5.7-8.2)
[2022-11-15 14:28] LABS: THYROID STIMULATING HORMONE 0.133 uIU/ML (0.55-4.78)
[2022-11-15 14:51] LABS: ABG HCO3 28.6 MMOL/L (22.0-26.0); ABG O2 SATURATION 92.2 % (95.0-99.0); ABG PARTIAL PRESSURE O2 63.2 mmHg (75.0-100.0); ABG STANDARD HCO3 23.5 MMOL/L. (22.0-26.0); ABG TOTAL CO2 30.8 MMOL/L (23.0-31.0)
[2022-11-15] MEDS ORDERED: ISOVUE-370 76% 100ML VIAL As Ordered ONE (14:54)
[2022-11-15 15:00] LABS: ABG pH (ARTERIAL) 7.221 UNITS (7.350-7.450)
[2022-11-15 15:01] LABS: ABG PARTIAL PRESSURE CO2 71.4 mmHg (35.0-45.0)
[2022-11-15] MEDS ORDERED: CHLO1TAB35 PO (16:08)
[2022-11-15] MEDS ORDERED: HOME MED LIST COMPLETE! XX SCH (16:10)
[2022-11-15] MEDS ORDERED: FENTANYL DRIP LOCK BOX KEY 1 EACH XX PRN (16:25)
[2022-11-15] MEDS ORDERED: fentaNYL CITRATE/NaCl 1,000 MCG in IV 1 EA IV SCH (16:25)
[2022-11-15] MEDS ORDERED: MIDAZOLAM INJ 2MG/2ML VIAL IV PRN (16:35)
[2022-11-15] MEDS ORDERED: D5W 1,000 ML IV SCH (17:55)
[2022-11-15] MEDS: methylPREDNISolone 125MG 2ML VIAL IV SCH (18:14)
[2022-11-15] MEDS: PIPERACILLIN/TAZOBACTAM SOD 4.5 GM in D5W MINI-BAG PLUS 50 ML IV SCH (18:14)
[2022-11-15] MEDS ORDERED: VANCOMYCIN HCL 1,000 MG, VIAL MATE ADAPTER 1 EACH in D5W 250 ML IV ONE (19:00)
[2022-11-15] MEDS: IPRATROPIUM 0.5MG/ALBUTEROL 2.5MG INH SOL UD 3ML (DUONEB) NEB SCH ×2 (19:23→23:17)
[2022-11-15] MEDS: ENOXAPARIN 100MG/1ML SYRINGE (J1650 PER 10MG) SC SCH (20:11)
[2022-11-15] MEDS: CHLORHEXIDINE GLUCONATE 0.12 % 15ML UDC (PERIDEX ORAL RINSE) MT SCH (20:11)
[2022-11-15] MEDS ORDERED: ENOXAPARIN 100MG/1ML SYRINGE (J1650 PER 10MG) SC SCH (21:00)
[2022-11-15] MEDS: VANCOMYCIN HCL 1,000 MG, VIAL MATE ADAPTER 1 EACH in D5W 250 ML IV SCH (21:27)
[2022-11-16] VITALS (38 sets, daily range): BP systolic 103–158; BP diastolic 69–95
[2022-11-16] MEDS: methylPREDNISolone 125MG 2ML VIAL IV SCH ×3 (00:29→17:07)
[2022-11-16] MEDS: PIPERACILLIN/TAZOBACTAM SOD 4.5 GM in D5W MINI-BAG PLUS 50 ML IV SCH ×5 (00:29→23:55)
[2022-11-16] MEDS: IPRATROPIUM 0.5MG/ALBUTEROL 2.5MG INH SOL UD 3ML (DUONEB) NEB SCH ×5 (03:09→19:15)
[2022-11-16] MEDS: VANCOMYCIN HCL 1,000 MG, VIAL MATE ADAPTER 1 EACH in D5W 250 ML IV SCH (05:06)
[2022-11-16 05:36] LABS: HEMATOCRIT 43.2 % (42.0-52.0); HEMOGLOBIN 12.8 g/dl (13.5-17.5); MEAN CORPUSCULAR HEMOGLOBIN 28.2 pg (27.0-33.0); MEAN CORPUSCULAR HGB CONC 29.6 g/dl (32.0-36.5); MEAN CORPUSCULAR VOLUME 95.2 fl (80.0-96.0); PLATELET COUNT, AUTOMATED 222 10^3/uL (150-450); RED BLOOD COUNT 4.54 10^6/uL (4.30-6.10); WHITE BLOOD COUNT 6.4 10^3/uL (4.0-10.0)
[2022-11-16 05:49] LABS: ABG BASE EXCESS -3.2 (-2.0-2.0); ABG HCO3 23.6 MMOL/L (22.0-26.0); ABG O2 SATURATION 95.2 % (95.0-99.0); ABG PARTIAL PRESSURE CO2 49.2 mmHg (35.0-45.0); ABG PARTIAL PRESSURE O2 76.1 mmHg (75.0-100.0); ABG STANDARD HCO3 21.8 MMOL/L. (22.0-26.0); ABG TOTAL CO2 25.1 MMOL/L (23.0-31.0); ABG pH (ARTERIAL) 7.299 UNITS (7.350-7.450)
[2022-11-16 06:12] LABS: CPK CREATINE PHOSPHOKINASE 16 U/L (46-171); LDH LACTATE DEHYDROGENASE 251 U/L (120-246)
[2022-11-16 06:18] LABS: ALBUMIN 2.7 G/DL (3.2-5.2); ALKALINE PHOSPHATASE 144 U/L (46-116); ALT/SGPT 23 U/L (7.0-40); AST/SGOT 14 U/L (<34); BILIRUBIN,TOTAL 0.4 MG/DL (0.3-1.2); BLOOD UREA NITROGEN 49 MG/DL (9-23); CALCIUM LEVEL 8.4 MG/DL (8.3-10.6); CARBON DIOXIDE LEVEL 27 MMOL/L (20-31); CHLORIDE LEVEL 105 MMOL/L (98-107); CHOLESTEROL LEVEL 127 MG/DL (<200); CREATININE FOR GFR 1.17 MG/DL (0.70-1.30); GLOMERULAR FILTRATION RATE > 60.0 (>49); GLUCOSE, FASTING 183 MG/DL (74-106); PHOSPHORUS LEVEL 2.7 MG/DL (2.4-5.1); POTASSIUM SERUM 3.7 MMOL/L (3.5-5.1); SODIUM LEVEL 143 MMOL/L (136-145); TOTAL PROTEIN 6.8 G/DL (5.7-8.2); TRIGLYCERIDES LEVEL 279 MG/DL (<150)
[2022-11-16] MEDS ORDERED: bisoproloL fumarate 10 MG TAB PO SCH (08:00)
[2022-11-16] MEDS: PANTOPRAZOLE 40MG VIAL IV SCH (08:02)
[2022-11-16] MEDS: ENOXAPARIN 100MG/1ML SYRINGE (J1650 PER 10MG) SC SCH ×2 (08:04→22:01)
[2022-11-16] MEDS: ASPIRIN 81MG ENTERIC TABLET PO SCH (08:04)
[2022-11-16] MEDS: CHLORHEXIDINE GLUCONATE 0.12 % 15ML UDC (PERIDEX ORAL RINSE) MT SCH ×2 (08:13→22:01)
[2022-11-16 08:36] LABS: ACETONE/KETONE 1.93 MMOL/L (0.02-0.27)
[2022-11-16 08:40] LABS: ABG BASE EXCESS 0.3 (-2.0-2.0); ABG HCO3 27.7 MMOL/L (22.0-26.0); ABG O2 SATURATION 96.1 % (95.0-99.0); ABG PARTIAL PRESSURE CO2 56.2 mmHg (35.0-45.0); ABG PARTIAL PRESSURE O2 80.4 mmHg (75.0-100.0); ABG STANDARD HCO3 24.7 MMOL/L. (22.0-26.0); ABG TOTAL CO2 29.4 MMOL/L (23.0-31.0)
[2022-11-16] MEDS ORDERED: METOPROLOL 5 MG/5 ML VIAL IV STA (08:40)
[2022-11-16] MEDS ORDERED: METOPROLOL 5 MG/5 ML VIAL As Ordered ONE (08:40)
[2022-11-16] MEDS ORDERED: FENTANYL DRIP LOCK BOX KEY 1 EACH XX PRN (08:55)
[2022-11-16] MEDS ORDERED: fentaNYL 100 MCG/2 ML INJECTION IV PRN (08:55)
[2022-11-16] MEDS ORDERED: fentaNYL CITRATE/NaCl 1,000 MCG in IV 1 EA IV SCH (08:55)
[2022-11-16 09:00] LABS: DIGOXIN LEVEL 0.6 NG/ML (0.8-2.0)
[2022-11-16] MEDS ORDERED: DIGOXIN 0.125 MG TAB PO SCH (09:00)
[2022-11-16] MEDS ORDERED: AMIODARONE HCL 150 MG in IV 1 EA IV ONE ×2 (09:05→11:40)
[2022-11-16] MEDS ORDERED: AMIODARONE HCL 150 MG/100 ML PREMIXED BAG (NEXTERONE) As Ordered ONE (09:06)
[2022-11-16] MEDS ORDERED: AMIODARONE HCL 360 MG in IV 1 EA IV SCH ×2 (09:15→15:15)
[2022-11-16] MEDS ORDERED: POTASSIUM CHLORIDE 10MEQ SR TABLET PO ONE (11:40)
[2022-11-16] MEDS: SENNA 8.6 MG TAB (SENOKOT) PO SCH (11:49)
[2022-11-16] MEDS: AMIODARONE 200 MG TAB (PACERONE) NG SCH ×3 (12:04→23:55)
[2022-11-16] MEDS ORDERED: AMIODARONE HCL 150 MG in IV 1 EA IV STA ×3 (13:45→15:38)
[2022-11-16] MEDS: LEVALBUTEROL HFA 45MCG/ACT 15GM INHALER INH SCH ×2 (20:00→23:26)
[2022-11-16] MEDS ORDERED: LEVALBUTEROL HFA 45MCG/ACT 15GM INHALER INH PRN (20:20)
[2022-11-17] VITALS (21 sets, daily range): BP systolic 112–145; BP diastolic 74–105; O2SAT 92–95
[2022-11-17] MEDS: methylPREDNISolone 125MG 2ML VIAL IV SCH (00:11)
[2022-11-17] MEDS: LEVALBUTEROL HFA 45MCG/ACT 15GM INHALER INH SCH ×2 (03:31→07:31)
[2022-11-17 04:54] LABS: HEMATOCRIT 40.3 % (42.0-52.0); HEMOGLOBIN 12.2 g/dl (13.5-17.5); MEAN CORPUSCULAR HEMOGLOBIN 28.5 pg (27.0-33.0); MEAN CORPUSCULAR HGB CONC 30.3 g/dl (32.0-36.5); MEAN CORPUSCULAR VOLUME 94.2 fl (80.0-96.0); PLATELET COUNT, AUTOMATED 242 10^3/uL (150-450); RED BLOOD COUNT 4.28 10^6/uL (4.30-6.10); WHITE BLOOD COUNT 6.9 10^3/uL (4.0-10.0)
[2022-11-17 05:35] LABS: LDH LACTATE DEHYDROGENASE 320 U/L (120-246)
[2022-11-17 05:36] LABS: ALBUMIN 2.5 G/DL (3.2-5.2); ALKALINE PHOSPHATASE 146 U/L (46-116); ALT/SGPT < 9 U/L (7.0-40); AST/SGOT 16 U/L (<34); BILIRUBIN,TOTAL 0.3 MG/DL (0.3-1.2); BLOOD UREA NITROGEN 58 MG/DL (9-23); CALCIUM LEVEL 7.8 MG/DL (8.3-10.6); CARBON DIOXIDE LEVEL 31 MMOL/L (20-31); CHLORIDE LEVEL 104 MMOL/L (98-107); CHOLESTEROL LEVEL 146 MG/DL (<200); CREATININE FOR GFR 1.13 MG/DL (0.70-1.30); DIGOXIN LEVEL 0.7 NG/ML (0.8-2.0); GLOMERULAR FILTRATION RATE > 60.0 (>49); GLUCOSE, FASTING 193 MG/DL (74-106); PHOSPHORUS LEVEL 2.4 MG/DL (2.4-5.1); POTASSIUM SERUM 3.9 MMOL/L (3.5-5.1); SODIUM LEVEL 143 MMOL/L (136-145); TOTAL PROTEIN 6.5 G/DL (5.7-8.2); TRIGLYCERIDES LEVEL 316 MG/DL (<150)
[2022-11-17 05:45] LABS: CPK CREATINE PHOSPHOKINASE 20 U/L (46-171)
[2022-11-17 05:51] LABS: ABG BASE EXCESS 4.5 (-2.0-2.0); ABG HCO3 31.6 MMOL/L (22.0-26.0); ABG O2 SATURATION 95.6 % (95.0-99.0); ABG PARTIAL PRESSURE CO2 58.3 mmHg (35.0-45.0); ABG PARTIAL PRESSURE O2 77.7 mmHg (75.0-100.0); ABG STANDARD HCO3 28.5 MMOL/L. (22.0-26.0); ABG TOTAL CO2 33.4 MMOL/L (23.0-31.0); ABG pH (ARTERIAL) 7.352 UNITS (7.350-7.450)
[2022-11-17] MEDS: PIPERACILLIN/TAZOBACTAM SOD 4.5 GM in D5W MINI-BAG PLUS 50 ML IV SCH ×4 (06:01→23:32)
[2022-11-17] MEDS: AMIODARONE 200 MG TAB (PACERONE) NG SCH ×4 (06:02→23:32)
[2022-11-17] MEDS ORDERED: LEVALBUTEROL 1.25MG 0.5ML CONCENTRATE NEB INH SCH (08:00)
[2022-11-17] MEDS: CHLORHEXIDINE GLUCONATE 0.12 % 15ML UDC (PERIDEX ORAL RINSE) MT SCH (08:44)
[2022-11-17] MEDS: ENOXAPARIN 100MG/1ML SYRINGE (J1650 PER 10MG) SC SCH (08:55)
[2022-11-17] MEDS: PANTOPRAZOLE 40MG VIAL IV SCH (08:55)
[2022-11-17] MEDS ORDERED: LEVALBUTEROL 1.25MG 0.5ML CONCENTRATE NEB INH PRN (09:10)
[2022-11-17] MEDS ORDERED: LEVALBUTEROL HCL 0.63 MG/3 ML INH PRN (09:15)
[2022-11-17] MEDS: LEVALBUTEROL HCL 0.63 MG/3 ML INH SCH ×5 (09:16→23:13)
[2022-11-17] MEDS: ASPIRIN 81MG ENTERIC TABLET PO SCH (09:55)
[2022-11-17] MEDS: SENNA 8.6 MG TAB (SENOKOT) PO SCH (09:55)
[2022-11-17] MEDS: bisoproloL fumarate 10 MG TAB PO SCH ×2 (09:56→19:46)
[2022-11-17] MEDS: methylPREDNISolone 40MG 1ML VIAL IV SCH ×2 (09:56→16:06)
[2022-11-17] MEDS: ACETAMINOPHEN TAB 650MG DOSE (2X325MG) PO PRN ×2 (10:50→19:45)
[2022-11-17] MEDS ORDERED: LIDOCAINE 5% (LIDODERM) PATCH TD PRN (16:30)
[2022-11-17] MEDS: ADVAIR HFA 230/21MCG INHALER INH SCH (18:46)
[2022-11-17] MEDS: guaiFENesin ER 600 MG TAB PO PRN (19:45)
[2022-11-17] MEDS: ENTRESTO 24-26MG TABLET (SACUBITRIL/VALSARTAN) PO SCH (20:19)
[2022-11-17] MEDS ORDERED: APIXABAN 5 MG TAB (ELIQUIS) PO SCH (21:00)
[2022-11-17] MEDS ORDERED: ENTRESTO 49-51MG TABLET (SACUBITRIL/VALSARTAN) PO SCH (21:00)
[2022-11-18] VITALS: BP 140/96
[2022-11-18] MEDS: methylPREDNISolone 40MG 1ML VIAL IV SCH ×3 (01:37→17:15)
[2022-11-18] MEDS: LEVALBUTEROL HCL 0.63 MG/3 ML INH SCH ×6 (03:12→23:10)
[2022-11-18 04:00] VITALS: BP 111/79
[2022-11-18] MEDS: ACETAMINOPHEN TAB 650MG DOSE (2X325MG) PO PRN (04:17)
[2022-11-18 04:22] LABS: HEMATOCRIT 42.5 % (42.0-52.0); MEAN CORPUSCULAR HEMOGLOBIN 28.6 pg (27.0-33.0); MEAN CORPUSCULAR HGB CONC 30.6 g/dl (32.0-36.5); MEAN CORPUSCULAR VOLUME 93.4 fl (80.0-96.0); PLATELET COUNT, AUTOMATED 255 10^3/uL (150-450); RED BLOOD COUNT 4.55 10^6/uL (4.30-6.10); WHITE BLOOD COUNT 9.2 10^3/uL (4.0-10.0)
[2022-11-18 05:01] LABS: LYMPHOCYTES 4 % (16-44); MONOCYTES 2 % (0-5); MYELOCYTES 3 % (0-0); NEUTROPHILS 91 % (28-66)
[2022-11-18 05:02] LABS: ALBUMIN 2.5 G/DL (3.2-5.2); ALKALINE PHOSPHATASE 154 U/L (46-116); ALT/SGPT 14 U/L (7.0-40); AST/SGOT 19 U/L (<34); BILIRUBIN,TOTAL 0.5 MG/DL (0.3-1.2); BLOOD UREA NITROGEN 52 MG/DL (9-23); CALCIUM LEVEL 7.9 MG/DL (8.3-10.6); CARBON DIOXIDE LEVEL 31 MMOL/L (20-31); CHLORIDE LEVEL 104 MMOL/L (98-107); CREATININE FOR GFR 0.96 MG/DL (0.70-1.30); GLOMERULAR FILTRATION RATE > 60.0 (>49); GLUCOSE, FASTING 199 MG/DL (74-106); MAGNESIUM LEVEL 2.1 MG/DL (1.8-2.4); POTASSIUM SERUM 3.8 MMOL/L (3.5-5.1); SODIUM LEVEL 142 MMOL/L (136-145); TOTAL PROTEIN 6.3 G/DL (5.7-8.2)
[2022-11-18 05:03] LABS: PLATELET ESTIMATE NORMAL (NORMAL); POLYCHROMASIA 1+
[2022-11-18] MEDS: AMIODARONE 200 MG TAB (PACERONE) NG SCH ×3 (05:48→17:15)
[2022-11-18] MEDS: TIOTROPIUM INHALER/CAPSULE (SPIRIVA) INH SCH (07:19)
[2022-11-18] MEDS: ADVAIR HFA 230/21MCG INHALER INH SCH ×2 (07:19→19:23)
[2022-11-18] MEDS: cefTRIAXone SOD 2 GM in D5W MINI-BAG PLUS 50 ML IV SCH (07:57)
[2022-11-18] MEDS: PANTOPRAZOLE 40MG TAB (PROTONIX) PO SCH (07:58)
[2022-11-18] MEDS: ASPIRIN 81MG ENTERIC TABLET PO SCH (07:58)
[2022-11-18] MEDS: bisoproloL fumarate 10 MG TAB PO SCH ×2 (08:00→20:30)
[2022-11-18] MEDS: SENNA 8.6 MG TAB (SENOKOT) PO SCH (08:00)
[2022-11-18] MEDS: guaiFENesin ER 600 MG TAB PO PRN (08:00)
[2022-11-18] MEDS: ENTRESTO 24-26MG TABLET (SACUBITRIL/VALSARTAN) PO SCH ×2 (08:00→20:30)
[2022-11-18] MEDS: NICOTINE 21MG/24HR 1 EA TRANSDERMAL TD SCH (08:03)
[2022-11-18 09:00] VITALS: BP 112/79
[2022-11-18 11:30] VITALS: BP 126/79
[2022-11-18 14:40] LABS: HEMATOCRIT 44.9 % (42.0-52.0); HEMOGLOBIN 13.8 g/dl (13.5-17.5)
[2022-11-18 15:09] LABS: BODY FLUID CULTURE Not indicated. (.); LEGIONELLA ANTIGEN URINE Negative (Negative); ORGANISM ID Not indicated. (.); SPECIMEN SOURCE Urine (.); URINE STREP PNEUMONIAE ANTIGEN Negative (Negative)
[2022-11-18 17:39] LABS: APPEARANCE, URINE CLEAR (CLEAR); BACTERIA, URINE AUTO NEGATIVE (NEGATIVE); BILIRUBIN, URINE AUTO NEGATIVE (NEGATIVE); BLOOD, URINE BLOOD 1+ (NEGATIVE); COLOR, URINE YELLOW (YELLOW); GLUCOSE, URINE (UA) AUTO 2+ mg/dL (NEGATIVE); KETONE, URINE AUTO TRACE mg/dL (NEGATIVE); LEUKOCYTE ESTERASE, URINE AUTO NEGATIVE (NEGATIVE); NITRITE, URINE AUTO NEGATIVE (NEGATIVE); PROTEIN, URINE AUTO 1+ mg/dL (NEGATIVE); RBC, URINE AUTO 13 /HPF (0-3); SPECIFIC GRAVITY URINE AUTO 1.027 (1.002-1.035); SQUAMOUS EPITHELIAL CELL UR AU 1 /HPF (0-6); UROBILINOGEN, URINE AUTO 0.2 mg/dL (0.0-2.0); WBC, URINE AUTO 1 /HPF (0-3)
[2022-11-18 18:30] VITALS: BP 110/66
[2022-11-18 20:00] VITALS: BP 118/78
[2022-11-19] VITALS: BP 110/72
[2022-11-19] MEDS: methylPREDNISolone 40MG 1ML VIAL IV SCH ×2 (00:26→09:04)
[2022-11-19] MEDS: AMIODARONE 200 MG TAB (PACERONE) NG SCH ×3 (00:26→12:29)
[2022-11-19] MEDS: ACETAMINOPHEN TAB 650MG DOSE (2X325MG) PO PRN (00:28)
[2022-11-19] MEDS: LEVALBUTEROL HCL 0.63 MG/3 ML INH SCH ×4 (03:04→15:08)
[2022-11-19 04:00] VITALS: BP 121/79
[2022-11-19 04:28] LABS: HEMATOCRIT 43.7 % (42.0-52.0); HEMOGLOBIN 13.2 g/dl (13.5-17.5); MEAN CORPUSCULAR HEMOGLOBIN 28.1 pg (27.0-33.0); MEAN CORPUSCULAR HGB CONC 30.2 g/dl (32.0-36.5); PLATELET COUNT, AUTOMATED 257 10^3/uL (150-450); WHITE BLOOD COUNT 9.1 10^3/uL (4.0-10.0)
[2022-11-19 04:59] LABS: LYMPHOCYTES 8 % (16-44); METAMYELOCYTES 2 % (0-0); MONOCYTES 3 % (0-5); NEUTROPHILS 86 % (28-66); PLASMA CELL 1 % (0-0)
[2022-11-19 05:00] LABS: HYPOCHROMASIA 1+; PLATELET ESTIMATE NORMAL (NORMAL)
[2022-11-19 05:01] LABS: POLYCHROMASIA 1+
[2022-11-19 05:09] LABS: ALBUMIN 2.4 G/DL (3.2-5.2); ALKALINE PHOSPHATASE 126 U/L (46-116); ALT/SGPT 11 U/L (7.0-40); AST/SGOT 9 U/L (<34); BILIRUBIN,TOTAL 0.4 MG/DL (0.3-1.2); BLOOD UREA NITROGEN 42 MG/DL (9-23); CALCIUM LEVEL 7.8 MG/DL (8.3-10.6); CARBON DIOXIDE LEVEL 34 MMOL/L (20-31); CHLORIDE LEVEL 104 MMOL/L (98-107); CREATININE FOR GFR 0.87 MG/DL (0.70-1.30); GLOMERULAR FILTRATION RATE > 60.0 (>49); GLUCOSE, FASTING 222 MG/DL (74-106); POTASSIUM SERUM 4.1 MMOL/L (3.5-5.1); SODIUM LEVEL 141 MMOL/L (136-145); TOTAL PROTEIN 5.8 G/DL (5.7-8.2)
[2022-11-19] MEDS: cefTRIAXone SOD 2 GM in D5W MINI-BAG PLUS 50 ML IV SCH (07:20)
[2022-11-19] MEDS: TIOTROPIUM INHALER/CAPSULE (SPIRIVA) INH SCH (07:32)
[2022-11-19] MEDS: ADVAIR HFA 230/21MCG INHALER INH SCH (07:33)
[2022-11-19 08:00] VITALS: BP 131/90
[2022-11-19] MEDS ORDERED: APIXABAN 5 MG TAB (ELIQUIS) PO SCH (09:00)
[2022-11-19] MEDS: ASPIRIN 81MG ENTERIC TABLET PO SCH (09:03)
[2022-11-19 09:04] VITALS: BP 131/90
[2022-11-19] MEDS: bisoproloL fumarate 10 MG TAB PO SCH (09:04)
[2022-11-19] MEDS: ENTRESTO 24-26MG TABLET (SACUBITRIL/VALSARTAN) PO SCH (09:04)
[2022-11-19] MEDS: PANTOPRAZOLE 40MG TAB (PROTONIX) PO SCH (09:04)
[2022-11-19] MEDS: SENNA 8.6 MG TAB (SENOKOT) PO SCH (09:04)
[2022-11-19] MEDS: NICOTINE 21MG/24HR 1 EA TRANSDERMAL TD SCH (09:05)
[2022-11-19] MEDS ORDERED: ENTR1TAB PO ×2 (11:59→12:58)
[2022-11-19] MEDS ORDERED: PRED20TA PO ×2 (11:59→13:01)
[2022-11-19] MEDS ORDERED: AMIO200T49 OR ×2 (11:59→12:58)
[2022-11-19] MEDS ORDERED: CEFD300C41 PO (11:59)
[2022-11-19] MEDS ORDERED: predniSONE 20 MG TAB PO ONE (12:00)
[2022-11-19] MEDS ORDERED: PRED10TA2 PO (12:58)
== END 2022-11-19 16:46 | disposition home health service (06) | DRG 208 ==
LOC: M ED 13:16 → M ICU 16:34 → ENRESERV 16:49
PROVIDERS: ADMIT Internal Medicine Pulmonary Disease; ATTEND Internal Medicine
PROC: 5A1935Z Respiratory Ventilation, Less than 24 Consecutive Hours (ICD-10-PCS; principal; 2022-11-15)
PROC: 0BH17EZ Insertion of Endotracheal Airway into Trachea, Via Natural or Artificial Opening (ICD-10-PCS; 2022-11-15)
PROC: B246ZZZ Ultrasonography of Right and Left Heart (ICD-10-PCS; 2022-11-17)
DX: J15.6 Pneumonia due to other Gram-negative bacteria (principal); G93.41 Metabolic encephalopathy; J96.22 Acute and chronic respiratory failure with hypercapnia; J96.21 Acute and chronic respiratory failure with hypoxia; I26.99 Other pulmonary embolism without acute cor pulmonale; J44.1 Chronic obstructive pulmonary disease with (acute) exacerbation; J44.0 Chronic obstructive pulmonary disease with (acute) lower respiratory infection; I50.42 Chronic combined systolic (congestive) and diastolic (congestive) heart failure; E87.20 Acidosis, unspecified; I27.82 Chronic pulmonary embolism; I47.1 Supraventricular tachycardia; N17.9 Acute kidney failure, unspecified; I48.0 Paroxysmal atrial fibrillation; F17.210 Nicotine dependence, cigarettes, uncomplicated; R91.1 Solitary pulmonary nodule; J84.10 Pulmonary fibrosis, unspecified; Z99.81 Dependence on supplemental oxygen; G47.33 Obstructive sleep apnea (adult) (pediatric); I25.10 Atherosclerotic heart disease of native coronary artery without angina pectoris; K21.9 Gastro-esophageal reflux disease without esophagitis; Z66 Do not resuscitate; I25.2 Old myocardial infarction; I27.81 Cor pulmonale (chronic); E66.9 Obesity, unspecified; J12.3 Human metapneumovirus pneumonia; I11.0 Hypertensive heart disease with heart failure; J14 Pneumonia due to Hemophilus influenzae; R31.0 Gross hematuria; Z79.01 Long term (current) use of anticoagulants; Z79.82 Long term (current) use of aspirin; Z79.899 Other long term (current) drug therapy; Z68.28 Body mass index [BMI] 28.0-28.9, adult

== ENCOUNTER 2022-12-02 15:42 | Inpatient (IN) | payer MEDICARE, OTHER ==
[~2022-12-02] VITALS: Ht 182.9 cm; Wt 101.5 kg
[~2022-12-02 15:42] MED LIST changes: -AMIO200T49 PO; -SPIR-10 PO
[2022-12-02 16:44] LABS: BASO % 0.5 % (0.0-1.0); EOS # 0.1 10^3/uL (0.0-0.5); EOS % 0.9 % (0.0-3.0); HEMATOCRIT 40.6 % (42.0-52.0); HEMOGLOBIN 12.7 g/dl (13.5-17.5); LYMPH # 1.7 10^3/uL (1.5-5.0); LYMPH % 26.3 % (24.0-44.0); MEAN CORPUSCULAR HEMOGLOBIN 29.4 pg (27.0-33.0); MEAN CORPUSCULAR HGB CONC 31.3 g/dl (32.0-36.5); MONO # 0.4 10^3/uL (0.0-0.8); MONO % 5.5 % (2.0-8.0); NEUTROPHILS # 4.2 10^3/uL (1.5-8.5); NEUTROPHILS % 66.3 % (36.0-66.0); PLATELET COUNT, AUTOMATED 228 10^3/uL (150-450); RED BLOOD COUNT 4.32 10^6/uL (4.30-6.10); WHITE BLOOD COUNT 6.4 10^3/uL (4.0-10.0)
[2022-12-02] MEDS ORDERED: IPRATROPIUM 0.5MG/ALBUTEROL 2.5MG INH SOL UD 3ML (DUONEB) NEB ONE (16:45)
[2022-12-02 16:51] LABS: ABG BASE EXCESS 5.8 (-2.0-2.0); ABG HCO3 32.3 MMOL/L (22.0-26.0); ABG O2 SATURATION 98.5 % (95.0-99.0); ABG PARTIAL PRESSURE CO2 55.1 mmHg (35.0-45.0); ABG PARTIAL PRESSURE O2 111.1 mmHg (75.0-100.0); ABG STANDARD HCO3 29.7 MMOL/L. (22.0-26.0); ABG pH (ARTERIAL) 7.386 UNITS (7.350-7.450)
[2022-12-02 17:10] LABS: LIPASE 22 U/L (12-53)
[2022-12-02 17:12] LABS: DIGOXIN LEVEL 0.2 NG/ML (0.8-2.0)
[2022-12-02 17:13] LABS: ALBUMIN 2.9 G/DL (3.2-5.2); ALKALINE PHOSPHATASE 73 U/L (46-116); ALT/SGPT 10 U/L (7.0-40); AST/SGOT 17 U/L (<34); BILIRUBIN,DIRECT 0.2 MG/DL (<0.4); BILIRUBIN,TOTAL 0.8 MG/DL (0.3-1.2); BLOOD UREA NITROGEN 18 MG/DL (9-23); CALCIUM LEVEL 8.1 MG/DL (8.3-10.6); CARBON DIOXIDE LEVEL 31 MMOL/L (20-31); CHLORIDE LEVEL 105 MMOL/L (98-107); CK-MB VALUE MASS 2.7 NG/ML (<3.6); CREATININE FOR GFR 0.88 MG/DL (0.70-1.30); GLOMERULAR FILTRATION RATE > 60.0 (>49); GLUCOSE, FASTING 80 MG/DL (74-106); POTASSIUM SERUM 3.9 MMOL/L (3.5-5.1); SODIUM LEVEL 141 MMOL/L (136-145); TOTAL PROTEIN 5.7 G/DL (5.7-8.2)
[2022-12-02 17:14] LABS: THYROID STIMULATING HORMONE 1.248 uIU/ML (0.55-4.78)
[2022-12-02 17:15] LABS: CPK CREATINE PHOSPHOKINASE 47 U/L (46-171); MB/CK RELATIVE INDEX 5.74 (< OR =4)
[2022-12-02 18:01] LABS: CK-MB VALUE MASS 2.4 NG/ML (<3.6)
[2022-12-02 18:06] LABS: MB/CK RELATIVE INDEX 4.89 (< OR =4)
[2022-12-02] MEDS ORDERED: ACETAMINOPHEN TAB 650MG DOSE (2X325MG) PO PRN (18:50)
[2022-12-02] MEDS ORDERED: NS 500 ML IV ONE (18:50)
[2022-12-02] MEDS ORDERED: guaiFENesin ER 600 MG TAB PO PRN (19:05)
[2022-12-02] MEDS ORDERED: NS 250 ML IV SCH (19:10)
[2022-12-02] MEDS ORDERED: AMIO200T49 PO (19:35)
[2022-12-02] MEDS ORDERED: FURO20TA2 PO (19:35)
[2022-12-02] MEDS ORDERED: IPRA0.00 INH (19:40)
[2022-12-02] MEDS ORDERED: PRED20TA PO (19:40)
[2022-12-02] MEDS ORDERED: ENTR1TAB PO (19:40)
[2022-12-02] MEDS ORDERED: SPIR-10 PO (19:40)
[2022-12-02] MEDS ORDERED: DIGO0.123 PO (19:40)
[2022-12-02] MEDS ORDERED: HOME MED LIST COMPLETE! XX SCH (19:45)
[2022-12-02] MEDS: methylPREDNISolone 40MG 1ML VIAL IV SCH (20:03)
[2022-12-02] MEDS: cefTRIAXone SOD 1 GM in D5W MINI-BAG PLUS 50 ML IV SCH (20:03)
[2022-12-02] MEDS: IPRATROPIUM 0.5MG/ALBUTEROL 2.5MG INH SOL UD 3ML (DUONEB) NEB SCH (20:37)
[2022-12-02] MEDS: BUDESONIDE 0.5 MG/2 ML INHALATION SUSPENSION INH SCH (20:37)
[2022-12-02 20:45] LABS: INR 1.03; PROTHROMBIN TIME 13.7 SECONDS (12.5-14.5)
[2022-12-02 20:46] LABS: PARTIAL THROMBOPLASTIN TIME 31.9 SECONDS (24.8-34.2)
[2022-12-02 21:34] VITALS: BP 112/73; TEMP 98.1; O2SAT 97
[2022-12-02] MEDS ORDERED: ALBUTEROL 90 MCG/ACT 8GM HFA INHALER INH PRN (22:00)
[2022-12-02] MEDS ORDERED: LIDOCAINE 5% (LIDODERM) PATCH TD PRN (22:00)
[2022-12-02] MEDS: ENTRESTO 24-26MG TABLET (SACUBITRIL/VALSARTAN) PO SCH (22:35)
[2022-12-02] MEDS: AMIODARONE 200 MG TAB (PACERONE) PO SCH (22:35)
[2022-12-02] MEDS: APIXABAN 5 MG TAB (ELIQUIS) PO SCH (22:35)
[2022-12-02 23:00] VITALS: O2SAT 96
[2022-12-02 23:05] VITALS: BP 109/67; TEMP 98.2; O2SAT 98
[2022-12-03] VITALS (31 sets, daily range): BP systolic 110–142; BP diastolic 58–88; TEMP 97.4–98.4; O2SAT 87–99
[2022-12-03] MEDS: IPRATROPIUM 0.5MG/ALBUTEROL 2.5MG INH SOL UD 3ML (DUONEB) NEB SCH ×4 (02:00→19:32)
[2022-12-03 06:27] LABS: HEMATOCRIT 41.9 % (42.0-52.0); HEMOGLOBIN 12.4 g/dl (13.5-17.5); MEAN CORPUSCULAR HEMOGLOBIN 28.4 pg (27.0-33.0); MEAN CORPUSCULAR HGB CONC 29.6 g/dl (32.0-36.5); MEAN CORPUSCULAR VOLUME 95.9 fl (80.0-96.0); PLATELET COUNT, AUTOMATED 192 10^3/uL (150-450); RED BLOOD COUNT 4.37 10^6/uL (4.30-6.10); WHITE BLOOD COUNT 4.1 10^3/uL (4.0-10.0)
[2022-12-03 06:53] LABS: ALBUMIN 2.9 G/DL (3.2-5.2); ALKALINE PHOSPHATASE 76 U/L (46-116); ALT/SGPT < 9 U/L (7.0-40); AST/SGOT 11 U/L (<34); BILIRUBIN,TOTAL 0.5 MG/DL (0.3-1.2); BLOOD UREA NITROGEN 17 MG/DL (9-23); CARBON DIOXIDE LEVEL 36 MMOL/L (20-31); CHLORIDE LEVEL 104 MMOL/L (98-107); CREATININE FOR GFR 0.94 MG/DL (0.70-1.30); GLOMERULAR FILTRATION RATE > 60.0 (>49); GLUCOSE, FASTING 145 MG/DL (74-106); POTASSIUM SERUM 4.8 MMOL/L (3.5-5.1); SODIUM LEVEL 142 MMOL/L (136-145); TOTAL PROTEIN 5.8 G/DL (5.7-8.2)
[2022-12-03] MEDS: BUDESONIDE 0.5 MG/2 ML INHALATION SUSPENSION INH SCH ×2 (07:21→19:32)
[2022-12-03] MEDS: methylPREDNISolone 40MG 1ML VIAL IV SCH ×2 (08:33→20:53)
[2022-12-03] MEDS: SPIRONOLACTONE 12.5MG PER 1/2 TABLET PO SCH (08:34)
[2022-12-03] MEDS: AMIODARONE 200 MG TAB (PACERONE) PO SCH ×3 (08:34→20:54)
[2022-12-03] MEDS: APIXABAN 5 MG TAB (ELIQUIS) PO SCH ×2 (08:34→20:54)
[2022-12-03] MEDS: ASPIRIN 81MG ENTERIC TABLET PO SCH (08:34)
[2022-12-03] MEDS: ENTRESTO 24-26MG TABLET (SACUBITRIL/VALSARTAN) PO SCH ×2 (08:34→20:53)
[2022-12-03] MEDS ORDERED: EMPAGLIFLOZIN 10 MG PO SCH (09:00)
[2022-12-03] MEDS ORDERED: DAPAGLIFLOZIN PROPANEDIOL 10MG TABLET (FARXIGA) PO SCH (09:00)
[2022-12-03] MEDS: bisoproloL fumarate 10 MG TAB PO SCH (09:52)
[2022-12-03] MEDS: cefTRIAXone SOD 1 GM in D5W MINI-BAG PLUS 50 ML IV SCH (20:53)
[2022-12-04] VITALS (12 sets, daily range): BP systolic 124–129; BP diastolic 86; TEMP 98–98.5; O2SAT 87–98
[2022-12-04] MEDS: IPRATROPIUM 0.5MG/ALBUTEROL 2.5MG INH SOL UD 3ML (DUONEB) NEB SCH ×2 (00:56→07:30)
[2022-12-04 04:22] LABS: HEMATOCRIT 40.7 % (42.0-52.0); HEMOGLOBIN 12.4 g/dl (13.5-17.5); MEAN CORPUSCULAR HEMOGLOBIN 29.3 pg (27.0-33.0); MEAN CORPUSCULAR HGB CONC 30.5 g/dl (32.0-36.5); MEAN CORPUSCULAR VOLUME 96.2 fl (80.0-96.0); PLATELET COUNT, AUTOMATED 187 10^3/uL (150-450); RED BLOOD COUNT 4.23 10^6/uL (4.30-6.10); WHITE BLOOD COUNT 7.2 10^3/uL (4.0-10.0)
[2022-12-04 04:41] LABS: BLOOD UREA NITROGEN 20 MG/DL (9-23); CALCIUM LEVEL 8.3 MG/DL (8.3-10.6); CARBON DIOXIDE LEVEL 36 MMOL/L (20-31); CHLORIDE LEVEL 102 MMOL/L (98-107); CREATININE FOR GFR 0.83 MG/DL (0.70-1.30); GLOMERULAR FILTRATION RATE > 60.0 (>49); GLUCOSE, FASTING 162 MG/DL (74-106); POTASSIUM SERUM 4.8 MMOL/L (3.5-5.1); SODIUM LEVEL 140 MMOL/L (136-145)
[2022-12-04] MEDS: BUDESONIDE 0.5 MG/2 ML INHALATION SUSPENSION INH SCH (07:30)
[2022-12-04] MEDS: methylPREDNISolone 40MG 1ML VIAL IV SCH (09:24)
[2022-12-04] MEDS: SPIRONOLACTONE 12.5MG PER 1/2 TABLET PO SCH (09:24)
[2022-12-04] MEDS: AMIODARONE 200 MG TAB (PACERONE) PO SCH (09:25)
[2022-12-04] MEDS: ASPIRIN 81MG ENTERIC TABLET PO SCH (09:25)
[2022-12-04] MEDS: bisoproloL fumarate 10 MG TAB PO SCH (09:25)
[2022-12-04] MEDS: ENTRESTO 24-26MG TABLET (SACUBITRIL/VALSARTAN) PO SCH (09:25)
[2022-12-04] MEDS: APIXABAN 5 MG TAB (ELIQUIS) PO SCH (09:25)
[2022-12-04] MEDS ORDERED: PRED10TA2 PO (09:51)
== END 2022-12-04 12:11 | disposition home health service (06) | DRG 191 ==
LOC: M ED 15:42 → M ED INP 18:47 → M PCU 21:32
PROVIDERS: ADMIT Family Medicine; ATTEND Student in an Organized Health Care Education/Training Program
DX: J44.1 Chronic obstructive pulmonary disease with (acute) exacerbation (principal); J96.11 Chronic respiratory failure with hypoxia; J96.12 Chronic respiratory failure with hypercapnia; I50.22 Chronic systolic (congestive) heart failure; I48.0 Paroxysmal atrial fibrillation; I25.10 Atherosclerotic heart disease of native coronary artery without angina pectoris; E78.5 Hyperlipidemia, unspecified; M19.90 Unspecified osteoarthritis, unspecified site; G47.33 Obstructive sleep apnea (adult) (pediatric); R91.1 Solitary pulmonary nodule; K21.9 Gastro-esophageal reflux disease without esophagitis; F17.210 Nicotine dependence, cigarettes, uncomplicated; B34.8 Other viral infections of unspecified site; Z66 Do not resuscitate; Z79.82 Long term (current) use of aspirin; Z79.01 Long term (current) use of anticoagulants; Z79.899 Other long term (current) drug therapy; Z91.013 Allergy to seafood; Z99.81 Dependence on supplemental oxygen; Z86.711 Personal history of pulmonary embolism

== ENCOUNTER → 2022-12-02 | Outpatient (REF) | payer MEDICARE, MEDICAID ==
[~2022-12-02] MED LIST changes: +AMIO200T49 OR; +AMIO200T49 PO; +CEFD300C41 PO; +CHLO1TAB35 PO; -NALOXONE 2MG/2ML SYRINGE IV STA; +SPIR-10 PO
== END ==
LOC: M SFHCCLAY 14:40
PROVIDERS: ATTEND Nurse Practitioner Family
DX: J18.9 Pneumonia, unspecified organism (principal)

== ENCOUNTER → 2023-04-26 | Outpatient (CLI) | payer MEDICARE, MEDICAID ==
[~2023-04-26] MED LIST changes: +AMIO200T49 PO; -CEFD300C41 PO; +CEFD300C42 PO; +SPIR-10 PO
[2023-04-26 13:26] LABS: ABG BASE EXCESS 6.3 (-2.0-2.0); ABG HCO3 31.7 MMOL/L (22.0-26.0); ABG O2 SATURATION 98.1 % (95.0-99.0); ABG PARTIAL PRESSURE CO2 48.3 mmHg (35.0-45.0); ABG STANDARD HCO3 30.2 MMOL/L. (22.0-26.0); ABG TOTAL CO2 33.2 MMOL/L (23.0-31.0); ABG pH (ARTERIAL) 7.435 UNITS (7.350-7.450)
== END ==
LOC: M CARPUL 12:54
PROVIDERS: ATTEND Internal Medicine Pulmonary Disease
DX: J43.1 Panlobular emphysema (principal)

== ENCOUNTER → 2023-05-24 | Outpatient (CLI) | payer MEDICAID, MEDICARE, OTHER ==
[~2023-05-24] MED LIST changes: +CEFD1CAP9 PO; -CEFD300C42 PO
[2023-05-24 13:02] LABS: ABG BASE EXCESS 4.5 (-2.0-2.0); ABG HCO3 29.6 MMOL/L (22.0-26.0); ABG O2 SATURATION 95.6 % (95.0-99.0); ABG PARTIAL PRESSURE CO2 45.6 mmHg (35.0-45.0); ABG PARTIAL PRESSURE O2 68.8 mmHg (75.0-100.0); ABG STANDARD HCO3 28.4 MMOL/L. (22.0-26.0)
== END ==
LOC: M CARPUL 12:47
PROVIDERS: ATTEND Internal Medicine Pulmonary Disease
DX: J43.1 Panlobular emphysema (principal)

== ENCOUNTER 2023-10-31 13:34 | Inpatient (IN) | payer MEDICARE, OTHER ==
[~2023-10-31] VITALS: Ht 182.9 cm; Wt 99.1 kg
[2023-10-31] MEDS: methylPREDNISolone 40MG 1ML VIAL IV SCH (03:00)
[2023-10-31 14:23] LABS: BASO % 0.6 % (0.0-1.0); EOS # 0.3 10^3/uL (0.0-0.5); EOS % 4.2 % (0.0-3.0); HEMATOCRIT 42.7 % (42.0-52.0); HEMOGLOBIN 13.8 g/dl (13.5-17.5); LYMPH % 15.6 % (24.0-44.0); MEAN CORPUSCULAR HEMOGLOBIN 31.4 pg (27.0-33.0); MEAN CORPUSCULAR HGB CONC 32.3 g/dl (32.0-36.5); MONO # 0.3 10^3/uL (0.0-0.8); MONO % 4.5 % (2.0-8.0); NEUTROPHILS # 4.9 10^3/uL (1.5-8.5); NEUTROPHILS % 74.9 % (36.0-66.0); PLATELET COUNT, AUTOMATED 168 10^3/uL (150-450); WHITE BLOOD COUNT 6.5 10^3/uL (4.0-10.0)
[2023-10-31 14:36] LABS: PROTHROMBIN TIME 12.9 SECONDS (12.5-14.5)
[2023-10-31 14:49] LABS: ALBUMIN 3.7 G/DL (3.2-5.2); ALKALINE PHOSPHATASE 96 U/L (46-116); ALT/SGPT 12 U/L (7.0-40); AST/SGOT 13 U/L (<34); BILIRUBIN,DIRECT 0.4 MG/DL (<0.4); BILIRUBIN,TOTAL 1.2 MG/DL (0.3-1.2); BLOOD UREA NITROGEN 17 MG/DL (9-23); CALCIUM LEVEL 8.9 MG/DL (8.3-10.6); CARBON DIOXIDE LEVEL 33 MMOL/L (20-31); CHLORIDE LEVEL 101 MMOL/L (98-107); CK-MB VALUE MASS 2.2 NG/ML (<3.6); CPK CREATINE PHOSPHOKINASE 49 U/L (46-171); CREATININE FOR GFR 0.82 MG/DL (0.70-1.30); GLOMERULAR FILTRATION RATE > 60.0 (>49); GLUCOSE, FASTING 121 MG/DL (74-106); MB/CK RELATIVE INDEX 4.48 (< OR =4); POTASSIUM SERUM 4.3 MMOL/L (3.5-5.1); SODIUM LEVEL 140 MMOL/L (136-145); TOTAL PROTEIN 6.6 G/DL (5.7-8.2)
[2023-10-31 14:53] LABS: THYROID STIMULATING HORMONE 0.593 uIU/ML (0.55-4.78); THYROXINE (T4) 11.6 UG/DL (4.5-10.9)
[2023-10-31] MEDS: ENOXAPARIN 100MG/1ML SYRINGE (J1650 PER 10MG) SC ONE (14:55)
[2023-10-31] MEDS ORDERED: ISOVUE-370 76% 100ML VIAL As Ordered ONE (15:07)
[2023-10-31] MEDS: methylPREDNISolone 125MG 2ML VIAL IV ONE (15:12)
[2023-10-31] MEDS: METOPROLOL TART 50 MG TAB PO ONE (15:13)
[2023-10-31] MEDS: METOPROLOL 5 MG/5 ML VIAL IV STA (15:13)
[2023-10-31 15:22] LABS: FREE T4 1.26 NG/DL (0.89-1.76)
[2023-10-31 15:31] LABS: PROCALCITONIN <0.04 ng/ml
[2023-10-31] MEDS: IPRATROPIUM 0.5MG/ALBUTEROL 2.5MG INH SOL UD 3ML (DUONEB) NEB ONE (15:46)
[2023-10-31] MEDS: METOPROLOL TART 25 MG TABLET PO ONE (16:45)
[2023-10-31] MEDS ORDERED: MAALOX 30 ML SUSP *UDC PO PRN (17:55)
[2023-10-31] MEDS ORDERED: MOM 30ML SUSPENSION UDC PO PRN (17:55)
[2023-10-31] MEDS ORDERED: ASPI81CH33 PO (18:19)
[2023-10-31] MEDS ORDERED: ACET-683 PO (18:19)
[2023-10-31] MEDS ORDERED: HOME MED LIST COMPLETE! XX SCH (18:20)
[2023-10-31 18:48] LABS: VENOUS BASE EXCESS 5.7 (-2.0-2.0); VENOUS HCO3 32.5 MMOL/L (23.0-27.0); VENOUS O2 SATURATION 99.4 % (60.0-80.0); VENOUS PARTIAL PRESSURE CO2 55.6 mmHg (38.0-50.0); VENOUS PARTIAL PRESSURE O2 232.7 mmHg (30.0-50.0); VENOUS PH 7.385 UNITS (7.330-7.430); VENOUS STANDARD HCO3 29.7 MMOL/L; VENOUS TOTAL CO2 34.2 MMOL/L (24.0-28.0)
[2023-10-31 19:14] LABS: CK-MB VALUE MASS 2.2 NG/ML (<3.6)
[2023-10-31 19:16] LABS: MB/CK RELATIVE INDEX 5.23 (< OR =4)
[2023-10-31] MEDS: LEVALBUTEROL 1.25MG 0.5ML CONCENTRATE NEB INH SCH (19:36)
[2023-10-31] MEDS: BUDESONIDE 0.5 MG/2 ML INHALATION SUSPENSION NEB SCH (19:36)
[2023-10-31 21:00] VITALS: BP 134/98; TEMP 97.1; O2SAT 96
[2023-10-31] MEDS: NICOTINE 21MG/24HR 1 EA TRANSDERMAL TD SCH (21:00)
[2023-10-31] MEDS: DOXYCYCLINE HYCLATE 100MG TABLET PO SCH (21:49)
[2023-10-31] MEDS: guaiFENesin ER TABLET 600 MG TAB PO SCH (21:49)
[2023-10-31] MEDS: ENTRESTO 24-26MG TABLET (SACUBITRIL/VALSARTAN) PO SCH (21:49)
[2023-10-31 23:11] VITALS: BP 133/92; TEMP 97.4; O2SAT 97
[2023-11-01 03:28] VITALS: BP 126/84; TEMP 97; O2SAT 95
[2023-11-01 06:19] LABS: BLOOD UREA NITROGEN 18 MG/DL (9-23); CALCIUM LEVEL 8.8 MG/DL (8.3-10.6); CARBON DIOXIDE LEVEL 35 MMOL/L (20-31); CHLORIDE LEVEL 102 MMOL/L (98-107); CREATININE FOR GFR 0.79 MG/DL (0.70-1.30); GLOMERULAR FILTRATION RATE > 60.0 (>49); GLUCOSE, FASTING 176 MG/DL (74-106); POTASSIUM SERUM 4.6 MMOL/L (3.5-5.1); SODIUM LEVEL 141 MMOL/L (136-145)
[2023-11-01 07:45] VITALS: BP 138/90; TEMP 97.3; O2SAT 96
[2023-11-01] MEDS: APIXABAN 5 MG TAB (ELIQUIS) PO SCH (09:32)
[2023-11-01] MEDS: SPIRONOLACTONE 12.5MG PER 1/2 TABLET PO SCH (09:32)
[2023-11-01] MEDS: bisoproloL fumarate 10 MG TAB PO SCH (09:32)
[2023-11-01] MEDS: FUROSEMIDE 10MG PER 1/2 TABLET PO SCH (09:33)
[2023-11-01] MEDS: DIGOXIN 0.125 MG TAB PO SCH (09:33)
[2023-11-01] MEDS: PANTOPRAZOLE 40MG TAB (PROTONIX) PO SCH (09:34)
[2023-11-01] MEDS: ASPIRIN 81MG CHEW TABLET PO SCH (09:34)
[2023-11-01] MEDS: ACETAMINOPHEN TAB 650MG DOSE (2X325MG) PO PRN (09:42)
[2023-11-01 12:06] VITALS: BP 118/78; TEMP 97.8; O2SAT 95
[2023-11-01] MEDS: AZITHROMYCIN 250MG TABLET PO ONE (13:43)
[2023-11-01] MEDS: LEVALBUTEROL 1.25MG 0.5ML CONCENTRATE NEB INH PRN (15:11)
[2023-11-01 16:23] VITALS: BP 109/74; TEMP 98.3; O2SAT 96
[2023-11-01 19:08] VITALS: BP 123/78; TEMP 97.8; O2SAT 96
[2023-11-01] MEDS: IPRATROPIUM 0.02% SOLN 0.5MG 2.5ML NEB INH SCH (19:59)
[2023-11-01 23:14] VITALS: BP 112/62; TEMP 98; O2SAT 96
[2023-11-02 04:04] VITALS: BP 111/78; TEMP 97.6; O2SAT 97
[2023-11-02 05:45] LABS: BASO % 0.1 % (0.0-1.0); HEMOGLOBIN 14.4 g/dl (13.5-17.5); LYMPH # 0.7 10^3/uL (1.5-5.0); MEAN CORPUSCULAR HEMOGLOBIN 30.6 pg (27.0-33.0); MEAN CORPUSCULAR HGB CONC 31.3 g/dl (32.0-36.5); MEAN CORPUSCULAR VOLUME 97.7 fl (80.0-96.0); MONO # 0.5 10^3/uL (0.0-0.8); MONO % 4.6 % (2.0-8.0); NEUTROPHILS # 10.1 10^3/uL (1.5-8.5); NEUTROPHILS % 88.9 % (36.0-66.0); PLATELET COUNT, AUTOMATED 177 10^3/uL (150-450); RED BLOOD COUNT 4.71 10^6/uL (4.30-6.10); WHITE BLOOD COUNT 11.4 10^3/uL (4.0-10.0)
[2023-11-02 06:14] LABS: BLOOD UREA NITROGEN 22 MG/DL (9-23); CALCIUM LEVEL 8.6 MG/DL (8.3-10.6); CARBON DIOXIDE LEVEL 36 MMOL/L (20-31); CHLORIDE LEVEL 103 MMOL/L (98-107); CREATININE FOR GFR 0.92 MG/DL (0.70-1.30); GLOMERULAR FILTRATION RATE > 60.0 (>49); GLUCOSE, FASTING 116 MG/DL (74-106); POTASSIUM SERUM 5.6 MMOL/L (3.5-5.1); SODIUM LEVEL 141 MMOL/L (136-145)
[2023-11-02] MEDS ORDERED: FUROSEMIDE 20MG/2ML VIAL IV ONE (08:00)
[2023-11-02 09:14] VITALS: BP 113/73; TEMP 97.1; O2SAT 96
[2023-11-02] MEDS: AZITHROMYCIN 250MG TABLET PO SCH (09:21)
[2023-11-02 09:58] VITALS: BP 103/72
[2023-11-02] MEDS: FUROSEMIDE 20 MG TAB PO ONE (10:14)
[2023-11-02 12:39] VITALS: TEMP 97.5; O2SAT 97
[2023-11-02 14:52] LABS: BLOOD UREA NITROGEN 24 MG/DL (9-23); CALCIUM LEVEL 8.9 MG/DL (8.3-10.6); CARBON DIOXIDE LEVEL 37 MMOL/L (20-31); CHLORIDE LEVEL 101 MMOL/L (98-107); CREATININE FOR GFR 0.87 MG/DL (0.70-1.30); GLOMERULAR FILTRATION RATE > 60.0 (>49); GLUCOSE, FASTING 91 MG/DL (74-106); POTASSIUM SERUM 5.2 MMOL/L (3.5-5.1); SODIUM LEVEL 142 MMOL/L (136-145)
[2023-11-02 16:47] VITALS: BP 121/79; TEMP 97.4; O2SAT 96
[2023-11-02 19:23] VITALS: BP 107/70; TEMP 98.2; O2SAT 98
[2023-11-02] MEDS: PATIROMER SORBITEX CALCIUM 8.4 GM POWDER PACKET (VELTASSA) PO ONE (20:37)
[2023-11-03 03:46] VITALS: BP 113/81; TEMP 97.2; O2SAT 97
[2023-11-03 06:48] LABS: BLOOD UREA NITROGEN 26 MG/DL (9-23); CALCIUM LEVEL 8.5 MG/DL (8.3-10.6); CARBON DIOXIDE LEVEL 38 MMOL/L (20-31); CHLORIDE LEVEL 103 MMOL/L (98-107); CREATININE FOR GFR 0.99 MG/DL (0.70-1.30); GLOMERULAR FILTRATION RATE > 60.0 (>49); GLUCOSE, FASTING 116 MG/DL (74-106); POTASSIUM SERUM 4.8 MMOL/L (3.5-5.1); SODIUM LEVEL 142 MMOL/L (136-145)
[2023-11-03 07:47] VITALS: BP 138/94; TEMP 97.4; O2SAT 96
[2023-11-03 09:17] VITALS: BP 138/94
[2023-11-03] MEDS ORDERED: AZIT-12 PO (10:19)
[2023-11-03] MEDS ORDERED: PANT40TA29 PO (10:19)
[2023-11-03] MEDS ORDERED: ALBU8.5H INH (10:19)
[2023-11-03] MEDS ORDERED: ENTR1TAB PO (10:19)
[2023-11-03] MEDS ORDERED: DIGO0.123 PO (10:19)
[2023-11-03] MEDS ORDERED: PRED20TA PO (10:19)
[2023-11-03] MEDS ORDERED: MUCI600T31 PO (10:19)
[2023-11-03] MEDS ORDERED: IPRA0.00 INH (10:19)
[2023-11-03] MEDS ORDERED: FURO20TA2 PO (10:19)
[2023-11-03] MEDS ORDERED: BISO10TA14 PO (10:19)
[2023-11-03] MEDS ORDERED: FLUT1INH3 PO (10:19)
[2023-11-03] MEDS ORDERED: ELIQ5TAB PO (10:19)
[2023-11-03] MEDS ORDERED: ALBU2.5V10 NEB (11:13)
[2023-11-03 12:09] VITALS: BP 126/86; TEMP 97.1; O2SAT 94
== END 2023-11-03 16:03 | disposition home or self-care (01) | DRG 191 ==
LOC: EDBD 13:34 → M ED 13:34 → M ED INP 17:55 → M PCU 21:10
PROVIDERS: ADMIT Student in an Organized Health Care Education/Training Program; ATTEND Student in an Organized Health Care Education/Training Program
DX: J44.1 Chronic obstructive pulmonary disease with (acute) exacerbation (principal); I50.22 Chronic systolic (congestive) heart failure; J96.11 Chronic respiratory failure with hypoxia; J96.12 Chronic respiratory failure with hypercapnia; I48.91 Unspecified atrial fibrillation; I25.10 Atherosclerotic heart disease of native coronary artery without angina pectoris; I25.2 Old myocardial infarction; F17.210 Nicotine dependence, cigarettes, uncomplicated; I11.0 Hypertensive heart disease with heart failure; G47.33 Obstructive sleep apnea (adult) (pediatric); R91.8 Other nonspecific abnormal finding of lung field; I27.20 Pulmonary hypertension, unspecified; K21.9 Gastro-esophageal reflux disease without esophagitis; M54.50 Low back pain, unspecified; G89.29 Other chronic pain; E87.5 Hyperkalemia; E05.90 Thyrotoxicosis, unspecified without thyrotoxic crisis or storm; K80.20 Calculus of gallbladder without cholecystitis without obstruction; Z79.01 Long term (current) use of anticoagulants; Z79.82 Long term (current) use of aspirin; Z88.2 Allergy status to sulfonamides; Z79.899 Other long term (current) drug therapy; Z79.52 Long term (current) use of systemic steroids; Z91.013 Allergy to seafood; Z95.5 Presence of coronary angioplasty implant and graft; Z99.81 Dependence on supplemental oxygen; Z86.711 Personal history of pulmonary embolism; Z86.16 Personal history of COVID-19

== ENCOUNTER 2023-11-13 08:36 | Inpatient (IN) | payer MEDICARE, MEDICAID ==
[~2023-11-13] VITALS: Ht 188 cm; Wt 104.4 kg
[2023-11-13] VITALS (11 sets, daily range): BP systolic 101–130; BP diastolic 56–82; TEMP 96.8–98; O2SAT 85–98
[~2023-11-13 08:36] MED LIST changes: +ACET-683 PO; +ASPI81CH33 PO
[2023-11-13] MEDS: NS 500 ML IV ONE (08:40)
[2023-11-13] MEDS: IPRATROPIUM 0.5MG/ALBUTEROL 2.5MG INH SOL UD 3ML (DUONEB) NEB ONE ×2 (08:50→11:13)
[2023-11-13] MEDS: ALBUTEROL SULFATE 2.5MG/0.5ML INH NEB SOLN INH ONE (08:50)
[2023-11-13 08:57] LABS: ABG BASE EXCESS -0.9 (-2.0-2.0); ABG HCO3 33.9 MMOL/L (22.0-26.0); ABG PARTIAL PRESSURE O2 187.5 mmHg (75.0-100.0); ABG STANDARD HCO3 23.8 MMOL/L. (22.0-26.0); ABG TOTAL CO2 37.4 MMOL/L (23.0-31.0); ABG pH (ARTERIAL) 7.085 UNITS (7.350-7.450)
[2023-11-13 08:58] LABS: ABG PARTIAL PRESSURE CO2 115.6 mmHg (35.0-45.0)
[2023-11-13 09:00] LABS: VENOUS HCO3 43.4 MMOL/L (23.0-27.0); VENOUS O2 SATURATION 51.6 % (60.0-80.0); VENOUS PARTIAL PRESSURE CO2 166.4 mmHg (38.0-50.0); VENOUS PARTIAL PRESSURE O2 29.3 mmHg (30.0-50.0); VENOUS PH 7.034 UNITS (7.330-7.430); VENOUS STANDARD HCO3 27.5 MMOL/L; VENOUS TOTAL CO2 48.5 MMOL/L (24.0-28.0)
[2023-11-13] MEDS ORDERED: bisoproloL fumarate 10 MG TAB PO SCH (09:00)
[2023-11-13 09:02] LABS: BASO # 0.1 10^3/uL (0.0-0.2); BASO % 0.2 % (0.0-1.0); EOS # 0.8 10^3/uL (0.0-0.5); EOS % 2.9 % (0.0-3.0); HEMATOCRIT 55.1 % (42.0-52.0); HEMOGLOBIN 16.6 g/dl (13.5-17.5); LYMPH # 3.7 10^3/uL (1.5-5.0); LYMPH % 14.2 % (24.0-44.0); MEAN CORPUSCULAR HEMOGLOBIN 30.7 pg (27.0-33.0); MEAN CORPUSCULAR HGB CONC 30.1 g/dl (32.0-36.5); MONO # 1.4 10^3/uL (0.0-0.8); MONO % 5.3 % (2.0-8.0); NEUTROPHILS # 19.9 10^3/uL (1.5-8.5); NEUTROPHILS % 76.6 % (36.0-66.0); PLATELET COUNT, AUTOMATED 268 10^3/uL (150-450); WHITE BLOOD COUNT 26.1 10^3/uL (4.0-10.0)
[2023-11-13] MEDS: METOPROLOL TART 25 MG TABLET PO ONE (09:13)
[2023-11-13] MEDS: DIGOXIN 0.125 MG TAB PO ONE (09:15)
[2023-11-13] MEDS: CEFEPIME HCL 2 GM in D5W MINI-BAG PLUS 50 ML IV ONE (09:22)
[2023-11-13 09:28] LABS: CK-MB VALUE MASS 3.1 NG/ML (<3.6)
[2023-11-13 09:30] LABS: ALBUMIN 3.4 G/DL (3.2-5.2); ALKALINE PHOSPHATASE 90 U/L (46-116); ALT/SGPT 11 U/L (7.0-40); AST/SGOT < 8 U/L (<34); BILIRUBIN,DIRECT 0.2 MG/DL (<0.4); BILIRUBIN,TOTAL 0.7 MG/DL (0.3-1.2); BLOOD UREA NITROGEN 35 MG/DL (9-23); CALCIUM LEVEL 7.8 MG/DL (8.3-10.6); CARBON DIOXIDE LEVEL 37 MMOL/L (20-31); CHLORIDE LEVEL 104 MMOL/L (98-107); CPK CREATINE PHOSPHOKINASE 51 U/L (46-171); CREATININE FOR GFR 0.97 MG/DL (0.70-1.30); GLOMERULAR FILTRATION RATE > 60.0 (>49); GLUCOSE, FASTING 239 MG/DL (74-106); MB/CK RELATIVE INDEX 6.07 (< OR =4); POTASSIUM SERUM 4.2 MMOL/L (3.5-5.1); SODIUM LEVEL 143 MMOL/L (136-145); TOTAL PROTEIN 6.7 G/DL (5.7-8.2)
[2023-11-13 09:31] LABS: THYROID STIMULATING HORMONE 1.658 uIU/ML (0.55-4.78)
[2023-11-13 09:32] LABS: THYROXINE (T4) 9.5 UG/DL (4.5-10.9)
[2023-11-13] MEDS: AZITHROMYCIN INJ 500 MG, VIAL MATE ADAPTER 1 EACH in D5W 250 ML IV ONE (09:56)
[2023-11-13] MEDS ORDERED: MED REC IN PROGRESS XX SCH (10:05)
[2023-11-13 10:31] LABS: CK-MB VALUE MASS 3.2 NG/ML (<3.6); MB/CK RELATIVE INDEX 6.27 (< OR =4)
[2023-11-13] MEDS: methylPREDNISolone 125MG 2ML VIAL IV ONE (10:38)
[2023-11-13 10:40] LABS: ABG BASE EXCESS -0.7 (-2.0-2.0); ABG HCO3 29.2 MMOL/L (22.0-26.0); ABG O2 SATURATION 95.7 % (95.0-99.0); ABG PARTIAL PRESSURE O2 86.7 mmHg (75.0-100.0); ABG STANDARD HCO3 23.9 MMOL/L. (22.0-26.0); ABG TOTAL CO2 31.4 MMOL/L (23.0-31.0)
[2023-11-13 10:41] LABS: ABG pH (ARTERIAL) 7.232 UNITS (7.350-7.450)
[2023-11-13] MEDS ORDERED: ALBU2.5V10 INH (10:53)
[2023-11-13] MEDS ORDERED: BISO10TA13 PO (10:53)
[2023-11-13] MEDS ORDERED: FLUT1INH3 INH (10:53)
[2023-11-13] MEDS ORDERED: ALBU8.5H INH (10:53)
[2023-11-13] MEDS ORDERED: HOME MED LIST COMPLETE! XX SCH (11:00)
[2023-11-13 11:33] LABS: VENOUS BASE EXCESS 1.1 (-2.0-2.0); VENOUS O2 SATURATION 95.6 % (60.0-80.0); VENOUS PARTIAL PRESSURE CO2 72.7 mmHg (38.0-50.0); VENOUS PH 7.248 UNITS (7.330-7.430); VENOUS STANDARD HCO3 25.4 MMOL/L; VENOUS TOTAL CO2 33.3 MMOL/L (24.0-28.0)
[2023-11-13] MEDS: PHENYLEPHRINE HCL INJ 50 MG in D5W 500 ML IV SCH (13:56)
[2023-11-13] MEDS: IPRATROPIUM 0.5MG/ALBUTEROL 2.5MG INH SOL UD 3ML (DUONEB) NEB PRN (17:12)
[2023-11-13] MEDS: GLYCOPYRROLATE INJ 0.2 MG/ML 2 ML VIAL NEB SCH (19:07)
[2023-11-13] MEDS: FORMOTEROL FUMARATE 20 MCG/2 ML INHALATION SOLUTION (PERFOROMIST) INH SCH (19:07)
[2023-11-13] MEDS: IPRATROPIUM 0.5MG/ALBUTEROL 2.5MG INH SOL UD 3ML (DUONEB) NEB SCH (19:07)
[2023-11-13] MEDS: ENTRESTO 24-26MG TABLET (SACUBITRIL/VALSARTAN) PO SCH (20:00)
[2023-11-13] MEDS: APIXABAN 5 MG TAB (ELIQUIS) PO SCH (20:00)
[2023-11-13] MEDS ORDERED: ENOXAPARIN 40MG/0.4ML SYRINGE (J1650 PER 10MG) SC SCH (21:00)
[2023-11-14] VITALS (25 sets, daily range): BP systolic 90–178; BP diastolic 50–95; TEMP 97.1–98.1; O2SAT 92–98
[2023-11-14] MEDS ORDERED: FUROSEMIDE 20 MG TAB PO SCH (09:00)
[2023-11-14 09:30] LABS: VENOUS BASE EXCESS 1.6 (-2.0-2.0); VENOUS HCO3 32.1 MMOL/L (23.0-27.0); VENOUS O2 SATURATION 88.5 % (60.0-80.0); VENOUS PARTIAL PRESSURE CO2 78.4 mmHg (38.0-50.0); VENOUS PARTIAL PRESSURE O2 59.9 mmHg (30.0-50.0); VENOUS STANDARD HCO3 25.6 MMOL/L; VENOUS TOTAL CO2 34.5 MMOL/L (24.0-28.0)
[2023-11-14 09:39] LABS: BASO % 0.1 % (0.0-1.0); EOS % 0.1 % (0.0-3.0); HEMATOCRIT 50.5 % (42.0-52.0); HEMOGLOBIN 15.3 g/dl (13.5-17.5); LYMPH # 0.8 10^3/uL (1.5-5.0); LYMPH % 6.8 % (24.0-44.0); MEAN CORPUSCULAR HEMOGLOBIN 30.9 pg (27.0-33.0); MEAN CORPUSCULAR HGB CONC 30.3 g/dl (32.0-36.5); MONO # 0.6 10^3/uL (0.0-0.8); MONO % 5.1 % (2.0-8.0); NEUTROPHILS # 10.5 10^3/uL (1.5-8.5); NEUTROPHILS % 87.6 % (36.0-66.0); PLATELET COUNT, AUTOMATED 166 10^3/uL (150-450); RED BLOOD COUNT 4.95 10^6/uL (4.30-6.10)
[2023-11-14] MEDS: bisoproloL fumarate 10 MG TAB PO SCH (09:47)
[2023-11-14] MEDS: FUROSEMIDE 20MG/2ML VIAL IV ONE (09:47)
[2023-11-14] MEDS: AZITHROMYCIN 250MG TABLET PO SCH (09:47)
[2023-11-14] MEDS: methylPREDNISolone 40MG 1ML VIAL IV SCH (09:47)
[2023-11-14] MEDS: PANTOPRAZOLE 40MG TAB (PROTONIX) PO SCH (09:47)
[2023-11-14] MEDS: DIGOXIN 0.125 MG TAB PO SCH (09:48)
[2023-11-14 10:05] LABS: BLOOD UREA NITROGEN 35 MG/DL (9-23); CALCIUM LEVEL 8.2 MG/DL (8.3-10.6); CARBON DIOXIDE LEVEL 37 MMOL/L (20-31); CHLORIDE LEVEL 102 MMOL/L (98-107); CREATININE FOR GFR 0.85 MG/DL (0.70-1.30); DIGOXIN LEVEL 0.5 NG/ML (0.8-2.0); GLOMERULAR FILTRATION RATE > 60.0 (>49); GLUCOSE, FASTING 99 MG/DL (74-106); MAGNESIUM LEVEL 2.5 MG/DL (1.8-2.4); PHOSPHORUS LEVEL 4.1 MG/DL (2.4-5.1); SODIUM LEVEL 141 MMOL/L (136-145)
[2023-11-14] MEDS ORDERED: VANCOMYCIN HCL 750 MG, VIAL MATE ADAPTER 1 EACH in D5W 250 ML IV SCH (12:30)
[2023-11-14] MEDS: VANCOMYCIN HCL 1,000 MG, VIAL MATE ADAPTER 1 EACH in D5W 250 ML IV ONE (13:59)
[2023-11-14] MEDS: VANCOMYCIN HCL 1,000 MG, VIAL MATE ADAPTER 1 EACH in D5W 250 ML IV SCH (15:25)
[2023-11-15] VITALS (8 sets, daily range): BP systolic 98–136; BP diastolic 67–102; TEMP 96.8–98.7; O2SAT 94–98
[2023-11-15 08:34] LABS: EOS % 0.4 % (0.0-3.0); HEMATOCRIT 44.6 % (42.0-52.0); HEMOGLOBIN 13.9 g/dl (13.5-17.5); LYMPH # 1.3 10^3/uL (1.5-5.0); MEAN CORPUSCULAR HEMOGLOBIN 31.4 pg (27.0-33.0); MEAN CORPUSCULAR HGB CONC 31.2 g/dl (32.0-36.5); MEAN CORPUSCULAR VOLUME 100.9 fl (80.0-96.0); MONO # 0.5 10^3/uL (0.0-0.8); MONO % 4.9 % (2.0-8.0); NEUTROPHILS # 9.1 10^3/uL (1.5-8.5); NEUTROPHILS % 82.2 % (36.0-66.0); PLATELET COUNT, AUTOMATED 153 10^3/uL (150-450); RED BLOOD COUNT 4.42 10^6/uL (4.30-6.10)
[2023-11-15 08:52] LABS: VANCOMYCIN LEVEL TROUGH 14.5 UG/ML (10.0-20.0)
[2023-11-15 08:53] LABS: BLOOD UREA NITROGEN 31 MG/DL (9-23); CARBON DIOXIDE LEVEL 38 MMOL/L (20-31); CHLORIDE LEVEL 103 MMOL/L (98-107); CREATININE FOR GFR 0.77 MG/DL (0.70-1.30); GLOMERULAR FILTRATION RATE > 60.0 (>49); GLUCOSE, FASTING 98 MG/DL (74-106); MAGNESIUM LEVEL 2.2 MG/DL (1.8-2.4); POTASSIUM SERUM 4.4 MMOL/L (3.5-5.1); SODIUM LEVEL 142 MMOL/L (136-145)
[2023-11-15] MEDS: ACETAMINOPHEN TAB 650MG DOSE (2X325MG) PO PRN (10:00)
[2023-11-15 11:54] LABS: PROCALCITONIN 0.53 ng/ml
[2023-11-15] MEDS: VANCOMYCIN HCL 500 MG in D5W MINI-BAG PLUS 100 ML IV ONE (12:18)
[2023-11-15] MEDS: DIGOXIN 0.25 MG TAB PO ONE (12:18)
[2023-11-15] MEDS: FUROSEMIDE 20 MG TAB PO SCH (12:18)
[2023-11-15] MEDS: VANCOMYCIN HCL 750 MG, VIAL MATE ADAPTER 1 EACH in D5W 250 ML IV SCH ×2 (19:24→20:29)
[2023-11-16 03:42] VITALS: BP 123/72; TEMP 97.5; O2SAT 95
[2023-11-16 07:33] LABS: VANCOMYCIN LEVEL TROUGH 18.8 UG/ML (10.0-20.0)
[2023-11-16 07:34] LABS: DIGOXIN LEVEL 0.9 NG/ML (0.8-2.0)
[2023-11-16 07:47] LABS: BLOOD UREA NITROGEN 27 MG/DL (9-23); CALCIUM LEVEL 7.6 MG/DL (8.3-10.6); CARBON DIOXIDE LEVEL 38 MMOL/L (20-31); CHLORIDE LEVEL 104 MMOL/L (98-107); CREATININE FOR GFR 0.82 MG/DL (0.70-1.30); GLOMERULAR FILTRATION RATE > 60.0 (>49); GLUCOSE, FASTING 102 MG/DL (74-106); POTASSIUM SERUM 4.2 MMOL/L (3.5-5.1); SODIUM LEVEL 142 MMOL/L (136-145)
[2023-11-16 07:48] LABS: EOS # 0.1 10^3/uL (0.0-0.5); EOS % 0.9 % (0.0-3.0); HEMATOCRIT 42.7 % (42.0-52.0); HEMOGLOBIN 13.3 g/dl (13.5-17.5); LYMPH # 1.4 10^3/uL (1.5-5.0); LYMPH % 18.1 % (24.0-44.0); MEAN CORPUSCULAR HEMOGLOBIN 30.9 pg (27.0-33.0); MEAN CORPUSCULAR HGB CONC 31.1 g/dl (32.0-36.5); MEAN CORPUSCULAR VOLUME 99.3 fl (80.0-96.0); MONO # 0.4 10^3/uL (0.0-0.8); MONO % 5.7 % (2.0-8.0); NEUTROPHILS # 5.7 10^3/uL (1.5-8.5); NEUTROPHILS % 74.9 % (36.0-66.0); PLATELET COUNT, AUTOMATED 151 10^3/uL (150-450); WHITE BLOOD COUNT 7.6 10^3/uL (4.0-10.0)
[2023-11-16 09:28] VITALS: BP 125/77
[2023-11-16] MEDS: DIGOXIN 0.125 MG TAB PO SCH (09:29)
[2023-11-16] MEDS: predniSONE 20 MG TAB PO SCH (09:30)
[2023-11-16] MEDS: AUGMENTIN 875 MG TAB PO SCH (09:30)
== END 2023-11-16 18:19 | disposition home health service (06) | DRG 193 ==
LOC: EDBD 08:36 → M ED 08:36 → M ED INP 10:08 → M ICU 13:29
PROVIDERS: ADMIT Internal Medicine Pulmonary Disease; ATTEND Student in an Organized Health Care Education/Training Program
DX: J12.9 Viral pneumonia, unspecified (principal); J96.22 Acute and chronic respiratory failure with hypercapnia; G93.41 Metabolic encephalopathy; J96.21 Acute and chronic respiratory failure with hypoxia; J44.1 Chronic obstructive pulmonary disease with (acute) exacerbation; I50.22 Chronic systolic (congestive) heart failure; E87.29 Other acidosis; I48.91 Unspecified atrial fibrillation; G47.33 Obstructive sleep apnea (adult) (pediatric); I11.0 Hypertensive heart disease with heart failure; F17.200 Nicotine dependence, unspecified, uncomplicated; I25.10 Atherosclerotic heart disease of native coronary artery without angina pectoris; I25.2 Old myocardial infarction; Z66 Do not resuscitate; Z86.711 Personal history of pulmonary embolism; E02 Subclinical iodine-deficiency hypothyroidism; M54.50 Low back pain, unspecified; B97.89 Other viral agents as the cause of diseases classified elsewhere; G89.29 Other chronic pain; K21.9 Gastro-esophageal reflux disease without esophagitis; R91.1 Solitary pulmonary nodule; Z79.01 Long term (current) use of anticoagulants; Z79.52 Long term (current) use of systemic steroids; Z79.899 Other long term (current) drug therapy; Z91.013 Allergy to seafood

== ENCOUNTER → 2024-01-03 | Outpatient (REF) | payer MEDICARE, MEDICAID ==
[~2024-01-03] MED LIST changes: +ALBU2.5V10 INH; +BISO10TA13 PO; +FLUT1INH3 INH
[2024-01-03 18:33] LABS: THYROID STIMULATING HORMONE 0.408 uIU/ML (0.55-4.78)
[2024-01-03 18:35] LABS: HEMOGLOBIN A1c 5.1 % (4.0-6.0)
[2024-01-03 18:39] LABS: ALBUMIN 3.7 G/DL (3.2-5.2); ALKALINE PHOSPHATASE 82 U/L (46-116); ALT/SGPT < 9 U/L (7.0-40); AST/SGOT 10 U/L (<34); BILIRUBIN,TOTAL 0.4 MG/DL (0.3-1.2); BLOOD UREA NITROGEN 21 MG/DL (9-23); CALCIUM LEVEL 8.9 MG/DL (8.3-10.6); CARBON DIOXIDE LEVEL 32 MMOL/L (20-31); CHLORIDE LEVEL 105 MMOL/L (98-107); CHOLESTEROL LEVEL 198 MG/DL (<200); CHOLESTEROL RISK RATIO 4.79 (<5); CREATININE FOR GFR 0.85 MG/DL (0.70-1.30); GLOMERULAR FILTRATION RATE > 60.0 (>49); GLUCOSE, FASTING 109 MG/DL (74-106); HDL CHOLESTEROL 41.3 MG/DL (>40); LDL CHOLESTEROL 142.7 MG/DL (<100); NON-HDL-C 156.7 MG/DL; POTASSIUM SERUM 4.9 MMOL/L (3.5-5.1); SODIUM LEVEL 142 MMOL/L (136-145); TOTAL PROTEIN 6.7 G/DL (5.7-8.2); TRIGLYCERIDES LEVEL 70 MG/DL (<150)
== END ==
LOC: M LAB REF 16:42
PROVIDERS: ATTEND Nurse Practitioner Family
DX: I50.9 Heart failure, unspecified (principal); E66.9 Obesity, unspecified; Z12.5 Encounter for screening for malignant neoplasm of prostate
CPT/HCPCS: 80053; 80061; 83036; 84443; G0103

== ENCOUNTER 2024-04-09 11:03 | Inpatient (IN) | payer MEDICARE, MEDICAID ==
[~2024-04-09] VITALS: Ht 182.9 cm; Wt 94.0 kg
[2024-04-09 11:35] LABS: BASO % 0.4 % (0.0-1.0); EOS # 0.2 10^3/uL (0.0-0.5); EOS % 2.8 % (0.0-3.0); HEMATOCRIT 43.6 % (42.0-52.0); HEMOGLOBIN 13.4 g/dl (13.5-17.5); LYMPH # 0.8 10^3/uL (1.5-5.0); MEAN CORPUSCULAR HEMOGLOBIN 30.1 pg (27.0-33.0); MEAN CORPUSCULAR HGB CONC 30.7 g/dl (32.0-36.5); MONO # 0.3 10^3/uL (0.0-0.8); NEUTROPHILS # 6.1 10^3/uL (1.5-8.5); NEUTROPHILS % 81.3 % (36.0-66.0); PLATELET COUNT, AUTOMATED 167 10^3/uL (150-450); RED BLOOD COUNT 4.45 10^6/uL (4.30-6.10); WHITE BLOOD COUNT 7.5 10^3/uL (4.0-10.0)
[2024-04-09 12:05] LABS: CK-MB VALUE MASS 3.4 NG/ML (<3.6)
[2024-04-09 12:08] LABS: CPK CREATINE PHOSPHOKINASE 70 U/L (46-171); MB/CK RELATIVE INDEX 4.85 (< OR =4)
[2024-04-09 12:09] LABS: ALBUMIN 3.7 G/DL (3.2-5.2); ALKALINE PHOSPHATASE 122 U/L (46-116); ALT/SGPT 16 U/L (7.0-40); AST/SGOT 26 U/L (<34); BILIRUBIN,DIRECT 0.3 MG/DL (<0.4); BILIRUBIN,TOTAL 0.7 MG/DL (0.3-1.2); BLOOD UREA NITROGEN 22 MG/DL (9-23); CALCIUM LEVEL 9.6 MG/DL (8.3-10.6); CARBON DIOXIDE LEVEL 31 MMOL/L (20-31); CHLORIDE LEVEL 107 MMOL/L (98-107); CREATININE FOR GFR 0.81 MG/DL (0.70-1.30); DIGOXIN LEVEL < 0.1 NG/ML (0.8-2.0); FREE T4 1.34 NG/DL (0.89-1.76); GLOMERULAR FILTRATION RATE > 60.0 (>49); GLUCOSE, FASTING 126 MG/DL (74-106); PHOSPHORUS LEVEL 3.4 MG/DL (2.4-5.1); POTASSIUM SERUM 4.3 MMOL/L (3.5-5.1); SODIUM LEVEL 143 MMOL/L (136-145); TOTAL PROTEIN 7.1 G/DL (5.7-8.2)
[2024-04-09 12:10] LABS: THYROID STIMULATING HORMONE 1.108 uIU/ML (0.55-4.78)
[2024-04-09] MEDS: DIGOXIN 0.125 MG TAB PO ONE (12:18)
[2024-04-09] MEDS: APIXABAN 5 MG TAB (ELIQUIS) PO ONE ×2 (12:18→14:52)
[2024-04-09] MEDS ORDERED: ISOVUE-370 76% 100ML VIAL As Ordered ONE (12:29)
[2024-04-09] MEDS: DIGOXIN INJ 0.5 MG/2 ML AMP IV ONE (13:02)
[2024-04-09] MEDS: FUROSEMIDE 40MG/4ML VIAL IV ONE (13:04)
[2024-04-09] MEDS: IPRATROPIUM 0.5MG/ALBUTEROL 2.5MG INH SOL UD 3ML (DUONEB) NEB ONE (13:29)
[2024-04-09 13:32] LABS: CK-MB VALUE MASS 4.1 NG/ML (<3.6)
[2024-04-09 13:35] LABS: MB/CK RELATIVE INDEX 5.54 (< OR =4)
[2024-04-09] MEDS: LORazepam 2 MG/ML 1ML VIAL IV STA (13:35)
[2024-04-09] MEDS: dilTIAZem 25MG/5ML VIAL IV STA ×2 (14:18→14:36)
[2024-04-09 15:06] LABS: ABG BASE EXCESS -2.1 (-2.0-2.0); ABG HCO3 29.2 MMOL/L (22.0-26.0); ABG O2 SATURATION 91.4 % (95.0-99.0); ABG STANDARD HCO3 22.6 MMOL/L. (22.0-26.0); ABG TOTAL CO2 31.7 MMOL/L (23.0-31.0)
[2024-04-09 15:09] LABS: ABG pH (ARTERIAL) 7.164 UNITS (7.350-7.450)
[2024-04-09] MEDS: MORPHINE 2 MG/ML 1ML VIAL IV ONE (15:43)
[2024-04-09] MEDS ORDERED: ATOR1TAB21 PO (17:22)
[2024-04-09] MEDS ORDERED: ASPE4PAD TOP (17:22)
[2024-04-09] MEDS ORDERED: HOME MED LIST COMPLETE! XX SCH (17:25)
[2024-04-09 18:00] VITALS: BP 166/81; TEMP 96.7; O2SAT 96
[2024-04-09] MEDS: methylPREDNISolone 125MG 2ML VIAL IV SCH (18:18)
[2024-04-09] MEDS: cefTRIAXone SOD 1 GM in DEXTROSE 5% (D5W) ADV/MINI-BAG 50 ML IV SCH (18:18)
[2024-04-09] MEDS: DOXYCYCLINE HYCLATE 100 MG in D5W MINI-BAG PLUS 100 ML IV SCH (18:51)
[2024-04-09] MEDS: GLYCOPYRROLATE INJ 0.2 MG/ML 2 ML VIAL NEB SCH (19:07)
[2024-04-09] MEDS: FORMOTEROL FUMARATE 20 MCG/2 ML INHALATION SOLUTION (PERFOROMIST) INH SCH (19:07)
[2024-04-09] MEDS: IPRATROPIUM 0.02% SOLN 0.5MG 2.5ML NEB INH SCH (19:08)
[2024-04-09] MEDS: BUDESONIDE 0.5 MG/2 ML INHALATION SUSPENSION NEB SCH (19:08)
[2024-04-09] MEDS: IPRATROPIUM 0.5MG/ALBUTEROL 2.5MG INH SOL UD 3ML (DUONEB) NEB SCH (20:00)
[2024-04-09 20:01] VITALS: BP 133/104; TEMP 97.5; O2SAT 96
[2024-04-09 21:00] VITALS: BP 114/85; O2SAT 95
[2024-04-09 21:59] LABS: ABG HCO3 28.4 MMOL/L (22.0-26.0); ABG O2 SATURATION 98.5 % (95.0-99.0); ABG PARTIAL PRESSURE CO2 51.5 mmHg (35.0-45.0); ABG PARTIAL PRESSURE O2 103.4 mmHg (75.0-100.0); ABG STANDARD HCO3 26.2 MMOL/L. (22.0-26.0)
[2024-04-09 22:01] VITALS: BP 119/96; O2SAT 97
[2024-04-09] MEDS: ENTRESTO 24-26MG TABLET (SACUBITRIL/VALSARTAN) PO SCH (22:19)
[2024-04-09 23:00] VITALS: BP 130/88; O2SAT 95
[2024-04-10] VITALS (18 sets, daily range): BP systolic 96–119; BP diastolic 61–92; TEMP 97.6–98.3; O2SAT 93–98
[2024-04-10 05:33] LABS: ABG BASE EXCESS 3.9 (-2.0-2.0); ABG HCO3 31.3 MMOL/L (22.0-26.0); ABG O2 SATURATION 98.2 % (95.0-99.0); ABG PARTIAL PRESSURE CO2 58.2 mmHg (35.0-45.0); ABG PARTIAL PRESSURE O2 106.2 mmHg (75.0-100.0); ABG TOTAL CO2 33.1 MMOL/L (23.0-31.0); ABG pH (ARTERIAL) 7.348 UNITS (7.350-7.450)
[2024-04-10 05:38] LABS: HEMATOCRIT 44.2 % (42.0-52.0); HEMOGLOBIN 13.9 g/dl (13.5-17.5); LYMPH # 0.5 10^3/uL (1.5-5.0); LYMPH % 9.1 % (24.0-44.0); MEAN CORPUSCULAR HEMOGLOBIN 30.7 pg (27.0-33.0); MEAN CORPUSCULAR HGB CONC 31.4 g/dl (32.0-36.5); MEAN CORPUSCULAR VOLUME 97.6 fl (80.0-96.0); MONO # 0.1 10^3/uL (0.0-0.8); MONO % 0.9 % (2.0-8.0); NEUTROPHILS % 89.6 % (36.0-66.0); PLATELET COUNT, AUTOMATED 181 10^3/uL (150-450); RED BLOOD COUNT 4.53 10^6/uL (4.30-6.10); WHITE BLOOD COUNT 5.6 10^3/uL (4.0-10.0)
[2024-04-10 06:08] LABS: ALBUMIN 3.6 G/DL (3.2-5.2); ALKALINE PHOSPHATASE 120 U/L (46-116); ALT/SGPT 14 U/L (7.0-40); AST/SGOT 15 U/L (<34); BILIRUBIN,TOTAL 0.9 MG/DL (0.3-1.2); BLOOD UREA NITROGEN 25 MG/DL (9-23); CALCIUM LEVEL 9.2 MG/DL (8.3-10.6); CARBON DIOXIDE LEVEL 30 MMOL/L (20-31); CHLORIDE LEVEL 103 MMOL/L (98-107); CK-MB VALUE MASS 3.6 NG/ML (<3.6); CPK CREATINE PHOSPHOKINASE 75 U/L (46-171); CREATININE FOR GFR 0.77 MG/DL (0.70-1.30); GLOMERULAR FILTRATION RATE > 60.0 (>49); GLUCOSE, FASTING 131 MG/DL (74-106); MAGNESIUM LEVEL 2.2 MG/DL (1.8-2.4); PHOSPHORUS LEVEL 3.9 MG/DL (2.4-5.1); POTASSIUM SERUM 4.8 MMOL/L (3.5-5.1); SODIUM LEVEL 139 MMOL/L (136-145); TOTAL PROTEIN 7.3 G/DL (5.7-8.2)
[2024-04-10] MEDS: APIXABAN 5 MG TAB (ELIQUIS) PO SCH (08:55)
[2024-04-10] MEDS: PANTOPRAZOLE 40MG VIAL IV SCH (08:57)
[2024-04-10] MEDS: DIGOXIN INJ 0.5 MG/2 ML AMP IV SCH (08:57)
[2024-04-10] MEDS: FUROSEMIDE 20MG/2ML VIAL IV SCH (08:58)
[2024-04-10 09:23] LABS: PROCALCITONIN 0.26 ng/ml
[2024-04-10] MEDS: dilTIAZem 25MG/5ML VIAL IV STA (09:41)
[2024-04-10] MEDS: AMIODARONE 200 MG TAB (PACERONE) PO SCH (10:28)
[2024-04-10] MEDS ORDERED: ACETAMINOPHEN 325 MG TAB PO PRN (12:00)
[2024-04-10] MEDS: ACETAMINOPHEN 325 MG TAB PO PRN (13:37)
[2024-04-10] MEDS: bisoproloL fumarate 10 MG TAB PO SCH (13:41)
[2024-04-10] MEDS: bisoproloL fumarate 10 MG TAB PO ONE (16:24)
[2024-04-10] MEDS: DOXYCYCLINE HYCLATE 100MG TABLET PO SCH (20:29)
[2024-04-11] VITALS (13 sets, daily range): BP systolic 114–142; BP diastolic 74–98; TEMP 97.4–98.4; O2SAT 88–99
[2024-04-11] MEDS: DIGOXIN INJ 0.5 MG/2 ML AMP IV STA (08:43)
[2024-04-11] MEDS: FUROSEMIDE 40 MG TAB PO SCH (08:44)
[2024-04-11] MEDS: PANTOPRAZOLE 40MG TAB (PROTONIX) PO SCH (08:44)
[2024-04-11] MEDS: bisoproloL fumarate 10 MG TAB PO SCH (08:44)
[2024-04-11] MEDS: methylPREDNISolone 40MG 1ML VIAL IV ONE (08:45)
[2024-04-11 09:04] LABS: IONIZED CALCIUM 4.6 MG/DL (4.5-5.3)
[2024-04-11 09:24] LABS: HEMATOCRIT 44.4 % (42.0-52.0); HEMOGLOBIN 14.2 g/dl (13.5-17.5); LYMPH # 0.5 10^3/uL (1.5-5.0); LYMPH % 4.1 % (24.0-44.0); MEAN CORPUSCULAR HEMOGLOBIN 30.3 pg (27.0-33.0); MEAN CORPUSCULAR VOLUME 94.7 fl (80.0-96.0); MONO # 0.2 10^3/uL (0.0-0.8); MONO % 1.8 % (2.0-8.0); NEUTROPHILS % 93.5 % (36.0-66.0); PLATELET COUNT, AUTOMATED 203 10^3/uL (150-450); RED BLOOD COUNT 4.69 10^6/uL (4.30-6.10); WHITE BLOOD COUNT 12.8 10^3/uL (4.0-10.0)
[2024-04-11 09:42] LABS: BLOOD UREA NITROGEN 34 MG/DL (9-23); CALCIUM LEVEL 9.3 MG/DL (8.3-10.6); CARBON DIOXIDE LEVEL 35 MMOL/L (20-31); CHLORIDE LEVEL 101 MMOL/L (98-107); CREATININE FOR GFR 0.83 MG/DL (0.70-1.30); GLOMERULAR FILTRATION RATE > 60.0 (>49); GLUCOSE, FASTING 132 MG/DL (74-106); MAGNESIUM LEVEL 2.1 MG/DL (1.8-2.4); POTASSIUM SERUM 5.1 MMOL/L (3.5-5.1); SODIUM LEVEL 137 MMOL/L (136-145)
[2024-04-11] MEDS: DIGOXIN INJ 0.5 MG/2 ML AMP IV ONE ×2 (15:14→20:34)
[2024-04-11] MEDS: LevoFLOXacin 750 MG TABLET PO SCH (17:21)
[2024-04-11] MEDS ORDERED: methylPREDNISolone 40MG 1ML VIAL IV SCH (18:00)
[2024-04-11] MEDS: predniSONE 20 MG TAB PO SCH (20:33)
[2024-04-12 03:43] VITALS: BP 123/92; TEMP 97.9; O2SAT 97
[2024-04-12 06:02] LABS: BASO % 0.1 % (0.0-1.0); HEMATOCRIT 45.2 % (42.0-52.0); HEMOGLOBIN 14.4 g/dl (13.5-17.5); LYMPH # 0.4 10^3/uL (1.5-5.0); LYMPH % 2.8 % (24.0-44.0); MEAN CORPUSCULAR HGB CONC 31.9 g/dl (32.0-36.5); MEAN CORPUSCULAR VOLUME 94.2 fl (80.0-96.0); MONO # 0.3 10^3/uL (0.0-0.8); MONO % 2.4 % (2.0-8.0); NEUTROPHILS # 12.7 10^3/uL (1.5-8.5); NEUTROPHILS % 94.1 % (36.0-66.0); PLATELET COUNT, AUTOMATED 201 10^3/uL (150-450); WHITE BLOOD COUNT 13.5 10^3/uL (4.0-10.0)
[2024-04-12 06:36] LABS: BLOOD UREA NITROGEN 32 MG/DL (9-23); CALCIUM LEVEL 8.8 MG/DL (8.3-10.6); CARBON DIOXIDE LEVEL 34 MMOL/L (20-31); CHLORIDE LEVEL 103 MMOL/L (98-107); CREATININE FOR GFR 0.88 MG/DL (0.70-1.30); DIGOXIN LEVEL 0.9 NG/ML (0.8-2.0); GLOMERULAR FILTRATION RATE > 60.0 (>49); GLUCOSE, FASTING 138 MG/DL (74-106); POTASSIUM SERUM 4.4 MMOL/L (3.5-5.1); SODIUM LEVEL 138 MMOL/L (136-145)
[2024-04-12] MEDS ORDERED: ALBU2.5V10 INH (08:54)
[2024-04-12] MEDS ORDERED: ENTR1TAB PO (08:54)
[2024-04-12] MEDS ORDERED: FURO40TA2 PO (08:54)
[2024-04-12] MEDS ORDERED: PRIL20TA2 PO (08:54)
[2024-04-12] MEDS ORDERED: PRED20TA PO (08:54)
[2024-04-12] MEDS ORDERED: AMOX875T2 PO (08:54)
[2024-04-12] MEDS ORDERED: ALBU8.5H INH (08:54)
[2024-04-12] MEDS ORDERED: ELIQ5TAB PO (08:54)
[2024-04-12] MEDS ORDERED: PRED10TA2 PO (08:54)
[2024-04-12] MEDS ORDERED: AMIO200T49 PO (08:54)
[2024-04-12 08:58] VITALS: BP 133/93; TEMP 97.5; O2SAT 95
[2024-04-12 09:00] VITALS: BP 133/93
[2024-04-12] MEDS: DIGOXIN 0.125 MG TAB PO SCH (09:00)
[2024-04-12] MEDS ORDERED: NICO21PAT TOP (10:45)
[2024-04-12] MEDS ORDERED: SELF1KIT MC (10:50)
[2024-04-12] MEDS ORDERED: DOXY100C3 PO (10:54)
[2024-04-12] MEDS ORDERED: BACI1CAP PO (10:54)
[2024-04-12] MEDS ORDERED: CEFD300CAP PO (10:54)
[2024-04-12] MEDS ORDERED: INCR1INH INH (10:56)
[2024-04-12] MEDS ORDERED: AIRD1INH3 INH (10:56)
== END 2024-04-12 16:07 | disposition home health service (06) | DRG 308 ==
LOC: M ED 11:03 → EDBD 11:03 → M ED INP 16:17 → M ICU 17:58 → M PCU 04-11 09:46
PROVIDERS: ADMIT Internal Medicine Critical Care Medicine; ATTEND General Practice
DX: I48.91 Unspecified atrial fibrillation (principal); J96.21 Acute and chronic respiratory failure with hypoxia; J18.9 Pneumonia, unspecified organism; J96.22 Acute and chronic respiratory failure with hypercapnia; I50.32 Chronic diastolic (congestive) heart failure; J44.1 Chronic obstructive pulmonary disease with (acute) exacerbation; J44.0 Chronic obstructive pulmonary disease with (acute) lower respiratory infection; I27.82 Chronic pulmonary embolism; G47.33 Obstructive sleep apnea (adult) (pediatric); I11.0 Hypertensive heart disease with heart failure; F17.200 Nicotine dependence, unspecified, uncomplicated; I25.10 Atherosclerotic heart disease of native coronary artery without angina pectoris; J43.2 Centrilobular emphysema; G89.29 Other chronic pain; M54.50 Low back pain, unspecified; K21.9 Gastro-esophageal reflux disease without esophagitis; R91.8 Other nonspecific abnormal finding of lung field; E78.5 Hyperlipidemia, unspecified; Z66 Do not resuscitate; Z99.81 Dependence on supplemental oxygen; Z79.01 Long term (current) use of anticoagulants; Z95.1 Presence of aortocoronary bypass graft; Z79.899 Other long term (current) drug therapy; Z91.013 Allergy to seafood

== ENCOUNTER → 2024-06-08 | Outpatient (CLI) | payer MEDICARE, MEDICAID ==
[~2024-06-08] MED LIST changes: +AIRD1INH3 INH; +ASPE4PAD TOP; +ATOR1TAB21 PO; +BACI1CAP PO; +CEFD300CAP PO; +DOXY100C3 PO; +NICO21PAT TOP; +PRIL20TA2 PO; +SELF1KIT MC
[2024-06-08 09:40] LABS: CHOLESTEROL RISK RATIO 3.09 (<5); HDL CHOLESTEROL 56.6 MG/DL (>40); LDL CHOLESTEROL 98.4 MG/DL (<100); NON-HDL-C 118.4 MG/DL
== END ==
LOC: M LAB 08:33
PROVIDERS: ATTEND Registered Nurse
DX: I25.10 Atherosclerotic heart disease of native coronary artery without angina pectoris (principal)

== ENCOUNTER → 2024-08-07 | Outpatient (CLI) | payer MEDICAID, MEDICARE, OTHER | LOC: M PLAIMG 09:39 | PROVIDERS: ATTEND Internal Medicine Pulmonary Disease | DX: R91.8 Other nonspecific abnormal finding of lung field (principal) ==

== ENCOUNTER → 2025-03-28 | Outpatient (CLI) | payer MEDICARE, MEDICAID ==
[~2025-03-28] MED LIST changes: -AMIO200T49 OR; -AMIO200T49 PO; +AMIO200T54 OR; +AMIO200T54 PO; +LISI40TA10 PO; -LISI40TA4 PO
[2025-03-28 15:21] LABS: BASO # 0.1 10^3/uL (0.0-0.2); BASO % 0.6 % (0.0-1.0); EOS # 0.6 10^3/uL (0.0-0.5); EOS % 7.5 % (0.0-3.0); LYMPH # 1.9 10^3/uL (1.5-5.0); LYMPH % 22.6 % (24.0-44.0); MONO # 0.5 10^3/uL (0.0-0.8); MONO % 6.4 % (2.0-8.0); NEUTROPHILS # 5.2 10^3/uL (1.5-8.5); NEUTROPHILS % 62.5 % (36.0-66.0); PLATELET COUNT, AUTOMATED 212 10^3/uL (150-450)
[2025-03-28 15:50] LABS: CALCIUM LEVEL 8.4 MG/DL (8.3-10.6); CARBON DIOXIDE LEVEL 33.0 MMOL/L (20-31); CHLORIDE LEVEL 104.0 MMOL/L (98-107); CHOLESTEROL LEVEL 139.0 MG/DL (<200); CHOLESTEROL RISK RATIO 2.75 (<5); CREATININE FOR GFR 0.95 MG/DL (0.70-1.30); GLOMERULAR FILTRATION RATE 89.9 (>49); LDL CHOLESTEROL 70.2 MG/DL (<100); MAGNESIUM LEVEL 2.1 MG/DL (1.8-2.4); NON-HDL-C 88.6 MG/DL; POTASSIUM SERUM 4.2 MMOL/L (3.5-5.1); SODIUM LEVEL 144.0 MMOL/L (136-145); TRIGLYCERIDES LEVEL 92.0 MG/DL (<150)
[2025-03-28 15:52] LABS: FREE T4 1.53 NG/DL (0.89-1.76)
== END ==
LOC: M EKG 14:04
PROVIDERS: ATTEND Internal Medicine Cardiovascular Disease
DX: I48.0 Paroxysmal atrial fibrillation (principal); E78.00 Pure hypercholesterolemia, unspecified